=== PATIENT | female | born 1965 | race Caucasian/White ===

== ENCOUNTER 2020-05-10 14:08 | Outpatient (CLI) | payer BC, SELFPAY ==
--- NOTE | 2020-05-10 14:10 | ECG_ITS ---
Measurements Intervals [place] Rate: 93 P: 66 [place]: 134 QRS: 61 QRSD: 81 T: 40 QT: 331 QTc: 414 Interpretive Statements SINUS RHYTHM POSSIBLE LEFT ATRIAL ENLARGEMENT RSR' IN V1 OR V2, CONSIDER RIGHT VENTRICULAR HYPERTROPHY OR RIGHT VCD MINIMAL Q WAVES- INFERIOR LEADS BASELINE ARTIFACT- V4, V6 BORDERLINE ECG Electronically Signed On 05-10-2020 14:27:21 CDT by Zachery Jonhston D.O.
[2020-05-10 14:56] LABS: Alanine Aminotransferase 14 U/L (4-35); Albumin Level 4.1 g/dL (3.5-5.1); Alkaline Phosphatase 71 U/L (38-126); Amylase 126 U/L (30-110); Aspartate Amino Transferase 24 U/L (14-36); Bilirubin,Total 0.2 mg/dL (0.2-1.3); Lipase 160 U/L (23-300)
== END 2020-05-10 14:09 | disposition home or self-care (01) ==
PROVIDERS: PCP Family Medicine; Visit Provider Surgery
DX: K80.10 Calculus of gallbladder with chronic cholecystitis without obstruction (principal); Z01.818 Encounter for other preprocedural examination; R94.31 Abnormal electrocardiogram [ECG] [EKG]
CPT/HCPCS: 36415; 80076; 82150; 83690; 93005

== ENCOUNTER 2020-05-11 01:12 | Outpatient (CLI) | payer BC, SELFPAY ==
[2020-05-11 18:06] LABS: SARS-CoV-2 RNA PCR Negative
== END 2020-05-11 01:13 | disposition home or self-care (01) ==
LOC: ANHCOVIDDT 01:12
PROVIDERS: PCP Family Medicine; Visit Provider Surgery
DX: Z01.812 Encounter for preprocedural laboratory examination (principal); Z11.59 Encounter for screening for other viral diseases
CPT/HCPCS: 87635; C9803; U0003

== ENCOUNTER 2020-05-14 03:51 | Day surgery (SDC) | payer BC, SELFPAY ==
[2020-05-09 10:10] VITALS: BMI 24.2
[2020-05-14] VITALS (9 sets, daily range): BP systolic 112–151; BP diastolic 71–97; PULSE 65–87; RESP 12–16; TEMP 36.3; O2SAT 98–100
[2020-05-14] MEDS: LACTATED RINGERS 1,000 ML 30 ML IV CONT ×2 (12:30→16:16)
[2020-05-14] MEDS: KETOROLAC 15 MG/ML VIAL (*BKC) IV PUSH (12:52)
[2020-05-14] MEDS: ACETAMINOPHEN 500 MG TABLET 1000 MG PO (12:52)
--- NOTE | 2020-05-14 12:58 | P.PNAN_ITS ---
Anes - Initial Pre Proc Eval Procedure: Operation Date: 05/14/20 13:00 Proposed Procedures p Laparoscopic Cholecystectomy, Possible Open, Possible Intraoperative Cholangiogram - Jose Maria Cuevas MD s Umbilical Hernia Repair - Jose Maria Cuevas MD Date/Time: 05/14/20 12:58 Surgeon: Jose Maria Cuevas MD Pre Op Diagnosis: Chronic Cholecystitis With Cholelithiasis,Umbil he Patient Data Age: 54 Gender: F Height: 5 ft 6 in Weight: 68.04 kg Allergies Allergy/AdvReac Type Severity Reaction Status Date / Time latex Allergy Severe unsure if Verified 05/09/20 10:13 true allergy- unknown reaction Penicillins Allergy Mild Rash Verified 05/09/20 10:13 Sulfa (Sulfonamide Allergy Mild Rash Verified 05/09/20 10:13 Antibiotics) quinine AdvReac Mild LEG Verified 05/09/20 10:13 SWELLING TAPE Allergy Severe RASH, Uncoded 05/09/20 10:13 BLISTERS Home Medications Medication Instructions Recorded Confirmed Type bupropion HCl 300 mg 24 hr tablet, 300 mg PO QAM 05/08/20 05/09/20 History extended release celecoxib 200 mg capsule 200 mg PO DAILY 05/08/20 05/09/20 History estradiol 1 mg tablet 1 mg PO DAILY 05/08/20 05/09/20 History ropinirole 1 mg tablet 1 mg PO HS 05/08/20 05/09/20 History multivitamin 1 tablet PO DAILY 05/09/20 05/09/20 History oxybutynin chloride 10 mg PO DAILY 05/09/20 05/09/20 History trazodone 50 mg PO HS 05/09/20 05/09/20 History Patient hx anesthesia problems: none Family hx anesthesia problems: none PMFSH Past Medical History Medical History (Updated 05/14/20 @ 12:58 by Nicolas Franklin MD) Anxiety Depression Restless leg syndrome Surgical History Surgical History (Updated 05/08/20 @ 09:13 by Dianne Forman) History of cataract extraction History of hip replacement History of hysterectomy History of removal of cyst Family History Family History (Updated 05/08/20 @ 09:14 by Dianne Forman) Unknown Heart disease Father COPD (chronic obstructive pulmonary disease) Social History Social History (Updated 05/08/20 @ 08:46 by Dianne Forman) Smoking packs per day: 0.5 Smoking cigarettes per day: 10.0 Years smoked: 30 Smoking pack-years: 15.00 Smoking status: Former smoker Additional smoking assessment comments: QUIT 3 YEARS AGO Alcohol intake: current Drinks per week: 5 Additional occupation/education comments: ASSEMBLY WORKER Spiritual care concerns: No Anes - Eval Final PreProcedure Day of Procedure 05/14/20 12:58 Patient weight: normal Heart: regular rate and rhythm Lungs: clear to auscultation Airway: Mallampati scale class II Neurological: alert and oriented Last oral intake: >/= 8 hours ASA classification: II Emergent: no Anesthetic plan: proceed Anesthesia type and monitoring: general ETT and standard monitoring Informed Consent: The patient's anesthetic plan and its attendant risks and benefits were discussed with the patient/family/POA. Questions were solicited and answers provided to the satisfaction of the patient/family/POA.
--- NOTE | 2020-05-14 13:06 | WPDHPUPDATE1 ---
History and Physical Update Update Date/Time: 05/14/20 13:06 History and Physical has been reviewed, including an updated exam of the patient. There are NO changes in the patient's condition. Risks, benefits, and alternatives of a laparoscopic cholecystectomy, with possible intraoperative cholangiogram, possible open cholecystectomy have been discussed and questions answered. Patient agrees to proceed with procedure.
[2020-05-14] MEDS: CLINDAMYCIN 900 MG/NS 50 ML 900 MG/50 ML PIGGYBACK 50 MG IVPB (13:58)
[2020-05-14] MEDS: BUPIVACAINE/EPINEPHRINE 0.5% 30 ML VIAL INFILTRATE (14:25)
--- NOTE | 2020-05-14 16:16 | P.OP_ITS ---
Procedure Note - Detailed Date of procedure: 05/16/20 Pre-op diagnosis: Chronic Cholecystitis With Cholelithiasis,Umbil he Chronic Cholecystitis with Cholelithiasis Small umbilical hernia Post-op diagnosis: same Procedure performed: Laparoscopic Cholecystectomy Repair of small umbilical hernia Description of procedure: Patient was seen preoperatively in the holding area and risks, benefits and alternatives confirmed. Patient was taken to the operating room and general anesthesia was induced. A time out was then preformed with the surgery team confirming patient and site of surgery. The abdomen was prepped and draped in the usual sterile fashion. Incision was made just below the umbilicus with an 11 blade knife. A small umbilical hernia was dissected out and we simply probe through this and we were within the abdomen. I placed 2 stay sutures of O- Vicryl on either side of the mid-line fascia beneath the umbilicus and was then able to slide in the Hollis cannula through the fascial defect into the per itoneum. First under low flow and then under high flow the abdomen was insufflated with carbon dioxide never exceeding a pressure of 14. Three 5 mm trocars were then introduced under direct vision. The following trocars were introduced under direct vision: a 5 mm in the epigastrium and two 5 mm trocars along the right costal margin laterally in the subcostal area. There were significant o mental adhesions to the underside of the gallbladder. These were taken down with blunt and sharp dissection using some Bovie cautery for hemostasis. We were able to dissect this completely away from the neck of the gallbladder. I then carefully used the L-shaped cautery and the [place] dissector to dissect out the triangle of [place]. I then was able to dissect out both the cystic duct and cystic artery and identify a window of safety. The gall bladder was grasped and the cystic duct and artery were dissected free and clipped with an 5 mm endo-clip federal district law clerk. The cystic duct and artery were clipped with use of 2 clips on the patient's side 1 on the gallbladder side utilizing a 5 mm endoclip- federal district law clerk. The cystic duct was then transected. The cystic artery was also transected at this point. Just behind the anterior branch of the cystic artery there was a posterior branch this was also clipped with 2 clips on the patient's side then cut and it did look like an artery when cut across. The gall bladder was removed using electrocautery and then removed from the abdomen using an endobag. In order to get the large stone out of the abdomen within the gallbladder I did make the fascial defect slightly larger with [place] scissors. The trocars were removed visualizing hemostasis and the remaining gas evacuated. The large trocar site at the umbilicus was closed transversely with use of 3 interrupted simple sutures of # 1. Vicryl and 1 of an 0 Vicryl. The 2 stay sutures of 0 Vicryl mentioned above were removed after using them to elevate the fascia. Further local anesthetic was placed into each incision for postop pain control. The skin incisions were closed with subcuticular suture of 4-0 Monocryl. Surgical glue then was applied to all the incisions. Patient tolerated the procedure well was taken to the recovery room in good condition. Anesthesia: ANNABELLE Surgeon: Jose Maria Cuevas MD Hair Clipper Power: Mary HOLM, OR financial assistance specialist Estimated blood loss (mL): 50 Drains: No Packing: No Pathology: yes (Gallbladder) Complications: No immediate complications Condition: stable Disposition: PACU
[2020-05-14] MEDS: ONDANSETRON INJ 4 MG/2 ML VIAL IV PUSH (17:52)
== END 2020-05-14 18:33 | disposition home or self-care (01) ==
PROVIDERS: PCP Family Medicine; Visit Provider Surgery
PROC: 0FT44ZZ Resection of Gallbladder, Percutaneous Endoscopic Approach (ICD-10-PCS; CPT 47562; principal; 2020-05-14 13:00)
PROC: (CPT 47562; 2020-05-14 13:00)
DX: K80.10 Calculus of gallbladder with chronic cholecystitis without obstruction (principal); K42.9 Umbilical hernia without obstruction or gangrene; F41.8 Other specified anxiety disorders; G25.81 Restless legs syndrome; Z87.891 Personal history of nicotine dependence
CPT/HCPCS: 47562; 87635; 88302; 88304; A9270; C9803; J1100; J1170; J1885; J2250; J2405; J2704; J2710; J3010; J7120; U0003

== ENCOUNTER → 2022-05-06 15:11 | Outpatient (CLI) | payer BC, SELFPAY ==
--- NOTE | ~2022-05-06 | MM_ITS ---
EXAMINATION: MM screening adina BI w wolfgang HISTORY: Screening TECHNIQUE: Craniocaudal and mediolateral oblique 3-D tomosynthesis images were obtained and synthetic 2-D images were generated. CAD analysis was submitted and interpreted. COMPARISON: No prior mammogram is available for comparison at this institution. BREAST PARENCHYMAL COMPOSITION: Breast composed of scattered areas of fibroglandular density FINDINGS: There are bilateral breast asymmetries in the upper outer quadrant of both breasts. There a re no suspicious calcifications or architectural distortion. IMPRESSION: 1. Bilateral breast asymmetries. 2. Additional spot compression and mediolateral views with possible follow-up breast ultrasound recom mended. BI-RADS CATEGORY 0 - INCOMPLETE STUDY, NEED ADDITIONAL IMAGING EVALUATION. Reviewed, dictated and finalized at location A. IMPRESSION: 1. Bilateral breast asymmetries. 2. Additional spot compression and mediolateral views with possible follow-up b reast ultrasound recommended. BI-RADS CATEGORY 0 - INCOMPLETE STUDY, NEED ADDITIONAL IMAGING EVALUATION.
== END ==
PROVIDERS: PCP Physician Assistant; Visit Provider Physician Assistant
DX: Z12.31 Encounter for screening mammogram for malignant neoplasm of breast (principal); R92.8 Other abnormal and inconclusive findings on diagnostic imaging of breast
CPT/HCPCS: 77063; 77067

== ENCOUNTER → 2022-05-27 14:01 | Outpatient (CLI) | payer BC, SELFPAY ==
--- NOTE | ~2022-05-27 | MMUS_ITS ---
EXAMINATION: MM diagnostic adina BI w wolfgang, US breast BI complete HISTORY: Bilateral breast mammographic asymmetry reported on 05/06/2022 screening mammogram examination s TECHNIQUE: Additional 3-D tomosynthesis images of both breasts were performed and synthetic 2-D image s were generated. CAD analysis was submitted and interpreted. High resolution bilateral complete cathryn st ultrasound including all 4 quadrants and subareolar areas of each breast was performed. COMPARISON: 05/06/2022 bilateral screening mammogram FINDINGS: MAMMOGRAPHIC FINDINGS: Bilateral fibroglandular asymmetry is again noted. No prior examinations are available for comparison . Bilateral complete breast ultrasound examination was performed. ULTRASOUND: Right breast: 11:00 4 cm from nipple: 3.5 x 2 x 2.8 mm cyst 1:00 3 cm from nipple: 3.5 x 2.3 x 2.8 mm cyst Left breast: 1:00 3 cm from nipple: 2.8 x 2.9 x 2.1 mm circumscribed hypoechoic lesion without internal vascularit y or posterior shadowing 6:00 1 cm from nipple: Mildly irregular hypoechoic 3.4 x 2.6 x 3.2 mm lesion without internal vascula rity or posterior shadowing IMPRESSION: 1. Probable benign findings 2. Recommend 6 month targeted left breast ultrasound examination at 1:00 3 cm from nipple and 6:00 1 cm from nipple BI-RADS category 3, probably benign findings. Reviewed, dictated and finalized at location A. IMPRESSION: 1. Probable benign findings 2. Recommend 6 month targeted left breast ultrasound examination at 1:00 3 cm f rom nipple and 6:00 1 cm from nipple BI-RADS category 3, probably benign findings.
== END ==
PROVIDERS: PCP Physician Assistant; Visit Provider Obstetrics & Gynecology
DX: R92.8 Other abnormal and inconclusive findings on diagnostic imaging of breast (principal)
CPT/HCPCS: 76641; 77062; 77066; G0279

== ENCOUNTER → 2023-04-22 14:44 | Outpatient (CLI) | payer BC, SELFPAY ==
--- NOTE | ~2023-04-22 | US_ITS ---
US breast LT limited DATE: 04/22/2023 15:07 INDICATION: Short-term follow-up targeted left breast ultrasound examination at 1:00 3 cm from nipple and 6:00 1 cm from nipple, recommend on 05/27/2022 diagnostic mammogram and ultrasound examination TECHNIQUE: Real-time and color flow imaging at left breast 1:00 3 cm from nipple and 6:00 1 cm from n ipple COMPARISON: 05/27/2022 bilateral complete breast ultrasound examination FINDINGS: 1:00 3 cm from nipple: Circumscribed 2.1 x 3.2 x 2.2 mm sonolucency without internal vascularity or p osterior shadowing, likely a small cyst, not significantly changed in size since 05/27/2022 6:00 1 cm from nipple: Parallel circumscribed oval hypoechoic approximately 2 x 2.9 x 3.3 mm, without internal vascularity or posterior shadowing, not significantly changed in size since 05/27/2022. IMPRESSION: BI-RADS Category 2: Benign findings Recommendation: Routine annual mammographic screening in May 2023 Reviewed, dictated and finalized at [facility]. Reviewed, dictated and finalized at location A.
== END ==
PROVIDERS: PCP Obstetrics & Gynecology; Visit Provider Obstetrics & Gynecology
DX: R92.8 Other abnormal and inconclusive findings on diagnostic imaging of breast (principal)
CPT/HCPCS: 76642

== ENCOUNTER 2024-10-14 15:22 | Outpatient (CLI) | payer BC, SELFPAY ==
--- NOTE | ~2024-10-14 | MM_ITS ---
EXAMINATION: MM screening adina BI w wolfgang HISTORY: Screening TECHNIQUE: Craniocaudal and mediolateral oblique 3-D tomosynthesis images were obtained and synthetic 2-D images were generated. CAD analysis was submitted and interpreted. COMPARISON: Comparison to multiple prior studies sequentially, with oldest reviewed study dated 03/2022. BREAST PARENCHYMAL COMPOSITION: Dense: The breasts are heterogeneously dense, which may obscure small masses FINDINGS: Bilateral .breast asymmetries are stable. There is no evidence of suspicious mass, calcific ation, or architectural distortion to suggest malignancy in either breast. There has been no suspicio us interval change. IMPRESSION: 1. No mammographic evidence of malignancy. 2. Recommend routine screening mammography in one year. BI-RADS Category 1: Negative Reviewed, dictated and finalized at location B. SPHERIC SCIENTIST
--- OUTSIDE RECORDS SUMMARY | 2024-10-18 01:31 | XMS_ITS | Encounter Summary ---
Author Organization [facility] Address [facility] [place] [address] [place] [address] Care Team Providers Care Forging Die Sinker Name Role Phone Sabas Kamara MD Primary Care Provider [phone] Yolanda Huston APRN SHELLFISH MANAGER-C Unavailable [phone] Reason for Visit * Reason Onset Date Comments Appointment Request 06/07/2019 Encounter Details Date Type Department Care Team (Late st Contact Info) Description 06/07/2019 Telephone [facility] [address] [place] [address] [place] [address] Haim Pierce CMA Appointment Request Social History Tobacco Use Types Packs/Day Years Used Date Smoking Tobacco: Former Cigarettes Q uit: 2017 Smokeless Tobacco: Never Alcohol Use Standard Drinks/Week Comments Yes 1.7 (1 standard drink = 0.6 oz p ure alcohol) daily Comments No Sex and Gender Information Value Date Recorded Sex Assigned at Female 04/15/2019 8:23 AM CDT Legal Sex Female 7:50 PM CDT Gender Identity Female 04/15/2019 8:23 AM CDT Sexual Orientation Not on file documented as of this encounter Progress Notes * Haim Pierce CMA - 06/07/2019 10:15 AM CDT I called patient to schedule her to see Dr Mandujano regarding Lung Biopsy, she absolutely refused to schedule, risks and benefits discussed she stated she would follow up with PCP. I phoned PCP office Dr Sabas Kamara to make them aware documented in this encounter Plan of Treatment Not on file documented as of this encounter Visit Diagnoses Not on filedocumented in this encounter Care Teams Forging Die Sinker Relationship Specialty Start Date End Date Sabas Kamara MD [address] [place] [phone] PCP - General FAMILY PRACTICE 03/31/19 Yolanda Huston APRN, SHELLFISH MANAGER-C [address] [place] [phone] CARDIOVASCULAR DISEASE 03/31/19 documented as of this encounter
--- OUTSIDE RECORDS SUMMARY | 2024-10-18 01:31 | XMS_ITS | Encounter Summary ---
Author Organization [facility] Address [address] [place] [address]. [place], [place] [id number] [place] [id number] Care Team Providers Care Nail Galvanizer Name Role Phone Sabas Kamara MD Primary Care Provider [phone] Yolanda Huston APRN, LOAN ANALYST-C Unavailable [phone] Encounter Details Date Type Department Care Team (Latest Contact Info) Description 05/02/2020 Travel Social History Tobacco Use Types Packs/Day Years Used Date Smoking Tobacco: Former Cigarettes Q uit: 2017 Smokeless Tobacco: Never Alcohol Use Standard Drinks/Week Comments Yes 1.7 (1 standard drink = 0.6 oz p ure alcohol) daily AUDIT-C Answer Date Recorded Frequency of Alcohol Consumption Monthly or less 05/02/2020 Average Number of Drinks Not on file 020 Frequency of Binge Drinking Not on file 11/2019 Comments No Sex and Gender Information Value Date Recorded Sex Assigned at Female 04/15/2019 8:23 AM CDT Legal Sex Female 7:50 PM CDT Gender Identity Female 04/15/2019 8:23 AM CDT Sexual Orientation Not on file COVID-19 Exposure Response Date Recorded In the last month, have you been in contact with someone who was confirmed or suspected to have Coronavirus / COVID-19? No / Unsure 05/02/2020 3:32 PM CDT documented as of this encounter Plan of Treatment Not on file documented as of this encounter Visit Diagnoses Not on filedocumented in this encounter Care Teams Nail Galvanizer Relationship Specialty Start Date End Date Sabas Kamara MD [address] [place] [phone] PCP - General FAMILY PRACTICE 03/31/19 Yolanda Huston APRN, LOAN ANALYST-C [address] [place] [phone] CARDIOVASCULAR DISEASE 03/31/19 documented as of this encounter
--- OUTSIDE RECORDS SUMMARY | 2024-10-18 01:31 | XMS_ITS | Encounter Summary ---
Author Organization [facility] Address [address] [place] [address]. [place] [address] [place] [address] Care Team Providers Care Cdl Service Technician Name Role Phone Sabas Kamara MD Primary Care Provider [phone] Yolanda Lehman APRN, DETHISTLER OPERATOR-C Unavailable [phone] Encounter Details Date Type Department Care Team (Late st Contact Info) Description 04/01/2019 Orders Only [facility] [address] [place] [address] Yolanda Lehman APRN, DETHISTLER OPERATOR-C [address] [place] [address] Social History Tobacco Use Types Packs/Day Years Used Date Smoking Tobacco: Former Cigarettes Q uit: 2017 Smokeless Tobacco: Never Alcohol Use Standard Drinks/Week Comments Yes 1.7 (1 standard drink = 0.6 oz p ure alcohol) daily Comments Unknown Sex and Gender Information Value Date Recorded Sex Assigned at Female 04/15/2019 8:23 AM CDT Legal Sex Female 7:50 PM CDT Gender Identity Female 04/15/2019 8:23 AM CDT Sexual Orientation Not on file documented as of this encounter Plan of Treatment Not on file documented as of this encounter Procedures Procedure Name Priority Date/Time Associated Diagnosis Comments ELECTROCARDIOGRAM (NON MIDMARK ACQUIRED) Routine 04/01/2019 11:38 AM CDT Other chest pain documented in this encounter Results * ELECTROCARDIOGRAM (04/01/2019 11:38 AM CDT) 04/01/2019 11:3 8 AM CDT Narrative [facility] - 04/05/2019 11:26 AM CDT ?[facility] ? Test Date: ?2019-04-01 Pat Name: ? ASHU AGUSTIN ?Department: ? Room: ? Gender: ? F ?Property Loss Insurance Claim Adjuster: ?? : ?1965 ? Requested By: YOLANDA SIEGRIST Order Number: [id number] ?Reading MD: ?? Cristobal Anand ? Measurements Intervals ?[place] ? Rate: ? 68 ? P: ?68 HI: ? 132 ?QRS: ?63 QRSD: ? 81 ? T: ?45 QT: ? 375 ? QTc: ?399 ? Interpretive Statements SINUS RHYTHM MINIMAL VOLTAGE CRITERIA FOR LVH, CONSIDER NORMAL VARIANT Procedure Note Cristobal Anand MD - 04/05/2019 [facility] Test Date: 2019-04-01 Pat Name: ASHU AGUSTIN Department: Room: Gender: F Property Loss Insurance Claim Adjuster: : 1965 Requested By: YOLANDA LEHMAN Order Number: [id number] Reading MD: Cristobal Anand Measurements Intervals [place] Rate: 68 P: 68 HI: 132 QRS: 63 QRSD: 81 T: 45 QT: 375 QTc: 399 Interpretive Statements SINUS RHYTHM MINIMAL VOLTAGE CRITERIA FOR LVH, CONSIDER NORMAL VARIANT Yolanda Lehman APRN, NP-Bhupendra PROCEDURES-ORDERABLE N O CHARGE Final Result [facility] [address] [place] [address] documented in this encounter Visit Diagnoses Diagnosis Other chest pain- Primary documented in this encounter Care Teams Cdl Service Technician Relationship Specialty Start Date End Date Sabas Kamara MD [address] [place] [phone] PCP - General FAMILY PRACTICE 03/31/19 Yolanda Lehman APRN, SANIYA-C [address] [place] [address] CARDIOVASCULAR DISEASE 03/31/19 documented as of this encounter
--- OUTSIDE RECORDS SUMMARY | 2024-10-18 01:31 | XMS_ITS | Encounter Summary ---
Author Organization [facility] Address [address] [place] [address]. [place] [address] [place] [address] Care Team Providers Care Staff Consultant Name Role Phone Sabas Kamara MD Primary Care Provider [phone] Yolanda Huston APRN DIRECTOR RIVER RESTORATION-C Unavailable [phone] Reason for Visit * Auth/Cert Specialty Diagnoses / Procedures Referred By Contac t Referred To Contact Diagnoses PELVIC MASS Procedures EXC TUMOR PELVIS HIP 5 CM OR GREATER ROBOTIC XI LAPAROSCOPIC ASSISTED EXCISION OF PELVIC MASS, POSSIBLE OMENTECTOMY, POSSIBLE BILATERAL PELVIC AND PARA AORTIC LYMPH NODE DISSECTION, POSSIBLE TUMOR DEBULKING, POSSIBLE STAGING FOR OVARIAN CANCER, POSSIBLE CYSTOSCOPY, POSSIBLE OPEN PROCEDURE Referral ID Status Reason Start Date Expiration Date Visits Re quested Visits Authorized [id number] 1 1 Encounter Details Date Type Department Care Team (Late st Contact Info) Description 05/19/2019 12:51 PM CDT Anesthesia Event [place] [address] [place] [address] Beti Liao MD Barnett, Cheri L, RN Anesthesia Record Procedure Summary Procedure Name Responsible Anesthesiologist Anesthesia Start Time Anesthesia Stop Time ROBOTIC XI LAPAROSCOPIC ASSISTED EXCISION OF left PELVIC MASS, left ureterolysis Beti Liao MD 05/19/19 1251 05/19/19 1542 Events Date Time Event Comment 05/19/2019 1219 1219 AN Anesthesia Prepped 1251 An Start Patient ID and consent checked and patient reassessed. 1251 An Start Data 1255 Preoxygenation 1259 An Induction 1302 An Intubation 1311 Anesthesia Ready 1528 An Extubation 1537 an stop data 1542 Post Anesthetic Care Handoff I completed my handoff to the receiving nurse during which we: 1. Identified the patient 2. Identified the responsible provider 3. Reviewed the pertinent medical history 4. Discussed the surgical course 5. Reviewed intra-op anesthesia management and issues during anesthesia 6. Set expectations for post-procedure period 7. Allowed opportunity for questions and acknowledgement of understanding. 1542 An Stop Meds Name Total midazolam (VERSED) 1 mg/mL injection 2 m g fentaNYL (SUBLIMAZE) 100 mcg/2 mL inject ion 300 mcg lidocaine (PF) (XYLOCAINE) 1% injection 70 mg propofol (DIPRIVAN) 200 mg/20 mL injecti on 150 mg rocuronium (ZEMURON) 50 mg/5 mL injectio n 90 mg phenylephrine (DARYL-SYNEPHRIN E) 10 mg in sodium chloride 0.9 % 250 mL infusion 440 mcg sugammadex (BRIDION) 200 mg/2 mL injecti on 300 mg glycopyrrolate (ROBINUL) injection 0.1 m g dexamethasone (DECADRON) 4 mg/mL injecti on 8 mg ondansetron (ZOFRAN) injection 4 mg clindamycin (CLEOCIN) IVPB 900 mg 900 mg levofloxacin (LEVAQUIN) IVPB 500 mg 500 mg HYDROmorphone (DILAUDID) injection 1 mg/ mL 1 mg ketorolac (TORADOL) 30 mg/mL injection 3 0 mg sodium chloride 0.9% infusion 600 mL lactated ringers infusion 1,000 mL * Agents Name O2 Air Inspired Sevoflurane Sevoflurane Ancillary O2 * Blood No blood administrations on file. Lines, Drains, and Airways Type Details Placement Removal Peripheral IV Placement Date: 05/02 06/20; Placement Time: 1241; Size: 18 G; Orientation: Left; Location: Forearm; Site Prep: Chlorhexidine; Local Anesthetic: None; Inserted By: Sammie Ron RN ; Insertion attempts: 1; Ultrasound-guided Placement?: No; Patient Tolerance: Tolerated well; Removal Date: 05/19/19; Removal Time: 1833; Removal Reason: Patient Discharged 05/19/19 1241 by Carmen Ron RN 05/19/19 1833 by Radha Shafer RN NG/OG Tube Placement Date: 05/02 06/20; Placement Time: 1304; Tube Type: Orogastric; Tube Location: Oral; Removal Date: 05/19/19; Removal Time: 1522; Removal Reason: End of Case 05/19/19 1304 by Karrie Benavidez CRNA 05/19/19 1522 by Sumit Brown CRNA Peripheral IV Placement Date: 05/02 06/20; Placement Time: 1308; Placed Outside of This Facility?: No; Size: 18 G; Orientation: Right; Location: Forearm; Site Prep: Alcohol; Local Anesthetic: None; Inserted By: QIANA Esquivel; Insertion attempts: 2; Ultrasound-guided Placement?: No; Patient Tolerance: Tolerated well; Removal Date: 05/19/19; Removal Time: 183; Removal Reason: Patient Discharged 05/19/19 1308 by Karrie Benavidez CRNA 05/19/19 1833 by Radha Shafer, RN Sampson Catheter 05/19/19; 1344; No; I & O - Strict I&O or Critically ill requiring I&O Q1-2hrs; 1; Hand hygiene performed, Site cleansed with sterile antiseptic, Sterile gloves, drape and lubricant used, Catheter inserted using aseptic technique, Sampson care post catheter insertion, Anchoring device applied, Drainage bag secured below level of bladder, Closed system maintained; 16 Fr. 05/19/19 1344 by Luis Patten RN 05/19/19 1833 by Radha Shafer, clinical reviewer/Incision 05/19/19; 1405; Surg ical Wound; Abdomen; Other (Comment); ADHESIVE DERMABOND (x1); 05/19/19; 204105/19/19 1405 by Luis Patten RN 05/19/192041 by Automatic Discharge Provider ETT Placement Date: 05/02 06/20; Placement Time: 1528; Placed Outside of This Facility?:No; Mask Ventilate: Prior to intubation, Easy; Size (mm) : 7; Endotracheal: Oral, Stylet used; Blade Type: MAC 3; Placement Method: Direct Laryngoscopy (blade type in comment); View Grade: 1; Viewable Anatomy: Epiglottis, Arytenoid, Vocal cords; Insertion Attempts: 1; Placement Verified By: Capnography, Auscultation, Chest Rise; Placed By: Nurse, LEGAL BILLING CLERK (Tobias Sheth, QIANA); Extubation Assessment: Suctioned, Alert, Tolerated well, Aware of surroundings, Patient spontaneously breathing, Able to follow simple commands, Strong hand grasp, Moves all extremities strongly, Lifts et holds head > 5 seconds, Deep breathes w/equal chest movements, Able to swallow, Atraumatic; Removal Date: 05/19/19; Removal Time: 153; Removal Person: LEGAL BILLING CLERK; Removal Reason: End of Case 05/19/19 1528 by Karrie Benavidez CRNA 05/19/19 1531 by Sumit Brown CRNA documented in this encounter Social History Tobacco Use Types Packs/Day Years [...] on file documented as of this encounter OR Notes * Anesthesia Postprocedure Evaluation - Pepe Layton MD - 05/19/2019 3:58 PM CDT Anesthesia Post-op Note Gabi Sheth Procedure(s): ROBOTIC XI LAPAROSCOPIC ASSISTED EXCISION OF left PELVIC MASS, leftureterolysis (N/A ) Anesthesia type: general Vitals: 05/19/19 1557 BP: 120/78 Vitals: 05/19/19 1557 Pulse: 97 Vitals: 05/19/19 1557 Resp: 16 Vitals: 05/19/19 1538 Temp: 36 ??C Vitals: 05/19/19 1557 SpO2: 99% Patient Location: PACU Level of Consciousness: awake, alert and oriented Pain Management: adequate analgesia Airway Patency: patent Respiratory Status: acceptable, room air and spontaneous ventilation Cardiovascular Status: acceptable and hemodynamically stable Post-Op Nausea: none Postoperative Hydration: euvolemic Complications: no anesthesia complication * Anesthesia Preprocedure Evaluation - Beti Liao MD - 05/17/2019 9:59 AM CDT Anesthesia ROS/MED History Reviewed: Patient summary , Anesthesia history , Medications , Labs , Images/Studies , Unchecked boxes are not applicable Pre-Anesthetic State: alert, awake and responds appropriately no history of anesthetic complications Pulmonary (+) smoker (former, quit 2017) ROS comment: Multiple pulmonary nodules Cardiovascular Exercise tolerance:good ROS comment: SINUS RHYTHM MINIMAL VOLTAGE CRITERIA FOR LVH, CONSIDER NORMAL VARIANT Neuro/Psych (+) depression, psychiatric problem, (anxiety) Comments: RLS GI/Hepatic/Renal Comments: Diverticulosis Endo/Other (+) arthritis, (OA) Comments: Complex cystic left pelvic mass S/p hysterectomy GENERAL COMMENTS Pre-op diagnosis: PELVIC MASS Physical Evaluation Airway Mallampati: II TM Distance: >3 FB Neck ROM: normal Dental No notable dental history Pulmonary Pulmonary exam normal Breath sounds clear to auscultation Cardiovascular Rhythm: regular Rate: normal Cardiovascular exam normal Anesthesia Plan ASA 2 Intravenous Induction Anesthesia type: general 2nd IV Informed Consent Anesthetic plan and risks discussed with patient of whom consent was obtained. . documented in this encounter Plan of Treatment Not on file documented as of this encounter Visit Diagnoses Not on filedocumented in this encounter Administered Medications Inactive Administered Medications - up to 3 most recent administrations Medication Order MAR Action Action Date Dose Rate Site clindamycin (CLEOCIN) IVPB 900 mg 900 mg, Intravenous, at 100 mL/hr, geriatric nurse assistant, 1 dose, On Renea 05/19/19 at 1230, Pre-Op Given 05/19/2019 1:10 PM CDT 900 mg dexamethasone (DECADRON) injection Intravenous, PRN, Starting on Renea 05/19/19 at 1326, Until Renea 05/19/19 at 1545, Anesthesia Intra-Op Given 05/19/2019 1:26 PM CDT 8 mg fentaNYL (SUBLIMAZE) injection Intravenous, PRN, Starting on Renea 05/19/19 at 1259, Until Renea 05/19/19 at 1545, Anesthesia Intra-Op Given 05/19/2019 3:43 PM CDT 50 mcg Given 05/19/2019 3:38 PM CDT 25 mcg Given 05/19/2019 3:33 PM CDT 25 mcg glycopyrrolate (ROBINUL) injection Intravenous, PRN, Starting on Renea 05/19/19 at 1323, Until Renea 05/19/19 at 1545, Anesthesia Intra-Op Given 05/19/2019 1:23 PM CDT 0.1 mg HYDROmorphone (DILAUDID) injection PRN, Starting on Renea 05/19/19 at 1408, Until Renea 05/19/19 at 1545, Anesthesia Intra-Op Given 05/19/2019 2:58 PM CDT 0.3 mg Given 05/19/2019 2:46 PM CDT 0.2 mg Given 05/19/2019 2:34 PM CDT 0.3 mg ketorolac (TORADOL) injection PRN, Starting on Renea 05/19/19 at 1507, Until Renea 05/19/19 at 1545, Anesthesia Intra-Op Given 05/19/2019 3:07 PM CDT 30 mg lactated ringers infusion at 10 mL/hr, Intravenous, Continuous, Starting on Renea 05/19/19 at 1230, Until Renea 05/19/19 at 2042, Pre-Op New Bag 05/19/2019 3:10 PM CDT New Bag 05/19/2019 12:42 PM CDT 10 mL/hr levofloxacin (LEVAQUIN) IVPB 500 mg 500 mg, Intravenous, at 100 mL/hr, geriatric nurse assistant, 1 dose, On Renea 05/19/19 at 1230, Pre-Op Given 05/19/2019 1:25 PM CDT 500 mg lidocaine (PF) (XYLOCAINE) 1 % injection Intravenous, PRN, Starting on Renea 05/19/19 at 1259, Until Renea 05/19/19 at 1545, Anesthesia Intra-Op Given 05/19/2019 12:59 PM CDT 70 mg midazolam (VERSED) injection Intravenous, PRN, Starting on Renea 05/19/19 at 1249, Until Renea 05/19/19 at 1545, Anesthesia Intra-Op Given 05/19/2019 12:49 PM CDT 2 mg ondansetron (ZOFRAN) injection Intravenous, PRN, Starting on Renea 05/19/19 at 1507, Until Renea 05/19/19 at 1545, Anesthesia Intra-Op Given 05/19/2019 3:07 PM CDT 4 mg phenylephrine (DARYL-SYNEPHRINE) 10 mg in sodium chloride 0.9 % 250 mL infusion Intravenous, Continuous PRN, Starting on Renea 05/19/19 at 1307, Until Renea 05/19/19 at 1545, Anesthesia Intra-Op New Bag 05/19/2019 1:07 PM CDT 10 mcg/min 15 mL /hr propofol (DIPRIVAN) IV bolus Intravenous, PRN, Starting on Renea 05/19/19 at 1259, Until Renea 05/19/19 at 1545, Anesthesia Intra-Op Given 05/19/2019 12:59 PM CDT 150 mg rocuronium (ZEMURON) injection Intravenous, PRN, Starting on Renea 05/19/19 at 1259, Until Renea 05/19/19 at 1545, Anesthesia Intra-Op Given 05/19/2019 2:34 PM CDT 20 mg Given 05/19/2019 1:42 PM CDT 20 mg Given 05/19/2019 12:59 PM CDT 50 mg sodium chloride 0.9% infusion Intravenous, Continuous PRN, Starting on Renea 05/19/19 at 1309, Until Renea 05/19/19 at 1545, Anesthesia Intra-Op New Bag 05/19/2019 1:09 PM CDT sugammadex (BRIDION) injection Intravenous, PRN, Starting on Renea 05/19/19 at 1528, Until Renea 05/19/19 at 1545, Anesthesia Intra-Op Given 05/19/2019 3:28 PM CDT 300 mg documented in this encounter Care Teams Staff Consultant Relationship Specialty Start Date End Date Sabas Kamara MD [address] [place] [phone] PCP - General FAMILY PRACTICE 03/31/19 Yolanda Huston APRN, DIRECTOR RIVER RESTORATION-C [address] [place] [phone] CARDIOVASCULAR DISEASE 03/31/19 documented as of this encounter
--- OUTSIDE RECORDS SUMMARY | 2024-10-18 01:31 | XMS_ITS | Encounter Summary ---
Author Organization [facility] Address [address] [place] [address]. [place] [address] [place] [address] Care Team Providers Care Solar Sales Ambassador Name Role Phone Sabas Kamara MD Primary Care Provider [phone] Yolanda Huston APRN, NP-C Unavailable [phone] Reason for Visit * Auth/Cert Specialty Diagnoses / Procedures Referred By Contac t Referred To Contact Diagnoses Encounter for screening colonoscopy colon cancer screening, abdominal pain Procedures COLONOSCOPY DIAGNOSTIC WITH/WITHOUT SPECIMEN BRUSH/WASH Referral ID Status Reason Start Date Expiration Date Visits Re quested Visits Authorized [id number] 1 1 Encounter Details Date Type Department Care Team (Late st Contact Info) Description 04/18/2019 9:56 AM CDT Anesthesia Event [address] [place] [address] Carlos Bell MD [address] [place] [address] Salome Chan CRNA [address] [place] [address] Anesthesia Record Procedure Summary Procedure Name Responsible Anesthesiologist Anesthesia Start Time Anesthesia Stop Time COLONOSCOPY with polypectomy Carlos Bell MD 04/18/19 0956 04/18/19 1033 Events Date Time Event Comment 04/18/2019 0950 0950 AN INTEGRATED CIRCUIT DESIGN ENGINEER Prepped 0950 AN Anesthesia Prepped 0956 An Start Patient ID and consent checked and patient reassessed. 0956 An Start Data 0957 Face Mask Applied 0957 Anesthesia Ready 1029 an stop data 1033 Post Anesthetic Care Handoff I completed my handoff to the receiving nurse during which we: 1. Identified the patient 2. Identified the responsible provider 3. Reviewed the pertinent medical history 4. Discussed the surgical course 5. Reviewed intra-op anesthesia management and issues during anesthesia 6. Set expectations for post-procedure period 7. Allowed opportunity for questions and acknowledgement of understanding. 1033 An Stop Meds Name Total propofol (DIPRIVAN) 500 mg/50 mL injecti on 291.89 mg lactated ringers infusion 700 mL * Agents Name O2 N2O * Blood No blood administrations on file. Lines, Drains, and Airways Type Details Placement Removal Peripheral IV Placement Date: 04/02 05/20; Placement Time: 0930; Placed Outside of This Facility?: No; Size: 20 G; Orientation: Right; Location: Hand; Site Prep: Chlorhexidine; Local Anesthetic: None; Inserted By: Ruth Ann Gomez; Insertion attempts: 1; Ultrasound-guided Placement?: No; Patient Tolerance: Tolerated well; Removal Date: 04/18/19; Removal Time: 1100; Removal Reason: D/C'd Prior to This Admission 04/18/19 0930 by Natty Conley RN 04/18/19 1100 by Gaby Kimball RN documented in this encounter Social History Tobacco [...] OR Notes * Anesthesia Postprocedure Evaluation - Carlos Bell MD - 04/18/2019 10:46 AM CDT Anesthesia Post-op Note Gabi Sheth Procedure(s): COLONOSCOPY with polypectomy (N/A ) Anesthesia type: MAC Vitals: 04/18/19923 BP: (!) 134/91 Vitals: 04/18/19923 Pulse: 100 Vitals: 04/18/19923 Resp: 20 Vitals: 04/18/19923 Temp: 36.1 ??C Vitals: 04/18/19 0924 SpO2: 97% Patient Location: Phase II/Outpatient Level of Consciousness: awake, alert and oriented Pain Management: pain being treated or addressed Airway Patency: patent Respiratory Status: spontaneous ventilation and acceptable Cardiovascular Status: acceptable, stable and hemodynamically stable Post-Op Nausea: none Postoperative Hydration: euvolemic Complications: no anesthesia complication * Anesthesia Preprocedure Evaluation - Carlos Bell MD - 04/18/2019 9:35 AM CDT Anesthesia ROS/MED History Reviewed: Patient summary , Anesthesia history , Labs Pre-Anesthetic State: alert, awake and responds appropriately Pulmonary neg pulmonary ROS Cardiovascular neg cardio ROS Exercise tolerance:good Neuro/Psych neg neuro/psych ROS (+) depression GI/Hepatic/Renal neg GI/hepatic/renal ROS Endo/Other neg endo/other ROS Physical Evaluation Airway Mallampati: II TM Distance: >3 FB Neck ROM: normal Dental No notable dental history Pulmonary Breath sounds clear to auscultation Cardiovascular Rhythm: regular Rate: normal Cardiovascular exam normal Anesthesia Plan ASA 2 Intravenous Induction Anesthesia type: MAC Informed Consent Anesthetic plan and risks discussed with patient of whom consent was obtained. . documented in this encounter Plan of Treatment Not on file documented as of this encounter Visit Diagnoses Not on filedocumented in this encounter Administered Medications Inactive Administered Medications - up to 3 most recent administrations Medication Order MAR Action Action Date Dose Rate Site lactated ringers infusion at 10 mL/hr, Intravenous, Continuous, Starting on Thu04/18/19 at 0930, Until Renea 04/21/19 at 1200, Infuse at TKO rate, Pre-Op New Bag 04/18/2019 9:56 AM CDT New Bag 04/18/2019 9:38 AM CDT 10 mL/hr propofol (DIPRIVAN) IV bolus Intravenous, Continuous PRN, Starting on Thu04/18/19 at 0957, Until Thu04/18/19 at 1033, Anesthesia Intra-Op Rate/Dose Change 04/18/2019 10:15 AM CDT 100 mcg/kg/min 40.3 mL/hr Rate/Dose Change 04/18/2019 10:05 AM CDT 150 mcg/kg/min 60 .4 mL/hr Rate/Dose Change 04/18/2019 10:00 AM CDT 150 mcg/kg/min 60 .4 mL/hr documented in this encounter Care Teams Solar Sales Ambassador Relationship Specialty Start Date End Date Sabas Kamara MD [address] [place] [phone] PCP - General FAMILY PRACTICE 03/31/19 Yolanda Huston APRN, SLEEVE SETTER-C [address] [place] [phone] CARDIOVASCULAR DISEASE 03/31/19 documented as of this encounter
--- OUTSIDE RECORDS SUMMARY | 2024-10-18 01:31 | XMS_ITS | Encounter Summary ---
Author Organization [facility] Address [address] [place] [address]. [place] [address] [place] [address] Care Team Providers Care Threat Monitoring Analyst Name Role Phone Unavailable Primary Care Provider Unavailabl e Encounter Details Date Type Department Care Team (Late st Contact Info) Description 09/22/2013 Abstract [facility] [address] [place] [address] Social History Tobacco Use Types Packs/Day Years Used Date Smoking Tobacco: Never Assessed Comments Unknown Sex and Gender Information Value Date Recorded Sex Assigned at Female 04/15/2019 8:23 AM CDT Legal Sex Female 7:50 PM CDT Gender Identity Female 04/15/2019 8:23 AM CDT Sexual Orientation Not on file documented as of this encounter Plan of Treatment Not on file documented as of this encounter Visit Diagnoses Diagnosis Open wound of finger Open wound of finger(s) , without mention of complication documented in this encounter
--- OUTSIDE RECORDS SUMMARY | 2024-10-18 01:31 | XMS_ITS | Encounter Summary ---
Author Organization [facility] Address [address] [place] [address]. [place], [place] [address] [place] [address] Care Team Providers Care Ct Manager Name Role Phone Sabas Kamara MD Primary Care Provider [phone] Yolanda Huston APRN CCNA-C Unavailable [phone] Encounter Details Date Type Department Care Team (Late st Contact Info) Description 04/01/2019 12:15 PM CDT Procedure Only [facility] [address] [phone] Social History Tobacco Use Types Packs/Day Years [...] Procedure Name Priority Date/Time Associated Diagnosis Comments USE ECHOCARDIOGRAM Routine 04/01/2019 Shortness of breath documented in this encounter Results * USE ECHOCARDIOGRAM (04/01/2019) Anatomical Region Laterality Modality Cardiac Echocardiogram Yolanda Huston APRN CCNA-C ECHO Final Result documented in this encounter Visit Diagnoses Diagnosis Shortness of breath documented in this encounter Care Teams Ct Manager Relationship Specialty Start Date End Date Sabas Kamara MD [address] [place] [address] PCP - General FAMILY PRACTICE 03/31/19 Yolanda Huston APRN, CCNA-C [address] [place] [phone] CARDIOVASCULAR DISEASE 03/31/19 documented as of this encounter
--- OUTSIDE RECORDS SUMMARY | 2024-10-18 01:31 | XMS_ITS | Encounter Summary ---
Author Organization [facility] Address [address] [place] [address]. [place] [address] [place] [address] Care Team Providers Care Relay Shop Supervisor Name Role Phone Sabas Kamara MD Primary Care Provider [phone] Yolanda Huston APRN CAMP HOUSEKEEPER-C Unavailable [phone] Encounter Details Date Type Department Care Team (Late st Contact Info) Description 04/14/2019 Orders Only [facility] [address] [place] [address] Jordan Armando MD [address] [facility] [address] [place] [address] Social History Tobacco Use Types Packs/Day Years [...] Procedure Name Priority Date/Time Associated Diagnosis Comments CTA CHEST Routine 04/13/2019 Shortness of breath Elevated d-dimer documented in this encounter Results * CTA CHEST (04/13/2019) Anatomical Region Laterality Modality Chest Computed Tomogra phy us Jordan Armando MD CT Final Re sult documented in this encounter Visit Diagnoses Diagnosis Shortness of breath Elevated d-dimer Abnormal coagulation profile documented in this encounter Care Teams Relay Shop Supervisor Relationship Specialty Start Date End Date Sabas Kamara MD [address] [place] [phone] PCP - General FAMILY PRACTICE 03/31/19 Yolanda Huston APRN, CAMP HOUSEKEEPER-C [address] [place] [phone] CARDIOVASCULAR DISEASE 03/31/19 documented as of this encounter
--- OUTSIDE RECORDS SUMMARY | 2024-10-18 01:31 | XMS_ITS | Encounter Summary ---
Author Organization [facility] Address [address] [place] [address]. [place] [address] [place] [address] Care Team Providers Care Fellmongering Machine Operator Name Role Phone Sabas Kamara MD Primary Care Provider [phone] Yolanda Huston APRN, FURNACE FEEDER-C Unavailable [phone] Encounter Details Date Type Department Care Team (Late st Contact Info) Description 04/06/2019 Orders Only [facility] [address] [place] [address] Yolanda Huston APRN, FURNACE FEEDER-C [address] [place] [address] Social History Tobacco Use Types [...] as of this encounter Visit Diagnoses Diagnosis Shortness of breath- Primary Other chest pain documented in this encounter Care Teams Fellmongering Machine Operator Relationship Specialty Start Date End Date Sabas Kamara MD [address] [place] [address] PCP - General FAMILY PRACTICE 03/31/19 Yolanda Huston APRN, FURNACE FEEDER-C [address] [place] [phone] CARDIOVASCULAR DISEASE 03/31/19 documented as of this encounter
--- OUTSIDE RECORDS SUMMARY | 2024-10-18 01:31 | XMS_ITS | Encounter Summary ---
Author Organization [facility] Address [address] [place] [address]. [place], [place] [address] [place] [address] Care Team Providers Care Tool Machine Set Up Operator Name Role Phone Sabas Kamara MD Primary Care Provider [phone] Yolanda Huston APRN, JUNIOR BUSINESS ANALYST-C Unavailable [phone] Reason for Visit * Reason Onset Date Comments Lab Results 04/12/2019 Encounter Details Date Type Department Care Team ([facility] Contact Info) Description 04/12/2019 Telephone [facility] [address] [place] [address] Yolanda Huston APRN, JUNIOR BUSINESS ANALYST-C [address] [place] [address] Lab Results Social History Tobacco Use Types Packs/Day Years [...] as of this encounter Progress Notes * Gianna Griffin - 04/12/2019 12:59 PM CDT Gabi called for lab results. She can be reached @ [phone]. documented in this encounter Plan of Treatment Not on file documented as of this encounter Visit Diagnoses Not on filedocumented in this encounter Care Teams Tool Machine Set Up Operator Relationship Specialty Start Date End Date Sabas Kamara MD [address] [place] [phone] PCP - General FAMILY PRACTICE 03/31/19 Yolanda Huston APRN, JUNIOR BUSINESS ANALYST-C [address] [place] [phone] CARDIOVASCULAR DISEASE 03/31/19 documented as of this encounter
--- OUTSIDE RECORDS SUMMARY | 2024-10-18 01:31 | XMS_ITS | Encounter Summary ---
Author Organization [facility] Address [address] [place] [address]. [place] [address] [place] [address] Care Team Providers Care Education Officer Name Role Phone Sabas Kamara MD Primary Care Provider [phone] Yolanda Huston APRN, ACID CONCENTRATOR-C Unavailable [phone] Encounter Details Date Type Department Care Team (Late st Contact Info) Description 04/01/2019 Transcribe Orders [facility] Pre Access Team [address] [place], [place] [address] Yolanda Huston APRN, ACID CONCENTRATOR-C [address] [place] [address] Social History Tobacco Use Types Packs/Day Years [...] on filedocumented in this encounter Care Teams Education Officer Relationship Specialty Start Date End Date Sabas Kamara MD [address] [place] [address] PCP - General FAMILY PRACTICE 03/31/19 Yolanda Huston APRN, ACID CONCENTRATOR-C [address] [place] [address] CARDIOVASCULAR DISEASE 03/31/19 documented as of this encounter
--- OUTSIDE RECORDS SUMMARY | 2024-10-18 01:31 | XMS_ITS | Encounter Summary ---
Author Organization [facility] Address [address] [place] [address]. [place] [address] [place] [address] Care Team Providers Care Director Of Music Name Role Phone Sabas Kamara MD Primary Care Provider [phone] Yolanda Huston APRN, REDRAWER-C Unavailable [phone] Reason for Visit * Reason Comments Lab (SCAN) Encounter Details Date Type Department Care Team (Late st Contact Info) Description 05/11/2019 Scan [facility] [address] [place] [address] Scanned, Documents Lab (SCAN) Social History Tobacco Use Types Packs/Day Years [...] Procedure Name Priority Date/Time Associated Diagnosis Comments OUTSIDE LAB (SCAN ORDER) Routine 05/11/2019 documented in this encounter Results * OUTSIDE LAB (05/11/2019) 05/11/2019 us Documents Scanned SCANNING Final Result documented in this encounter Visit Diagnoses Not on filedocumented in this encounter Care Teams Director Of Music Relationship Specialty Start Date End Date Sabas Kamara MD [address] [place] [address] PCP - General FAMILY PRACTICE 03/31/19 Yolanda Huston APRN, REDRAWER-C [address] [place] [phone] CARDIOVASCULAR DISEASE 03/31/19 documented as of this encounter
--- OUTSIDE RECORDS SUMMARY | 2024-10-18 01:31 | XMS_ITS | Encounter Summary ---
Author Organization [facility] Address [address] [place] [address]. [place] [address] [place] [address] Care Team Providers Care Cod Clerk Name Role Phone Sabas Kamara MD Primary Care Provider [phone] Yolanda Lehman APRN, NP-C Unavailable [phone] Reason for Referral * Imaging (Routine) - Closed Specialty Diagnoses / Procedures Referred By Contac t Referred To Contact CARDIOLOGY Diagnoses Shortness of breath Other chest pain Procedures Stress Test only, exercise (SJS only) Yolanda Lehman APRN, ORAL SURGERY PHYSICIAN-C [address] [place] [address] Phone: tel: fax: [facility] [address] [place] [address] Phone: tel: fax: Referral ID Status Reason Start Date Expiration Date Visits Re quested Visits Authorized [id number] Closed 04/01/2019 05/01/2020 1 1 Encounter Details Date Type Department Care Team (Late st Contact Info) Description 04/01/2019 Orders Only [facility] [address] [place] [address] Yolanda Lehman APRN, MIANC [address] [place] [address] Social History Tobacco Use Types [...] on file documented as of this encounter Results * Stress Test only, exercise (SJS only) (04/01/2019 2:16 PM CDT) 04/01/2019 2:16 PM CDT Narrative [facility] - 04/04/2019 7:34 AM CDT ? [facility] ?[address] [place], [place] ??[address] ? Test Date: ?2019-04-01 Pat Name: ? ASHU SHETH ?Department: ? Room: ? Gender: ? Female ? Accounts Receivable Representative: ?? KEVEN/JARVIS BURKS: ?1965 ? Requested By: YOLANDA LEHMAN Order Number: [id number] ? Reading : ?? Henrry Gómez ? Interpretive Statements See Nurse interpretation IMP: 1. Maximal exercise stress test demonstrating good exercise tolerance with a somewhat accelerated heart rate response to exercise. ? 2. Chest pain was present at baseline and worsened somewhat with exercise. ? 3. No electrocardiographic evidence of exercise-induced myocardial ischemia was noted. Procedure Note Henrry Gómez MD - 04/04/2019 [facility] [address] [place] [address] Test Date: 2019-04-01 Pat Name: ASHU SHETH Department: Room: Gender: Female Accounts Receivable Representative: MIKE : 1965 Requested By: YOLANDA LEHMAN Order Number: [id number] Reading MD: Henrry Gómez Interpretive Statements See Nurse interpretation IMP: 1. Maximal exercise stress test demonstrating good exercisetolerance with a somewhat accelerated heart rate response to exercise. 2. Chest pain was present at baseline and worsened somewhat with exercise. 3. No electrocardiographic evidence of exercise-induced myocardial ischemia was noted. YENNIFER Alarcon APRN CV CARDIAC SERVICES OR DERABLES Final Result [facility] documented in this encounter Visit Diagnoses Diagnosis Shortness of breath- Primary Other chest pain Shortness of breath Other chest pain documented in this encounter Care Teams Cod Clerk Relationship Specialty Start Date End Date Sabas Kamara MD [address] [place] [phone] PCP - General FAMILY PRACTICE 03/31/19 Yolanda Lehman APRN, MIANC [address] [place] [phone] CARDIOVASCULAR DISEASE 03/31/19 documented as of this encounter
--- OUTSIDE RECORDS SUMMARY | 2024-10-18 01:31 | XMS_ITS | Encounter Summary ---
Author Organization [facility] Address [facility] [facility] [place] [address] [place] [address] Care Team Providers Care Cyber Forensic Specialist Name Role Phone Sabas Lomeli MD Primary Care Provider [phone] Yolanda Huston APRN, NP-C Unavailable [phone] Reason for Visit * Reason Comments Follow Up patient known to our office from previous colonoscopy. Gallbladder patient had CT in show gallstones - she would like follow up evaluation to address status and requests to postpone until fall if possible to avoid missing time off work. Encounter Details Date Type Department Care Team (Late st Contact Info) Description 05/02/2020 3:40 PM CDT Office Visit [facility] [address] [facility], [address] [place] [address] Hermes Alberto MD Follow Up (patient known to our office from previous colonoscopy.); Gallbladder (patient had CT in 2018 show gallstones - she would like follow up evaluation to address status and requests to postpone until fall if possible to avoid missing time off work.) Social History Tobacco Use Types Packs/Day Years [...] PM CDT documented as of this encounter Last Filed Vital Signs Vital Sign Reading Time Taken Comments Blood Pressure 130/83 05/02/2020 3:49 PM CDT Pulse 81 05/02/2020 3:49 PM CDT Temperature - - Respiratory Rate - - Oxygen Saturation - - Inhaled Oxygen Concentration - - Weight 65.8 kg (145 lb) 05/02/2020 3:49 PM CDT Height 167.6 cm (5' 6 ) 05/02/2020 3:49 PM CDT Body Mass Index 23.4 05/02/2020 3:49 PM CDT documented in this encounter Patient Instructions * Patient Instructions* Barbara Saenz MA - 05/02/2020 3:40 PM CDT Please bring CD of imaging performed at [facility] for review to determine if repeat US is needed. Pre-op labs: CBC and CMP Pre-op testing: CXR and EKG due to history of smoking in last 3 years. COVID-19 nasal swab testing required 72 hours preoperatively with mandatory isolation thereafter until your procedure. Testing can be completed between 6a- 10a every day except and Thursday. You will need to register at Emergency Department entrance and report to lab. Use Hibiclens in place of body wash the night before and morning of the procedure (see prep instructions provided). Nothing to eat or drink after midnight the night before your procedure. Laparoscopic Cholecystectomy is scheduled for TBD awaiting your availability and arrangements with employer. The Surgical Department at [facility] will contact you the day before with time of arrival. Follow up expected one week after your procedure unless otherwise noted. If you have any questions or concerns, contact our office: [facility] [address] [place] [address] documented in this encounter Progress Notes * Hermes Alberto MD - 05/02/2020 3:40 PM CDT .Reason for Visit: Follow Up (patient known to our office from previous colonoscopy.) and Gallbladder (patient had CT in 2019 show gallstones - she would like follow up evaluation to address status and requests to postpone until fall if possible to avoid missing time off work.) History of Present Illness: This is 54 years old female patient who had 1 year ago CAT scan for lung issues and was found to have calcified gallstones and possible gallbladder wall calcification. Patient admits to have right upper quadrant abdominal pain for year. She described pain as moderate, pressure-like, radiating to the back, associated with meals and nausea. Denies other symptoms as bloating, jaundice, diarrhea. No fever or chills. She is here to discuss gallbladder surgery. Patient sinking to proceed with surgeryin the fall. Her CAT scan was reviewed but not images. Images was requested. ROS: Review of Systems All other systems reviewed and are negative. Medications: Current Outpatient Medications: ??? buPROPion XL 150 MG 24 hr tablet, Take 150 mg by mouth 3 (three) times a day. , Disp: , Rfl: ??? calcium citrate-vitamin D 315 MG-250 UNIT 315-250 MG-UNIT Tab tablet, Take 1 tablet by mouth 2 (two) times daily as needed. , Disp: , Rfl: ??? celecoxib 200 MG capsule, Take 1 capsule by mouth daily., Disp: , Rfl: ??? estradiol 1 MG tablet, Take 1 mg by mouth nightly at bedtime. , Disp: , Rfl: ??? Multiple Vitamins-Minerals (MULTIVITAMIN ADULT OR), Take 1 tablet by mouth daily. , Disp: , Rfl: ??? oxybutynin XL 10 MG 24 hr tablet, Take 10 mg by mouth daily. , Disp: , Rfl: ??? ropinirole 1 MG tablet, Take 1 mg by mouth nightly at bedtime. , Disp: , Rfl: ??? traZODone 50 MG tablet, Take 1 tablet by mouth nightly., Disp: , Rfl: Allergies Allergen Reactions ??? Quinine Derivatives Swelling ??? Sulfa Antibiotics Swelling ??? Penicillins Rash Past Medical History: Diagnosis Date ??? Anxiety ??? Depression ??? Encounter for postoperative care 04/29/2019 ??? Encounter for screening colonoscopy 04/15/2019 ??? Generalized osteoarthritis ??? Multiple pulmonary nodules bx 05/17/19 ??? Pelvic mass ??? S/P colonoscopy 04/29/2019 Past Surgical History: Procedure Laterality Date ??? BLADDER SURGERY bladder tie up ? ? COLONOSCOPY & POLYPECTOMY 04/18/2019 Dr. Remy GARLAND, HPx2 ??? EYE SURGERY cataracts ??? HYSTERECTOMY ??? JOINT REPLACEMENT Left hip ??? TOTAL HIP ARTHROPLASTY Left Social History Socioeconomic History ??? Marital status: Spouse name: Not on file ??? Number of children: Not on file ??? Years of education: Not on file ??? Highest education level: Not on file Occupational History ??? Not on file Social Needs ??? Financial resource strain: Not on file ??? Food insecurity: Worry: Not on file Inability: Not on file ??? Transportation needs: Medical: Not on file Non-medical: Not on file Tobacco Use ??? Smoking status: Former Smoker Types: Cigarettes Last attempt to quit: 2017 Years since quittin.4 ??? Smokeless tobacco: Never Used Substance and Sexual Activity ??? Alcohol use: Yes Alcohol/week: 1.7 - 3.3 standard drinks Types: 1 - 2 Glasses of wine per week Frequency: Monthly or less Comment: daily ??? Drug use: No ??? Sexual activity: Not on file Lifestyle ??? Physical activity: Days per week: Not on file Minutes per session: Not on file ??? Stress: Not on file Relationships ??? Social connections: Talks on phone: Not on file Gets together: Not on file Attends mosque service: Not on file Active member of club or organization: Not on file Attends meetings of clubs or organizations: Not on file Relationship status: Not on file ??? Intimate partner violence: Fear of current or ex partner: Not on file Emotionally abused: Not on file Physically abused: Not on file Forced sexual activity: Not on file Other Topics Concern ??? Exercise Yes ??? Special Diet No ??? Caffeine Concern No Social History Narrative ??? Not on file Family History Problem Relation Name Age of Onset ??? Open Heart Father ??? Heart Disease Father ??? Stent Sister Family Status Relation Name Status ??? Father ??? Sister (Not Specified) ??? Mother Alive Physical Exam Constitutional: She is oriented to person, place, and time. She appears well-developed. HENT: Head: Normocephalic. Eyes: Pupils are equal, round, and reactive to light. Neck: Normal range of motion. Cardiovascular: Normal rate, regular rhythm and normal heart sounds. No murmur heard. Pulmonary/Chest: Effort normal and breath sounds normal. She has no wheezes. Abdominal: Soft. Bowel sounds are normal. She exhibits no distension and no mass. There is tenderness (Mild right upper quadrant and left lower quadrant.). There is no rebound and no guarding. No hernia. Old port site incision healed well. Musculoskeletal: Normal range of motion. Lymphadenopathy: She has no cervical adenopathy. Neurological: She is alert and oriented to person, place, and time. Skin: Skin is warm. Psychiatric: She has a normal mood and affect. Her behavior is normal. Judgment and thought contentnormal. Vitals reviewed. Filed Vitals: 05/02/20 1549 BP: 130/83 Pulse: 81 Weight: 65.8 kg (145 lb) Height: 5' 6 (1.676 m) Diagnoses/Impression: 1. Cholelithiasis Gallbladder wall calcification. Recommendations and Plan: Nature of gallstone disease, natural course of gallstone disease, nature of gallbladder wall calcification, nature of laparoscopic cholecystectomy versus open, indication, benefits, alternatives, risks, complications, preop instructions, postoperative course, discussed with patient in details. Patient would be benefited from laparoscopic cholecystectomy, possible open. Appropriate literature provided. Patient verbalized understanding nature of discussion accept the risk factors and would like to proceed with surgery as recommended. Patient will decide about date of surgery. We will do before procedure EKG, chest x-ray, CBC, common metabolic profile. Date of surgery: HERMES ALBERTO Referring Provider: Sabas Lomeli PCP: SABAS LOMELI MD documented in this encounter Plan of Treatment Not on file documented as of this encounter Visit Diagnoses Diagnosis Cholelithiasis- Primary Calculus of gallbladder without mention of cholecystitis or obstruction documented in this encounter Care Teams Cyber Forensic Specialist Relationship Specialty Start Date End Date Sabas Lomeli MD [address] [place] [phone] PCP - General FAMILY PRACTICE 03/31/19 Yolanda Huston APRN, SUPERVISOR ORE DRESSING-C [address] [place] [phone] CARDIOVASCULAR DISEASE 03/31/19 documented as of this encounter
--- OUTSIDE RECORDS SUMMARY | 2024-10-18 01:31 | XMS_ITS | Encounter Summary ---
Author Organization [facility] Address [address] [place] [address]. [place] [address] [place] [address] Care Team Providers Care Icebox Worker Name Role Phone Sabas Kamara MD Primary Care Provider [phone] Yolanda Huston APRN, TEXTILE KNITTER-C Unavailable [phone] Encounter Details Date Type Department Care Team (Late st Contact Info) Description 04/01/2019 1:42 PM CDT - 04/01/2019 1:55 PM CDT Hospital Encounter [facility] [address] [place], [place] [address] Yolanda Huston APRN, TEXTILE KNITTER-C [address] [place], [place] [phone] Discharge Disposition: Home or Self Care (Routine Discharge) Social History Tobacco Use Types Packs/Day Years [...] on file documented as of this encounter Medications at Time of Discharge buPROPion XL 150 MG 24 hr tabletIndications :mood Take 150 mg by mouth 3 (three) times a day. calcium citrate-vitamin D 315 MG-250 UNIT 315-250 MG-UNIT Tab tabletIndications :supplement Take 1 tablet by mouth 2 (two) times daily as needed. estradiol 1 MG tabletIndications :hormone Take 1 mg by mouth nightly at bedtime. Multiple Vitamins-Minerals (MULTIVITAMIN ADULT OR)Indications:steele pplement Take 1 tablet by mouth daily. oxybutynin XL 10 MG 24 hr tabletIndications :bladder Take 10 mg by mouth daily. ropinirole 1 MG tabletIndications :restless legs Take 1 mg by mouth nightly at bedtime. documented as of this encounter Plan of Treatment Not on file documented as of this encounter Procedures Procedure Name Priority Date/Time Associated Diagnosis Comments PRO-BRAIN NATRIURETIC PEPTIDE Routine 04/01/2019 1:52 PM CDT Shortness of breath BASIC METABOLIC PANEL Routine 04/01/2019 1:52 PM CDT Shortness of breath TROPONIN, QUANT Routine 04/01/2019 1:52 PM CDT Shortness of breath Chest pain, unspecified type documented in this encounter Results * PRO-BRAIN NATRIURETIC PEPTIDE (PRO BNP) (04/01/2019 1:52 PM CDT) PRO-B TYPE NATRIURETIC PEPTIDE 53 <125 PG/ML 04/01/2019 2:32 PM CDT [facility] Comment: AGE INDEPENDENT: <300 PG/ML HAS A 99% NEGATIVE PREDICTIVE VALUE FOR EXCLUDING ACUTE CHF <50 YEARS: >450 PG/ML IS CONSISTENT WITH ACUTE CHF 50-75 YEARS: >900 PG/ML IS CONSISTENT WITH ACUTE CHF >75 YEARS: >1800 PG/ML IS CONSISTENT WITH ACUTE CHF IN PATIENTS WITH RENAL INSUFFICIENCY (GFR <60), >1200 PG/ML YIELDS A DIAGNOSTIC SENSITIVITY AND SPECIFICITY OF 89% AND 72% FOR ACUTE CHF. 04/01/2019 1:52 PM CDT Yolanda Huston APRN TEXTILE KNITTERCecyC LABORATORY Final Result [facility] [address] [place] [address], [id number] * TROPONIN, QUANT (04/01/2019 1:52 PM CDT) Pathologist [facility] TROPONIN I <0.015 <0.045 ng/mL. 04/01/2019 2:32 PM CDT [facility] 04/01/2019 1:52 PM CDT Yolanda Huston APRN, TEXTILE KNITTER-C LABORATORY Final Result [facility] [address] [place] [address], [id number] * (ABNORMAL) BASIC METABOLIC PANEL (04/01/2019 1:52 PM CDT) [facility] SODIUM S/P/B 136 136 - 145 MMOL/L 04/01/2019 2:32 PM CDT [facility] POTASSIUM S/P/B 3.8 3.5 - 5.1 MMOL/L 04/01/2019 2:32 PM CDT [facility] CHLORIDE S/P/B 103 98 - 107 MMOL/L 04/01/2019 2:32 PM CDT [facility] CO2 28.6 21.0 - 32.0 MMOL/L 04/01/2019 2:32 PM CDT [facility] GLUCOSE 133(H) 74 - 106 MG/DL 04/01/2019 2:32 PM CDT [facility] BUN 14 7 - 18 MG/DL 04/01/2019 2:32 PM CDT [facility] CREATININE S/P/B 0.85 0.55 - 1.02 MG/DL 04/01/2019 2:32 PM CDT [facility] CALCIUM S/P/B 9.0 8.5 - 10.1 MG/DL 04/01/2019 2:32 PM CDT [facility] ANION GAP 4.4(L) 5.0 - 15.0 MMOL/L 04/01/2019 2:32 PM CDT [facility] Comment:REFERENCE RANGE NOT ESTABLISHED OSMOLALITY (CALC) 284 MOSM/KG 04/01/2019 2:32 PM CDT [facility] Comment:REFERENCE RANGE NOT ESTABLISHED EGFR NON-AFR. AMER. 77(L) >90 ML/MIN/1 .73 M2 04/01/2019 2:32 PM CDT [facility] EGFR AFR. AMER. 89(L) >90 ML/MIN/1 .73 M2 04/01/2019 2:32 PM CDT [facility] GFR NOTES THE ESTIMATED GFR IS CALCULATED USING THE 2009 CKD-EPI EQUATION. THE FOLLOWING CATEGORIES FOR GRADING RENAL FUNCTION ARE RECOMMENDED BY THE INTERNATIONAL SOCIETY OF NEPHROLOGY (KDIGO 2012 CLINICAL PRACTICE GUIDELINE). 04/01/2019 2:32 PM CDT [facility] Comment: G1,NORMAL OR HIGH: >89 ml/min/1.73 m2 G2,MILDLY DECREASED: 60-89 ml/min/1.73 m2 G3A,MILDLY TO MODERATELY DECREASED: 45-59 ml/min/1.73 m2 G3B,MODERATELY TO SEVERELY DECREASED: 30-44 ml/min/1.73 m2 G4,SEVERELY DECREASED: 15-29 ml/min/1.73 m2 G5,KIDNEY FAILURE: <15 ml/min/1.73 m2 04/01/2019 1:52 PM CDT YENNIFER Alarcon APRN LABORATORY Final Result Performing Organization Address City/State/[facility] Co de Phone Number [facility] [address] [place] [address], [id number] documented in this encounter Visit Diagnoses Diagnosis Shortness of breath Chest pain, unspecified type documented in this encounter Care Teams Icebox Worker Relationship Specialty Start Date End Date Sabas Kamara MD [address] [place] [phone] PCP - General FAMILY PRACTICE 03/31/19 Yolanda Huston APRN, TEXTILE KNITTER-C [address] [place], [place] [phone] CARDIOVASCULAR DISEASE 03/31/19 documented as of this encounter
--- OUTSIDE RECORDS SUMMARY | 2024-10-18 01:31 | XMS_ITS | Encounter Summary ---
Author Organization [facility] Address [address] [place] [address]. [place] [address] [place] [address] Care Team Providers Care Coal Washer Name Role Phone Sabas Kamara MD Primary Care Provider [phone] Yolanda Huston APRN ELECTRIC POWER LINE REPAIRER-C Unavailable [phone] Encounter Details Date Type Department Care Team (Late st Contact Info) Description 07/01/2019 Orders Only [facility] [address] [place], [place] [address] Neel Vera MD [address] [place] [address] [address] [address] [place], [place] [address] Social History Tobacco Use Types Packs/Day Years [...] as of this encounter Visit Diagnoses Diagnosis Intra-abdominal and pelvic swelling, mass and lump, unspecified site documented in this encounter Care Teams Coal Washer Relationship Specialty Start Date End Date Sabas Kamara MD [address] [place] [address] PCP - General FAMILY PRACTICE 03/31/19 Yolanda Huston APRN, ELECTRIC POWER LINE REPAIRER-C [address] [place] [phone] CARDIOVASCULAR DISEASE 03/31/19 documented as of this encounter
--- OUTSIDE RECORDS SUMMARY | 2024-10-18 01:31 | XMS_ITS | Encounter Summary ---
Author Organization [facility] Address [address] [place] [address]. [place] [address] [place] [address] Care Team Providers Care Resilient Tile Installer Name Role Phone Sabas Kamara MD Primary Care Provider [phone] Yolanda Huston APRN BOWLING BALL MOLDER-C Unavailable [phone] Reason for Visit * Reason Onset Date Comments Results 04/14/2019 CTA Chest Encounter Details Date Type Department Care Team (Late st Contact Info) Description 04/14/2019 Telephone [facility] [address] [place] [address] Jordan Armando MD [address] [facility] [address] [place] [address] Results (CTA Chest) Social History Tobacco Use Types Packs/Day Years [...] as of this encounter Progress Notes * Stefanie [place], MIHAI - 04/14/2019 11:18 AM CDT Pt notified by Dr Armando of CTA results. I phoned Dr Kamara's office and spoke to nurse Kendall regarding the results - Dr Kamara will see pt in office and then he will refer on to pulmonary. Pt already has appt with him on 04/20 but have pt to call to move up appt. Pt vu and CTA report faxed to PCP. documented in this encounter Plan of Treatment Not on file documented as of this encounter Visit Diagnoses Not on filedocumented in this encounter Care Teams Resilient Tile Installer Relationship Specialty Start Date End Date Sabas Kamara MD [address] [place] [phone] PCP - General FAMILY PRACTICE 03/31/19 Yolanda Huston APRN, BOWLING BALL MOLDER-C [address] [place] [phone] CARDIOVASCULAR DISEASE 03/31/19 documented as of this encounter
--- OUTSIDE RECORDS SUMMARY | 2024-10-18 01:31 | XMS_ITS | Encounter Summary ---
Author Organization [facility] Address [address] [place] [address]. [place], [place] [id number] [place] [id number] Care Team Providers Care Transformation Analyst Name Role Phone Sabas Kamara MD Primary Care Provider [phone] Yolanda Huston APRN, ASSISTED LIVING NURSING DIRECTOR-C Unavailable [phone] Encounter Details Date Type Department Care Team (Latest Contact Info) Description 04/14/2019 Scan HEALTH INFO SRVCS Scanned, Documents Social History Tobacco Use Types Packs/Day Years [...] on filedocumented in this encounter Care Teams Transformation Analyst Relationship Specialty Start Date End Date Sabas Kamara MD [address] [place] [phone] PCP - General FAMILY PRACTICE 03/31/19 Yolanda Huston APRN, ASSISTED LIVING NURSING DIRECTOR-C [address] [place] [phone] CARDIOVASCULAR DISEASE 03/31/19 documented as of this encounter
--- OUTSIDE RECORDS SUMMARY | 2024-10-18 01:31 | XMS_ITS | Encounter Summary ---
Author Organization [facility] Address [facility] [facility] [place], [place] [id number] [place] [address] Care Team Providers Care Supervisory Clerk Name Role Phone Sabas Kamara MD Primary Care Provider [phone] Yolanda Lehman APRN, NP-C Unavailable [phone] Reason for Referral * Imaging (Routine) - Closed Specialty Diagnoses / Procedures Referred By Ayala killian Referred To Contact CARDIOLOGY Diagnoses Shortness of breath Other chest pain Procedures Stress Test only, exercise (SJS only) Yolanda Lehman APRN AGRICULTURAL COMMODITIES INSPECTOR-Bhupendra [address] [place] [phone] Phone: tel: fax: [address] [phone] Phone: tel: fax: Referral ID Status Reason Start Date Expiration Date Visits Re quested Visits Authorized [id number] Closed 04/01/2019 05/01/2020 1 1 Reason for Visit * Imaging (Routine) - Closed Specialty Diagnoses / Procedures Referred By Ayala killian Referred To Contact CARDIOLOGY Diagnoses Shortness of breath Other chest pain Procedures Stress Test only, exercise (SJS only) Yolanda Lehman APRN, NP-C [address] [place] [address] Phone: tel: fax: [address] [place] [address] Phone: tel: fax: Referral ID Status Reason Start Date Expiration Date Visits Re quested Visits Authorized [id number] Closed 04/01/2019 05/01/2020 1 1 Encounter Details Date Type Department Care Team (Late st Contact Info) Description 04/01/2019 1:56 PM CDT - 04/01/2019 11:59 PM CDT Hospital Encounter [facility] [address] [place] [address] Yolanda Lehman APRN, AGRICULTURAL COMMODITIES INSPECTOR-C [address] [place] [address] Discharge Disposition: Home or Self Care (Routine [...] Procedure Name Priority Date/Time Associated Diagnosis Comments CARDIOLOGY STRESS TEST ONLY, EXERCISE Routine 04/01/2019 2:16 PM CDT Shortness of breath Other chest pain documented in this encounter Results * Stress Test only, exercise (SJS only) (04/01/2019 2:16 PM CDT) 04/01/2019 2:16 PM CDT Narrative [facility] - 04/04/2019 7:34 AM CDT ? [facility] ?[address], [place] ??[address] ? Test Date: ?2019-04-01 Pat Name: ? ASHU SHETH ?Department: ? Room: ? Gender: ? Female ? Manager Wound: ?? KEVEN/JARVIS BURKS: ?1965 ? Requested By: YOLANDA LEHMAN Order Number: [id number] ? Reading MD: ?? Henrry Gómez ? Interpretive Statements See Nurse interpretation IMP: 1. Maximal exercise stress test demonstrating good exercise tolerance with a somewhat accelerated heart rate response to exercise. ? 2. Chest pain was present at baseline and worsened somewhat with exercise. ? 3. No electrocardiographic evidence of exercise-induced myocardial ischemia was noted. Procedure Note Henrry Gómez MD - 04/04/2019 [facility] [address] [place] [address] Test Date: 2019-04-01 Pat Name: ASHU SHETH Department: Room: Gender: Female Manager Wound: MIKE : 1965 Requested By: YOLADNA LEHMAN Order Number: [id number] Rehana MD: Henrry Gómez Interpretive Statements See Nurse interpretation IMP: 1. Maximal exercise stress test demonstrating good exercisetolerance with a somewhat accelerated heart rate response to exercise. 2. Chest pain was present at baseline and worsened somewhat with exercise. 3. No electrocardiographic evidence of exercise-induced myocardial ischemia was noted. YENNIFER Alarcon APRN CV CARDIAC SERVICES OR DERABLES Final Result [facility] documented in this encounter Visit Diagnoses Diagnosis Shortness of breath Other chest pain documented in this encounter Care Teams Supervisory Clerk Relationship Specialty Start Date End Date Sabas Kamara MD [address] [place] [phone] PCP - General FAMILY PRACTICE 03/31/19 Yolanda Lehman APRN, NP-C [address] [place] [phone] CARDIOVASCULAR DISEASE 03/31/19 documented as of this encounter
--- OUTSIDE RECORDS SUMMARY | 2024-10-18 01:31 | XMS_ITS | Encounter Summary ---
Author Organization [facility] Address [address] [place] [address]. [place] [address] [place] [address] Care Team Providers Care Parts Casting Machine Operator Name Role Phone Sabas Kamara MD Primary Care Provider [phone] Yolanda Huston APRN THRILL PERFORMER-C Unavailable [phone] Reason for Visit * Auth/Cert Specialty Diagnoses [...] Expiration Date Visits Re quested Visits Authorized [id number] 1 1 Encounter Details Date Type Department Care Team (Latest Contact Info) Description 05/19/2019 11:05 AM CDT - 05/19/2019 6:42 PM CDT Hospital Encounter [facility] [address] [place] [address] Neel Vera MD [address] [place] [address] [place] [address] [phone] Discharge Disposition: Home or Self Care (Routine [...] on file documented as of this encounter Last Filed Vital Signs Vital Sign Reading Time Taken Comments Blood Pressure 134/82 05/19/2019 5:12 PM CDT Pulse 76 05/19/2019 5:12 PM CDT Temperature 36 ??C (96.8 ??F) 05/19/2019 3:38 PM CDT Respiratory Rate 18 05/19/2019 5:12 PM CDT Oxygen Saturation 99% 05/19/2019 5:12 PM CDT Inhaled Oxygen Concentration - - Weight 65.8 kg (145 lb) 05/16/2019 10:59 AM CDT Height 167.6 cm (5' 6 ) 05/16/2019 10:59 AM CDT Body Mass Index 23.4 05/16/2019 10:59 AM CDT documented in this encounter Discharge Instructions * Discharge Instructions* Den Shafer RN - 05/19/2019 5:19 PM CDT Adult Anesthesia Discharge Please note the following to assist in your care following sedation: The effects of medication may last 24 hours. You SHOULD NOT: *drive a vehicle or operate hazardarous machinery *drink any alcoholic beverages *sign any legal documents or make important decisions *take medication that causes drowsiness (sleeping pills or tranquilizers) *Avoid strenuous activity. *Return home accompanied by a responsible person. Someone should stay with you for the remainder ofthe day (6-8 hours) as you may be slightly dizzy or forgetful. *You may experience tenderness and/or redness of the IV site due to medication used in sedation. Ifthis persists more than 24hours, notify your physician. NORCO LAST GIVEN AT 405PM, MAY TAKE AGAIN AT 805PM TORADOL LAST GIVEN AT 305 PM MAY TAKE IBUPROFEN AGAIN AT 905 PM * Attachments The following attachments cannot be sent through Care Everywhere. * Laparoscopy (Vincentian) * Docusate, ADULT (Vincentian) * Hydrocodone and Acetaminophen, ADULT (Vincentian) * Ibuprofen, ADULT (Vincentian) documented in this encounter Medications at Time of Discharge [...] 1 mg by mouth nightly at bedtime. docusate sodium 100 MG capsule Take 1 capsule (100 mg total) by mouth 2 (two) times daily. 30 capsule 05/19/2019 05/02/2020 hydrocodone-aceta minophen (NORCO) 5-325 MG tablet Take 1 tablet by mouth every 6 (six) hours as needed for Pain. 15 tablet 05/19/2019 05/02/2020 ibuprofen 600 MG tablet Take 1 tablet (600 mg total) by mouth every 6 (six) hours as needed for Pain. 30 tablet 05/19/2019 05/29/2019 lorazepam 0.5 MG tabletIndications :Anxiety Take 0.5 mg by mouth 2 (two) times a day. 05/02/2020 documented as of this encounter OR Notes * Brief Op Note - Neel Vera MD - 05/19/2019 3:28 PM CDT LOG CHIPPER OPERATOR Brief Op Note Patient Name: Ashu Sheth Date of : 1965 Admission Date: 05/19/2019 Preop Diagnosis: Complex cystic left pelvic mass, pulmonary nodules Postop Diagnosis: 1. Left hydrosalpinx on frozen pathology 2. 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 Left ureteral fibrosis (from scarring). Complications: None Specimens: Left pelvic mass, right infundibulopelvic ligament remnant DEN LEVY MD 05/19/2019 SCOTTY DATA PROCESSING AUDITOR ONC Attending Attestation SCOTTY LOG CHIPPER OPERATOR resident note reviewed and findings verified. I was present and scrubbed for the entire procedure listed in the resident's note. See dictated operative note. * Op Note - Neel Vera MD - 05/19/2019 12:00 AM CDT SURGEON: Neel Vera MD, Ph.D. FILAMENT TESTER: Den Levy MD (PGY3) PREOPERATIVE DIAGNOSES: 1. Symptomatic left complex pelvic mass. 2. Pulmonary nodules. OPERATION PERFORMED: 1. Robotic assisted laparoscopic excision of pelvic mass/ovarian remnant. 2. Left ureterolysis. POSTOPERATIVE DIAGNOSES: 1. Benign left pelvic mass, likely dilated fallopian tube and ovarian remnant, awaiting final pathology. 2. Left pelvic adhesions. 3. 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 ANESTHESIA: General endotracheal. INTRAVENOUS FLUIDS: 1700 mL of lactated ringer. URINE OUTPUT: 150 mL ESTIMATED BLOOD LOSS: 10 mL SPECIMENS: Left pelvic mass, portion of the right infundibulopelvic ligament remnant. COMPLICATIONS: None. INDICATIONS FOR PROCEDURE: The patient is a 53-year-old 3, para 3 with a recently diagnosedsymptomatic complex left pelvic mass on imaging performed on 04/20/2019, and multiple pulmonary nodules (imaging performed on 04/13/2019). The patient initially presented to her PCP on 03/31/2019 with chest pain/epigastric pain. The patient was treated conservatively with a plan to refer the patient to cardiology. On 04/13/2019, the patient underwent a CT angio of the chest secondary to shortnessof breath with elevated D-dimer. This imaging revealed numerous scattered pulmonary nodules, appearance most consistent with metastatic disease. No pulmonary emboli were noted. The patient was seen in followup by her PCP on 04/14/2019 and given these findings, recommendation was for further imagingin the form of CT scan of the abdomen and pelvis and referral to GI medicine for colonoscopy. On 04/18/2019, the patient underwent a diagnostic colonoscopy. This revealed multiple polyps that were resected. Final pathology revealed a tubular cystadenoma and hyperplastic polyp. On 04/20/2019, the patient underwent a CT scan of the abdomen and pelvis. This revealed a complex septated cystic mass inleft adnexa measuring 7.7 x 3.9 cm and multiple small right lower lobe pulmonary nodules. There wasno mention of lymphadenopathy. The patient's CA-125 was normal. The patient was referred to our office for evaluation and treatment planning of these findings. The patient was seen in our office on 05/11/2019 and at that visit, given all findings, we recommended surgical excision of the patient's pelvic mass. Specifically, we recommended a robotic-assisted laparoscopic excision of this left pelvic mass and possible cystoscopy. If malignancy was discovered, the patient will undergo full staging procedure. We reviewed the risks, benefits, and alternatives and complications of surgery and informed consent was obtained in the office. The patient also agreed to participate in our biomarker study(Biomarkers for Endometrial and Ovarian Cancer, IRB# [id number]) and informed consent was obtained separately for this study. Please refer to office note for further details. On 05/17/2019, the patient underwent an image guided biopsy of lung nodules. Final pathology revealed benign findings. The patient was then seen on the day of surgery in the preoperative area where we performed a history and physical interval update and reviewed our surgical plan with the patient. The patient agreed to proceed.Please refer to hospital notes for further details. FINDINGS: Examination under anesthesia revealed grossly normal-appearing external genitalia. The vagina had an anterior and posterior vaginal wall defects (pelvic organ prolapse). The cervix was surgically absent. There were no vaginal lesions noted. Bimanual examination revealed a palpable mass inthe left adnexa without nodularity. Laparoscopic findings revealed a grossly normal- appearing upperabdomen. Liver and gastric surfaces appeared smooth. The spleen was not visualized. The small intestines appeared grossly normal. There were no visible lesions. The mesentery also appeared normal. The omentum was adhered to the right pelvic sidewall, but appeared grossly normal otherwise. In the pelvis, the right ovary and tube were surgically absent. There was a long residual right infundibulopelvic ligament remnant. On the left, there was an approximately 8 cm mass that was densely adhered tothe vaginal cuff and the left pelvic sidewall. This mass appeared cystic with a minimal complexity and contained clear fluid. There was scarring in the left retroperitoneal spaces, which involved theleft ureter, which itself was densely adhered to the mass and also encased in fibrosis secondary toscarring. A frozen section of the left pelvic mass revealed a dilated fallopian tube. Clinically, we also felt that this represented a left ovarian remnant. Given that there was no evidence of malignancy, staging was not performed. DESCRIPTION OF PROCEDURE: The patient was taken to the operating room where she was given general anesthesia and intubated. The anesthesia team placed an orogastric tube. The patient was placed in dorsal lithotomy position and a surgical timeout was performed, detailing planned procedures. Vaginal and rectal swabs were obtained per research protocol. The patient was prepped and draped in usual sterile fashion. A Sampson catheter was inserted into the bladder cavity without difficulty and urine was collected per research protocol. An examination under anesthesia was performed and the findings are noted above. We turned our attention to the upper abdomen where a 12 mm skin incision was created in left upper quadrant in transverse fashion with electrocautery following infiltration of subcutaneous tissues with 0.25% Marcaine and Epinephrine (5 mL). A Veress needle was introduced into the abdomen under posit kristin pressure of CO2 gas and the abdomen was insufflated to a pressure of 15 mmHg. The Veress needlewas removed. Next, a 12 mm trocar and sleeve were advanced into the abdomen under laparoscopic guidance. The trocar was removed and the AirSeal port was connected to the AirSeal device, allowing continuous flow of CO2 gas into the abdomen to a pressure of 15 mmHg. The patient was placed in steep Trendelenburg position (30 degrees). Next, an 8 mm da Anne Marie port was placed approximately 4 cm above the umbilicus in the midline. This port was placed under laparoscopic guidance after an incision was created at the appropriate site with electrocautery following infiltration of subcutaneous tissues with 0.25% Marcaine and Epinephrine (5 mL). We then placed two right- sided ports. The first was placed approximately 10 cm lateral to the midline port and the second was placed approximately 20 cm lateral and 4 cm inferior to the midline port. Again, these ports were placed under laparoscopic guidance after incisions were created at the appropriate sites with electrocautery following infiltration of subcutaneous tissues with 5 mL of 0.25% Marcaine and Epinephrine at each site. Finally, we placed a left-sided port approximately 15 cm lateral to the midline/camera port after an incision was created at the appropriate site with electrocautery following infiltration of subcutaneous tissues with 0.25% Marcaine and Epinephrine at this site (5 mL). With all ports in place, the robot was docked to these ports with the exception of the AirSeal portfrom the patient's right side. Instruments were placed in the robotic arms. In robotic arm #1 were placed the bipolar forceps. In robotic arm #2 was placed the 8 mm da Anne Marie camera. In robotic arm #3were placed the EndoShears and finally in robotic arm #4 were placed ProGrasp graspers. We then performed a limited enterolysis freeing the omentum from the anterior abdominal wall, allowing better visualization of the pelvis. At this point, pelvic washings were collected per research protocol and the remaining portion held. Ultimately, we discovered a benign mass and the help portionof the pelvic washings were discarded. We then turned our attention to the left pelvis where the remnant of the left round ligament was identified, elevated, and divided sharply with EndoShears, allowing entry into the left pelvic retroperitoneal spaces, which we noted were scarred. Nevertheless, using sharp dissection, we were able to open these spaces. The left ureter was identified as it entered the pelvis at the pelvic brim and a short distance into the pelvis it was found to be encased in fibrosis and densely adhered to the left pelvic mass. We were able to identify the left infundibulopelvic ligament and a window between this ligament and the left ureter was created in a sharp fashionabove the pelvic brim. The left infundibulopelvic ligament was then clamped, cauterized, and divided for excellent hemostasis. We then continued our dissection into the pelvis for a short distance. At this point, in order to free the mass from its attachments, it was necessary to perform a left ureterolysis. The left ureter was freed from its fibrosis and adhesions and to the mass in a sharp fashion with the EndoShears proceeding from the pelvic brim to below the uterine artery remnants. Medially, the mass was densely adhered to the rectosigmoid colon mesentery and epiploica. These adhesions were lysed sharply with the EndoShears. Finally, the remaining adhesions of the mass to the vaginal cuff were lysed with the EndoShears. This afforded the left mass, which was placed in an EndoCatch bag and delivered via the certified physician's assistant port. It was sent to pathology for frozen section and revealed a benign dilated tube. Again, clinically, we felt that this mass also included a portion of theovary (ovarian remnant). We turned our attention to the right pelvis where the right infundibulopelvic ligament remnant was present. We entered the right retroperitoneal spaces sharply with the EndoShears, and we were able to identify the right ureter as it entered the pelvis at the pelvic brim. We then created a window between the right ureter and the right infundibulopelvic ligament remnant. The right infundibulopelvicligament was clamped, cauterized, and divided at the pelvic brim. The remaining attachments of the remnant were divided with the EndoShears. This afforded a portion of the right infundibulopelvic ligament remnant, which was removed from the operative field via the certified physician's assistant port and sent to patholog y for permanent section. Given that we had not found to have malignancy, there was no indication for staging. The abdomen and pelvis were copiously irrigated with warm normal saline and all sites of dissectionwere carefully inspected and found to be hemostatic, including both infundibulopelvic ligament pedicles. The left ureter appeared intact and injury free. It was peristalsing. The right ureter also appeared normal. We then examined the small and large intestines, which appeared injury free. The patient's appendix was visualized and also appeared normal. The patient was returned to dorsal lithotomy position. The AirSeal port was removed and the fascia at this site was repaired with 0-Vicryl in a [id number] fashion endoscopically. Next, all instruments were removed from the abdomen. All remaining ports were removed under laparoscopic guidance and CO2 gas was allowed to escape the abdomen. All remaining skin incisions were closed with 4-0 Monocryl in subcuticular fashion and Dermabond was applied to the skin surface. The patient's Sampson catheter was removed and this concluded the patient's surgery. The patient tolerated the procedure well. Sponge, lap, and instrument counts were correct x2. All sponges were accounted for. The patient was taken to recovery room in good condition. The patient received antibiotics for infection prophylaxis. She was wearing PAS boots for DVT prophylaxis. The resident (Dr. Levy) assisted in this procedure, but I performed all ruff portions and was present during the entire surgery. #[id number] /NTS documented in this encounter Plan of Treatment Not on file documented as of this encounter Procedures Procedure Name Priority Date/Time Associated Diagnosis Comments PATHOLOGY Routine 05/19/2019 2:54 PM CDT ROBOTIC XI HYSTERECTOMY 05/19/2019 12:22 PM CDT PELVIC MASS Case Notes PATIENT IS ENROLLED IN RESEARCH STUDY- ORDERS FOR LABS RECEIVED -A RESEARCH COORDINATOR WILL ESCORT PATIENT TO LAB FOR SPECIMEN COLLECTION TYPE & SCREEN Routine 05/19/2019 12:21 PM CDT documented in this encounter Results * Pathology (05/19/2019 2:54 PM CDT) PATHOLOGY [facility] ? Department of Laboratory Medicine ?[address] ?[place] [address] ? , extension [phone] ? Pathology Report ? Surgical Pathology Report Name: ASHU SHETH ?Specimen #: [id number] Age: 12 1965 (Age: 53) ? Location: [facility] Sex: F ?Procedure Date: 05/19/2019 Hospital #: [id number] ?Date Received: 05/19/2019 Date Reported: 05/23/2019 Provider: NEEL VERA ?DEN LEVY Source: A: Left pelvic mass B: Right infundibulopelvic remnant Clinical History: Patient has a history of bilateral salpingo-oophorectomy in 2008 with a diagnosis of mucinous cystadenoma. Gross Description: A) Received fresh, labeled with a patient label and as pelvic mass is a dilated tubular structure, 8 cm in length and ranging up to 3.5 cm in diameter. There is a small amount of soft yellow tissue attached to the surface of this structure. ??Sections reveal that this structure is cystically dilated. ??The hernandez are thin and delicate with an average thickness of 0.1 cm. ??No excrescences or solid areas are identified. ??Costumed Character tissue is submitted for frozen section analysis and subsequent permanent sections as 1. ??Additional client services representative tissue is submitted in cassette A2. B) Received in formalin, labeled with a patient label and as right infundibulopelvic remnant is a 2.1 x 1.4 x 1.0 cm piece of soft tissue with an erythematous surface. ??Sections reveal multiple vessels. ??No mass lesions are identified. ??Costumed Character tissue is submitted in cassette B1. Intraoperative Diagnosis: FROZEN SECTION DIAGNOSIS FSA1) LEFT PELVIC MASS, EXCISION: ? - DILATED FALLOPIAN TUBE REMNANT/HYDROSALPINX (John Piedra M.D.). FINAL DIAGNOSIS: A) LEFT PELVIC MASS, EXCISION: ? - DILATED FALLOPIAN TUBE REMNANT (HYDROSALPINX). B) RIGHT INFUNDIBULOPELVIC REMNANT, EXCISION: ? - UNREMARKABLE VASCULAR TISSUE. Electronically Signed Out ? John Piedra M.D. [facility] Tissue specimen (specimen) (OTHER (type in comments)) 05/19/2019 2:48 PM CDT us Neel Vera MD PATHOLOGY/CYTOLOGY ORDERABLES F inal Result Performing Organization Address [facility] de Phone Number [facility] [address] [place] [address], [phone] * TYPE & SCREEN (05/19/2019 12:21 PM CDT) ABO/RH A POSITIVE 05/19/2019 1:45 PM CDT [facility] ANTIBODY SCREEN NEGATIVE 9 1:45 PM CDT [facility] SAMPLE EXPIRATION 05/22/2019 05/19/2019 12:56 PM CDT [facility] 05/19/2019 12:2 1 PM CDT us Neel Vera MD BLOOD BANK TEST ORDERABLES Cherelle l Result Performing Organization Address [facility] de Phone Number [facility] [address] [place] [address], [phone] documented in this encounter Visit Diagnoses Not on filedocumented in this encounter Administered Medications Inactive Administered Medications - up to 3 most recent administrations Medication Order MAR Action Action Date Dose Rate Site chlorhexidine (PERIDEX) 0.12 % solution 15 mL 15 mL, Mouth/Throat, Once, 1 dose, On Renea 05/19/19 at 1230, Patient to perform oral care first. Swish/gargle in mouth for 30 seconds, and then discard prior to going to surgery. If ventilated use saturated swab to clean oral cavity., Pre-Op Given 05/19/2019 12:42 PM CDT 15 mLs hydrocodone-acetaminophen (NORCO) 5-325 MG tablet 1 tablet 1 tablet, Oral, Once, 1 dose, On Renea 05/19/19 at 1630, Maximum dose of acetaminophen is 4000 mg from all sources in 24 hours., PACU Given 05/19/2019 4:05 PM CDT 1 tablet lactated ringers infusion at 10 mL/hr, Intravenous, Continuous, Starting on Renea 05/19/19 at 1230, Until Renea 05/19/19 at 2042, Pre-Op New Bag 05/19/2019 3:10 PM CDT New Bag 05/19/2019 12:42 PM CDT 10 mL/hr documented in this encounter Active and Recently Administered Medications Times are shown in CDT. Scheduled Medication Order 05/17/2019 05/18/2019 05/19/2019 chlorhexidine (PERIDEX) 0.12 % solution 15 mL (COMPLETED) 15 mL, Mouth/Throat, Once, 1 dose, On Renea 05/19/19 at 1230, Patient to perform oral care first. Swish/gargle in mouth for 30 seconds, and then discard prior to going to surgery. If ventilated use saturated swab to clean oral cavity., Pre-Op 1242 (Given - Provid er: Carmen Ron RN) clindamycin (CLEOCIN) IVPB 900 mg (COMPLETED) 900 mg, Intravenous, at 100 mL/hr, call center operations manager, 1 dose, On Renea 05/19/19 at 1230, Pre-Op 1310 (Given - Provid er: Sumit Brown CRNA) hydrocodone-acetaminophen (NORCO) 5-325 MG tablet 1 tablet (COMPLETED) 1 tablet, Oral, Once, 1 dose, On Renea 19 at 1630, Maximum dose of acetaminophen is 4000 mg from all sources in 24 hours., PACU 1605 (Given - Provid er: Fadia Belle RN) levofloxacin (LEVAQUIN) IVPB 500 mg (COMPLETED) 500 mg, Intravenous, at 100 mL/hr, call center operations manager, 1 dose, On Renea 05/19/19 at 1230, Pre-Op 1325 (Given - Provid er: Sumit Brown CRNA)1425 (Infusion Stop Time - Provider: Karrie Benavidez CRNA) Continuous Medication Order 05/17/2019 05/18/2019 05/19/2019 lactated ringers infusion at 10 mL/hr, Intravenous, Continuous, Starting on Renea 05/19/19 at 1230, Until Renea 05/19/19 at 2042, Pre-Op 1242 (New Bag - Prov ider: Carmen Ron, MIHAI)1510 (New Bag - Provider: Sumit Brown CRNA)1537 (Infusion Stop Time - Provider: Sumit Brown CRNA)1832 (Infusion Stop Time - Provider: Den Shafer, MIHAI) PRN Medication Order 05/17/2019 05/18/2019 05/19/2019 BUpivacaine-EPINEPHrine 0.25% -[id number] injection (CANCELED) As needed, Starting on Renea 05/19/19 at 1345, Until Renea 05/19/19 at 1548, Intra-Op 1345 (Given - Provid er: Neel Vera MD) documented in this encounter Care Teams Parts Casting Machine Operator Relationship Specialty Start Date End Date Sabas Kamara MD [address] [place] [phone] PCP - General FAMILY PRACTICE 03/31/19 Yolanda Huston APRN, THRILL PERFORMER-C [address] [place] [phone] CARDIOVASCULAR DISEASE 03/31/19 documented as of this encounter
--- OUTSIDE RECORDS SUMMARY | 2024-10-18 01:31 | XMS_ITS | Encounter Summary ---
Author Organization [facility] Address [address] [place] [address]. [place] [address] [place] [address] Care Team Providers Care Ceramic Products Sales Engineer Name Role Phone Sabas Lomeli MD Primary Care Provider [phone] Yolanda Huston APRN [facility] MAGISTRATE-C Unavailable [phone] Reason for Visit * Reason Comments Consult * Consultation/Treatment (Routine) - Closed Specialty Diagnoses / Procedures Referred By Contac t Referred To Contact INTERNAL MEDICINE HEMATOLOGY & ONCOLOGY / [facility] Medical Oncology Diagnoses new patient lung nodules Procedures [place] PATIENT CONSULT Sabas Lomeli MD [address] [place] [phone] Phone: tel: fax: Justine Mandujano MD [address] [place] [address] Phone: tel: fax: Referral ID Status Reason Start Date Expiration Date Visits Re quested Visits Authorized [id number] Closed 05/04/2019 05/04/2020 1 1 Encounter Details Date Type Department Care Team (Late st Contact Info) Description 05/11/2019 3:00 PM CDT Initial Consult [address] [place] [address] Justine Mandujano MD [address] [place] [address] Consult Social History Tobacco Use Types Packs/Day Years [...] Sign Reading Time Taken Comments Blood Pressure 130/85 05/11/2019 3:36 PM CDT Pulse 94 05/11/2019 3:36 PM CDT Temperature 36.7 ??C (98.1 ??F) 05/11/2019 3:36 PM CD T Respiratory Rate 18 05/11/2019 3:36 PM CDT Oxygen Saturation - - Inhaled Oxygen Concentration - - Weight 65.8 kg (145 lb 1 oz) 05/11/2019 3:36 PM CDT Height 167.6 cm (5' 6 ) 05/11/2019 3:36 PM CDT Body Mass Index 23.41 05/11/2019 3:36 PM CDT documented in this encounter Progress Notes * Justine Mandujano MD - 05/11/2019 3:00 PM CDT Identifying Data Subjective Gabi Sheth is a 53-year-old female who is kindly referred by Dr.Bruce Lomeli to [facility] hem/Onc service for lung nodules. Reason for consultation : Consult Referral physician: PCP: SABAS LOMELI MD MD ATT: Justine Mandujano MD History of Present Illness: Patient is a 53 year old female with a past medical history of viral warts, depression, spondylolysis, ovarian cyst and dysmenorrhea. S/P right salpingo- oophorectomy in ( path: benign serous cystadenoma of ovary) and left salpingo-oophorectomy in 06/2009. 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 She quit smoking 2 years ago and does not drink alcohol. She presented to her primary physician Dr. Lomeli's office on January 2019 with complaints of chest pain and tightness, the pain is radiated to the back. She also complains of abdominal pain in the right lower quadrant for 2 to 3 weeks. She was referred to test lead application testing . Her cardiac enzymes EKG. 2D ECHO and treadmill stress tests were negative. CTA of chest done on April 14, 2019 and reported negative for PE but multiple lung nodules suspicious metastatic malignancy. She underwent colonoscopy by Dr. Alberto on April 18, 2019, no malignant lesion or active bleeding revealed. Two polyps removed from rectal region. The pathology reported tubular adenoma or hyperplastic polyp. Patient is referred to hematology oncology service for further work-up of lung nodules. Her chest pain is resolved, but she still has pain in the RLQ and right back, sharp and intermittently, 7 out of 10. She has mild cough and SOB on exertion. She denies fever, chills, headache, hemoptysis, vomiting, hematemesis, black stool, bloody stool or urine. She lost 10 pounds in 4 months. Others, please see the review of systems. Oncology History: Cancer Staging No matching staging information was found for the patient. No history exists. Review of Systems: Review of Systems Constitutional: Positive for malaise/fatigue and weight loss. Negative for chills, diaphoresis and fever. HENT: Negative for ear discharge, ear pain, hearing loss, nosebleeds, sinus pain and tinnitus. Eyes: Negative for blurred vision, double vision, photophobia, pain, discharge and redness. Respiratory: Positive for cough, sputum production and shortness of breath. Negative for hemoptysis, wheezing and stridor. Cardiovascular: Negative for chest pain, palpitations, orthopnea, claudication and leg swelling. Gastrointestinal: Positive for abdominal pain. Negative for blood in stool, constipation, diarrhea,heartburn, nausea and vomiting. Genitourinary: Negative for dysuria, flank pain, frequency, hematuria and urgency. Musculoskeletal: Positive for back pain. Negative for falls, joint pain, myalgias and neck pain. Skin: Negative for itching and rash. Neurological: Negative for dizziness, tingling, tremors, sensory change, speech change, focal weakness, seizures and headaches. Endo/Heme/Allergies: Negative for environmental allergies. Does not bruise/bleed easily. Psychiatric/Behavioral: Positive for depression. Negative for hallucinations, memory loss, substance abuse and suicidal ideas. The patient is nervous/anxious and has insomnia. Pertinent History: Past Medical History: Diagnosis Date ??? Chest pain ??? Depression ??? Encounter for screening colonoscopy 04/15/2019 ??? Generalized osteoarthritis Pertinent family history is not on file. Social History Socioeconomic History ??? Marital status: [...] Last attempt to quit: 2017 Years since quittin.5 ??? Smokeless tobacco: Never Used Substance and Sexual Activity ??? Alcohol use: Yes Alcohol/week: 1.0 - 2.0 oz Types: 1 - 2 Glasses of wine per week Comment: daily ??? Drug use: No ??? Sexual activity: Not on file Lifestyle ??? Physical activity: Days per week: Not on file Minutes per session: Not on file ??? Stress: Not on file Relationships ??? Social connections: Talks on phone: Not on file Gets together: Not on file Attends sabianism service: Not on file Active member of [...] Social History Narrative ??? Not on file Past Surgical History: Procedure Laterality Date ??? BLADDER SURGERY bladder tie up ? ? COLONOSCOPY & POLYPECTOMY 04/18/2019 Dr. Alberto - GILL, HPx2 ??? HYSTERECTOMY ??? JOINT REPLACEMENT Left hip ??? TOTAL HIP ARTHROPLASTY Left Current Outpatient Medications Medication Sig Dispense Refill ??? buPROPion XL 150 MG 24 hr tablet Take 450 mg by mouth daily. ??? calcium citrate-vitamin D 315 MG-250 UNIT 315-250 MG-UNIT Tab tablet Take 1 tablet by mouth 2 (two) times daily as needed. ??? estradiol 1 MG tablet Take 1 mg by mouth daily. ??? lorazepam 0.5 MG tablet Take 0.5 mg by mouth 2 (two) times a day. ??? Multiple Vitamins-Minerals (MULTIVITAMIN ADULT OR) Take 1 tablet by mouth daily. ??? oxybutynin XL 10 MG 24 hr tablet Take 10 mg by mouth daily. ??? ropinirole 1 MG tablet Take 1 mg by mouth nightly at bedtime. No current facility-administered medications for this visit. Allergies Allergen Reactions ??? Penicillins Unknown ??? Quinine Derivatives Unknown ??? Sulfa Antibiotics Unknown Vitals and ECOG Performance Status Height: 5' 6 (1.676 m) , Weight: 65.8 kg (145 lb 1 oz) , BSA (Calculated - sq m): 1.75 sq meters , BP: 130/85 , Temp: 98.1 ??F (36.7 ??C) , Pulse: 94 , Resp: 18 ECO - Symptomatic, but completely ambulatory - Restricted in physically strenuous activity but ambulatory and able to carry out work of a light or sedentary nature (e.g., light household work, office work) Physical Exam Physical Exam Laboratory CBC: ABS. NEUTROPHILS Date Value Ref Range Status 05/11/2019 5.27 1.60 - 8.30 x10'3/uL Final WBC Date Value Ref Range Status 05/11/2019 8.7 4.5 - 10.8 x10'3/uL Final HGB Date Value Ref Range Status 05/11/2019 13.5 12.0 - 16.0 G/DL Final MCV Date Value Ref Range Status 05/11/2019 91.2 78.0 - 100.0 FL Final HCT Date Value Ref Range Status 05/11/2019 40.2 36.0 - 47.0 % Final PLT Date Value Ref Range Status 05/11/2019 304 150 - 350 x10'3/uL Final CMP Lab Results Component Value Date/Time NA 139 05/11/2019 03:28 PM NA 136 04/01/2019 01:52 PM Lab Results Component Value Date/Time K 4.0 05/11/2019 03:28 PM K 3.8 04/01/2019 01:52 PM Lab Results Component Value Date/Time CL 102 05/11/2019 03:28 PM CL 103 04/01/2019 01:52 PM Lab Results Component Value Date/Time CO2 28.6 05/11/2019 03:28 PM CO2 28.6 04/01/2019 01:52 PM Lab Results Component Value Date/Time BUN 15 05/11/2019 03:28 PM BUN 14 04/01/2019 01:52 PM Lab Results Component Value Date/Time CR 1.06 (H) 05/11/2019 03:28 PM CR 0.85 04/01/2019 01:52 PM Lab Results Component Value Date/Time GLU 90 05/11/2019 03:28 PM GLU 133 (H) 04/01/2019 01:52 PM Lab Results Component Value Date/Time TP 7.6 05/11/2019 03:28 PM Lab Results Component Value Date/Time ALB 3.7 05/11/2019 03:28 PM Lab Results Component Value Date/Time ALKP 91 05/11/2019 03:28 PM Lab Results Component Value Date/Time AST 16 05/11/2019 03:28 PM Lab Results Component Value Date/Time ALT 20 05/11/2019 03:28 PM Lab Results Component Value Date/Time TBIL 0.3 05/11/2019 03:28 PM Lab Results Component Value Date/Time CA 8.7 05/11/2019 03:28 PM CA 9.0 04/01/2019 01:52 PM Lab Results Component Value Date/Time AGAP 8.4 05/11/2019 03:28 PM AGAP 4.4 (L) 04/01/2019 01:52 PM Lab Results Component Value Date/Time GFRNON 59 (L) 05/11/2019 03:28 PM GFRNON 77 (L) 04/01/2019 01:52 PM No results found for: CA125, CEA, AFPS, CA199, PSA, LDH, FIBRINOGEN Imaging No results found. Assessment and Plan Encounter Diagnose(s) ICD-10-CM ICD-9-CM 1. Multiple lung nodules on CT R91.8 793.19 CBC W/DIFF AUTOMATED COMPREHENSIVE METABOLIC PANEL CARCINOEMBRYONIC ANTIGEN IMMUNOASSAY, TUMOR ANTIGEN, CA 125 CT CHEST+ABD+PEL W CON CT GD BX LUNG LT CANCELED: CT ABD+PEL W CON 2. Lower abdominal pain R10.30 789.09 CARCINOEMBRYONIC ANTIGEN IMMUNOASSAY, TUMOR ANTIGEN, CA 125 CT CHEST+ABD+PEL W CON CT GD BX LUNG LT CANCELED: CT ABD+PEL W CON 53 year old female with a past medical history of viral warts, depression, spondylolysis, ovarian cyst and dysmenorrhea. She is kindly referred by Dr. Lomeli to my office for abnormal CT finding. 1. Numerous scattered pulmonary nodules in bilateral lungs shown by CT scan at [place], [place] on 04/01/19--is it metastatic malignancy or other? - CT scan of [facility] reported a large complex septated cystic mass in left adnexal mass on 04/20/19. - S/P right salpingo-oophorectomy in ( path: benign serous cystadenoma of ovary) and left salpingo-oophorectomy by Dr. Dallin Chang in 06/2009. 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 - S/P colonoscopy on April 17, 2019: negative for malignancy. - She saw [facility] GRADER/Onc Dr. Vera who is going to do debulking surgery on . - Will refer to IR physician for CT-guided lung biopsy NENO. - CA125 and CEA ordered. - Will give a further recommendation after lung biopsy report and debulking surgery. - RTC on 06/01/19. 2. Chest pain and abdominal pain: Her chest pain is resolved. - S/P Cardiac workup. - Symptomatic management with tylenol and Stevenson if needed. 3. Tobacco abuse: she quit it 2 years ago. 4. ECOG PS 1 to 2. I would like to thank Dr. Lomeli for asking me to participate in this patient's care. Time Spent: I explained about clinical findings and management plans to patient and answered all ofquestions to patient. I discussed this case with Dr. Vera. Approximately 60 minutes was spent in direct patient consultation and the majority of that time (>50%) was spent on counseling and coordination of care. Providers PRIMARY MEDICAL ONCOLOGIST: JUSTINE MANDUJANO MD PRIMARY CARE PROVIDER: SABAS LOMELI MD CONSULT SERVICES: Hematology Oncology CC: SABAS LOMELI MD CC; Dr. Neel Vera, [facility] R[facility] RIB GRADER/ONC. documented in this encounter Plan of Treatment Not on file documented as of this encounter Results * IMMUNOASSAY, TUMOR ANTIGEN, CA 125 (05/11/2019 3:28 PM CDT) CA 125 5.5 0.0 - 35.0 U/mL 05/12/2019 2:[address] [facility] 05/11/2019 3:28 PM CDT us Justine Mandujano MD LABORATORY Final Result Performing Organization Address [facility]/ZIP Co de Phone Number [facility] [address] [place] [address], [place] [phone] * CARCINOEMBRYONIC ANTIGEN (05/11/2019 3:28 PM CDT) Pathologist [facility] CEA 1.6 0.0 - 5.0 NG/ML 05/12/2019 2:[address] [facility] 05/11/2019 3:28 PM CDT us Justine Mandujano MD LABORATORY Final Result Performing Organization Address [facility] de Phone Number [facility] [address] [place] [address], [place] [phone] * (ABNORMAL) COMPREHENSIVE METABOLIC PANEL (05/11/2019 3:28 PM CDT) Pathologist [facility] SODIUM S/P/B 139 136 - 145 MMOL/L 05/11/2019 3:53 PM CDT [facility] POTASSIUM S/P/B 4.0 3.5 - 5.1 MMOL/L 05/11/2019 3:53 PM CDT [facility] CHLORIDE S/P/B 102 98 - 107 MMOL/L 05/11/2019 3:53 PM CDT [facility] CO2 28.6 21.0 - 32.0 MMOL/L 05/11/2019 3:53 PM CDT [facility] GLUCOSE 90 70 - 140 MG/DL 05/11/2019 3:53 PM CDT [facility] BUN 15 6 - 24 MG/DL 05/11/2019 3:53 PM T [facility] CREATININE S/P/B 1.06(H) 0.55 - 1.02 MG/DL 05/11/2019 3:53 PM [facility] CALCIUM S/P/B 8.7 8.4 - 10.5 MG/DL 05/11/2019 3:53 PM T [facility] BILIRUBIN TOTAL S/P/B 0.3 0.2 - 1.0 MG/DL 05/11/2019 3:53 PM T [facility] ALKALINE PHOSPHATASE S/P/B 91 41 - 108 U/L 05/11/2019 3:53 PM T [facility] AST 16 15 - 37 U/L 05/11/2019 3:53 PM [facility] ALT 20 14 - 59 U/L 05/11/2019 3:53 PM [facility] TOTAL PROTEIN S/P/B 7.6 6.4 - 8.2 G/DL 05/11/2019 3:53 PM T [facility] ALBUMIN S/P/B 3.7 3.4 - 5.0 G/DL 05/11/2019 3:53 PM [facility] ANION GAP 8.4 5.0 - 15.0 MMOL/L 05/11/2019 3:53 PM [facility] OSMOLALITY (CALC) 288 MOSM/KG 05/11/2019 3:53 PM T [facility] Comment:REFERENCE RANGE NOT ESTABLISHED EGFR NON-AFR. AMER. 59(L) >89 ML/MIN/1 .73 M2 05/11/2019 3:53 PM T [facility] EGFR AFR. AMER. 68(L) >89 ML/MIN/1 .73 M2 05/11/2019 3:53 PM [facility] GFR NOTES THE ESTIMATED GFR IS CALCULATED USING THE 2009 CKD-EPI EQUATION. THE FOLLOWING CATEGORIES FOR GRADING RENAL FUNCTION ARE RECOMMENDED BY THE INTERNATIONAL SOCIETY OF NEPHROLOGY (KDIGO 2012 CLINICAL PRACTICE GUIDELINE). 05/11/2019 3:53 PM T [facility] Comment: G1,NORMAL OR HIGH: >89 ml/min/1.73 m2 G2,MILDLY DECREASED: 60-89 ml/min/1.73 m2 G3A,MILDLY TO MODERATELY DECREASED: 45-59 ml/min/1.73 m2 G3B,MODERATELY TO SEVERELY DECREASED: 30-44 ml/min/1.73 m2 G4,SEVERELY DECREASED: 15-29 ml/min/1.73 m2 G5,KIDNEY FAILURE: <15 ml/min/1.73 m2 05/11/2019 3:28 PM CDT us Justine Mandujano MD LABORATORY Final Result [facility] [address] [place] [address], * (ABNORMAL) CBC W/DIFF AUTOMATED (05/11/2019 3:28 PM CDT) WBC 8.7 4.5 - 10.8 x10'3/uL 05/11/2019 3:34 PM CDT [facility] RBC 4.41 4.10 - 5.40 x10'6/uL 05/11/2019 3:34 PM CDT [facility] HGB 13.5 12.0 - 16.0 G/DL 05/11/2019 3:34 PM CDT [facility] HCT 40.2 36.0 - 47.0 % 05/11/2019 3:34 PM CDT [facility] MCV 91.2 78.0 - 100.0 FL 05/11/2019 3:34 PM CDT [facility] MCH 30.6 27.0 - 31.0 PG 05/11/2019 3:34 PM CDT [facility] MCHC 33.6 33.0 - 36.0 G/DL 05/11/2019 3:34 PM CDT [facility] RDW 12.7 11.5 - 14.5 % 05/11/2019 3:34 PM CDT [facility] PLT 304 150 - 350 x10'3/uL 05/11/2019 3:34 PM CDT [facility] MPV 11.3(H) 7.4 - 10.4 FL 05/11/2019 3:34 PM CDT [facility] DIFFERENTIAL COMMENT NORMAL REFERENCE RANGE NOT ESTABLISHED FOR THE PROPORTIONAL LEUKOCYTE DIFFERENTIAL. 05/11/2019 3:34 PM CDT [facility] SEG NEUTROPHILS 60.6 % 9 3:34 PM CDT [facility] LYMPHOCYTES 30.7 % 05/11/2019 3:34 PM CDT [facility] MONOCYTES 7.8 % 05/11/2019 3:34 PM CDT [facility] EOSINOPHILS 0.0 % 05/11/2019 3:34 PM CDT [facility] BASOPHILS 0.7 % 05/11/2019 3:34 PM CDT [facility] IMMATURE GRANS % 0.2 % 05/11/20 19 3:34 PM CDT [facility] NRBC 0.0 % 05/11/2019 3:34 PM CDT [facility] ABS. NEUTROPHILS 5.27 1.60 - 8.30 x10'3/uL 05/11/2019 3:34 PM CDT [facility] ABS. LYMPHOCYTES 2.67 0.80 - 4.70 x10'3/uL 05/11/2019 3:34 PM CDT [facility] ABS. MONOCYTES 0.68 0.00 - 1.50 x10'3/uL 05/11/2019 3:34 PM CDT [facility] ABS. EOSINOPHILS 0.00 0.00 - 0.40 x10'3/uL 05/11/2019 3:34 PM CDT [facility] ABS. BASOPHILS 0.06 0.00 - 0.20 x10'3/uL 05/11/2019 3:34 PM CDT [facility] ABS. IMMATURE GRANULOCYTES 0.02 0.00 - 0.03 x10'3/uL 05/11/2019 3:34 PM CDT [facility] ABS. NUCLEATED RBC'S 0.00 0.00 x10'3/uL 05/11/2019 3:34 PM T [facility] 05/11/2019 3:28 PM CDT us Justine Mandujano MD LABORATORY Final Result [facility] [address] [place] [address], documented in this encounter Visit Diagnoses Diagnosis Multiple lung nodules on CT- Primary Soft tissue lesion of pelvic region Lower abdominal pain Abdominal pain, other specified site Abnormal weight loss Loss of weight documented in this encounter Care Teams Ceramic Products Sales Engineer Relationship Specialty Start Date End Date Sabas Lomeli MD [address] [place] [phone] PCP - General FAMILY PRACTICE 03/31/19 Yolanda Huston APRN, [facility] MAGISTRATE-C [address] [place] [phone] CARDIOVASCULAR DISEASE 03/31/19 documented as of this encounter
--- OUTSIDE RECORDS SUMMARY | 2024-10-18 01:31 | XMS_ITS | Encounter Summary ---
Author Organization [facility] Address [address] [place] [address]. [place], [place] [address] [place] [address] Care Team Providers Care Broadcaster Name Role Phone Sabas Kamara MD Primary Care Provider [phone] Yolanda Huston APRN, HIMS MANAGER-C Unavailable [phone] Reason for Visit * Reason Onset Date Comments Information 05/23/2019 Encounter Details Date Type Department Care Team (Late st Contact Info) Description 05/23/2019 Telephone [facility] Oncology [address] [phone] Iram Smiley, RN Information Social History Tobacco Use Types Packs/Day Years [...] on filedocumented in this encounter Care Teams Broadcaster Relationship Specialty Start Date End Date Sabas Kamara MD [address] [place] [phone] PCP - General FAMILY PRACTICE 03/31/19 Yolanda Huston APRN, HIMS MANAGER-C [address] [place] [phone] CARDIOVASCULAR DISEASE 03/31/19 documented as of this encounter
--- OUTSIDE RECORDS SUMMARY | 2024-10-18 01:31 | XMS_ITS | Encounter Summary ---
Author Organization [facility] Address [address] [place] [address]. [place], [place] [address] [place] [address] Care Team Providers Care Marine Engineering Consultant Name Role Phone Sabas Kamara MD Primary Care Provider [phone] Yolanda Huston APRN, KITCHEN HELP HANDYMAN-C Unavailable [phone] Encounter Details Date Type Department Care Team (Late st Contact Info) Description 04/01/2019 Abstract [facility] [address] [place] [id number] Abstract, Doc [facility] Social History Tobacco Use Types Packs/Day Years [...] on filedocumented in this encounter Care Teams Marine Engineering Consultant Relationship Specialty Start Date End Date Sabas Kamara MD [address] [place] [phone] PCP - General FAMILY PRACTICE 03/31/19 Yolanda Huston APRN, KITCHEN HELP HANDYMAN-C [address] [place] [phone] CARDIOVASCULAR DISEASE 03/31/19 documented as of this encounter
--- OUTSIDE RECORDS SUMMARY | 2024-10-18 01:31 | XMS_ITS | Encounter Summary ---
Author Organization [facility] Address [address] [place] [address]. [place] [address] [place] [address] Care Team Providers Care Business Strategist Name Role Phone Sabas Kamara MD Primary Care Provider [phone] Yolanda Huston APRN, TANK PROCESSOR-C Unavailable [phone] Reason for Visit * Reason Onset Date Comments Schedule Test 04/13/2019 Encounter Details Date Type Department Care Team ([facility] st Contact Info) Description 04/13/2019 Telephone [facility] [address] [place] [address] Yolanda Huston APRN, TANK PROCESSOR-C [address] [place] [address] Schedule Test Social History Tobacco Use Types Packs/Day Years [...] as of this encounter Progress Notes * Raphael Marques LPN - 04/13/2019 10:28 AM CDT Spoke to Gabi, let her know her D-dimer is elevated, spoke to Dr. Armando, he recommended at CT chest w/pe protocol. Gabi will go to [facility] to have test done as it is close to her work. Faxed order, pt will call to schedule this as she does not have insurance info at this time, soslauren will be a self pay. No further questions at this time. documented in this encounter Plan of Treatment Not on file documented as of this encounter Visit Diagnoses Not on filedocumented in this encounter Care Teams Business Strategist Relationship Specialty Start Date End Date Sabas Kamara MD [address] [place] [phone] PCP - General FAMILY PRACTICE 03/31/19 Yolanda Huston APRN, TANK PROCESSOR-C [address] [place] [phone] CARDIOVASCULAR DISEASE 03/31/19 documented as of this encounter
--- OUTSIDE RECORDS SUMMARY | 2024-10-18 01:31 | XMS_ITS | Encounter Summary ---
Author Organization [facility] Address [address] [place] [address]. [place], [place] [id number] [place] [address] Care Team Providers Care Information Assoc Name Role Phone Unavailable Primary Care Provider Unavailabl e Encounter Details Date Type Department Care Team (Late st Contact Info) Description 10/31/[address] [facility] CONVERSION [address] [place] [address] , Generic Conversion, Social History Tobacco Use Types Packs/Day Years [...]
--- OUTSIDE RECORDS SUMMARY | 2024-10-18 01:31 | XMS_ITS | Encounter Summary ---
Author Organization [facility] Address [address] [place] [address]. [place] [address] [place] [address] Care Team Providers Care Chief Counsel Name Role Phone Sabas Lomeli MD Primary Care Provider [phone] Yolanda Huston APRN EAP SPECIALIST-C Unavailable [phone] Reason for Visit * Auth/Cert Specialty Diagnoses / Procedures Referred By Contac t Referred To Contact Diagnoses Encounter for screening colonoscopy colon cancer screening, abdominal pain Procedures COLONOSCOPY DIAGNOSTIC WITH/WITHOUT SPECIMEN BRUSH/WASH Referral ID Status Reason Start Date Expiration Date Visits Re quested Visits Authorized [id number] 1 1 Encounter Details Date Type Department Care Team (Late st Contact Info) Description 04/18/2019 10:05 AM CDT - 04/18/2019 11:20 AM CDT Surgery [facility] [address] [place] [address] [place] [address] Hermes Alberto MD COLONOSCOPY with polypectomy Surgery Details Date/Time Status Location OR Service Patient Class Case Class Case Type Trauma Case? 04/18/2019 10:05 AM Posted [facility] Endo General Short Stay/Outpati ent Surgery No Panel 1 Procedure [facility] Anes Op Region Wound Class Comments COLONOSCOPY with polypectomy N/A Monitor Anesthesia Care Clean Contaminated Surgeon Surgeon Role Service Panel Hermes Alberto MD Primary General 1 documented in this encounter Social History Tobacco [...] Sign Reading Time Taken Comments Blood Pressure 115/80 04/18/2019 11:05 AM CDT Pulse 86 04/18/2019 11:05 AM CDT Temperature 36.4 ??C (97.6 ??F) 04/18/2019 11:05 AM C DT Respiratory Rate 18 04/18/2019 11:05 AM CDT Oxygen Saturation 99% 04/18/2019 11:05 AM CDT Inhaled Oxygen Concentration - - Weight 67.1 kg (148 lb) 04/15/2019 2:20 PM CDT Height 167.6 cm (5' 6 ) 04/15/2019 2:20 PM CDT Body Mass Index 23.89 04/15/2019 2:20 PM CDT documented in this encounter Discharge Instructions * Discharge Instructions* Gaby Kimball RN - 04/18/2019 10:50 AM CDT Images from the original note were not included. Patient Education Cancer Screening The Basics Written by the doctors and editors at [facility] What is cancer screening???--??Cancer screening is a way in which doctors check for some forms of cancer in the body when you don't have any symptoms. The goal of cancer screening is to find those cancers that can be found as early as possible, before a person has any symptoms. Different tests can be used to screen for different types of cancers. The age at which screening starts varies depending on the type of cancer being screened for. That's because different cancers tend to strike at different times in a person's life. Why should I have cancer screening???--??Cancer that is found early often is small and can sometimes be cured or treated easily. Treating certain cancers early can help people live longer. Sometimes,screening finds cells that do not yet show cancer, but that might turn into cancer cells. Doctors often treat this pre-cancer before it has a chance to become cancer. Does everyone have the same cancer screening???--??No. Not everyone is screened for the same types of cancer. And not everyone begins cancer screening at the same age. For example, people with a family history of certain cancers might begin screening at a younger age than people without a family history. People might have repeat screening tests at different times, too. Ask your doctor or nurse: ?? Which cancers should I be screened for? ?? Are there choices to make about which screening tests to have? ?? At what age should I begin cancer screening? ?? How often should I be screened? Does an abnormal screening test result mean that I have cancer???--??Not always. An abnormal screening test result means that you might have cancer. It does not mean that you definitely have cancer. If you have an abnormal result, your doctor or nurse will probably need to do other tests to find out for sure if anything is wrong. Try not to worry about having cancer until you follow up with your doctor or nurse. Which cancers can people be screened for???--??Some of the types of cancer for which screening tests are available are: ?? Breast cancer - The main test used to screen for breast cancer is called a mammogram. Doctors do not always agree about when women should start having mammograms. But most women start around age40 or 50. Women who have a strong family history of breast cancer might begin screening earlier. Work with your doctor or nurse to decide when to start breast cancer screening and at what age you might stop screening. ?? Colon cancer - There are multiple screening tests for colon cancer. The choice of which test to have is up to you and your doctor. Doctors recommend that most people begin having colon cancer screening at age 50. Some people have an increased chance of getting colon cancer, because of a strong family history or certain medical conditions. These people might begin screening at a younger age. ?? Cervical cancer - The main test used to screen for cervical cancer is called a Pap smear. Cervical cancer screening often begins when a woman turns 21. Doctors might add on another screening test after a woman turns 30. Women who are older than 65 might or might not need to continue cervical cancer screening. If you are older than 65, talk with your doctor about whether or not you should keep getting screened. ?? Prostate cancer - The main test used to screen for prostate cancer is called a PSA test. It isunclear whether getting screened for prostate cancer can extend a man's life or help him feel better. For this reason, most experts do not recommend routine prostate cancer screening. Instead, experts recommend that each man work with his doctor to decide whether screening is right for him. In mostcases, men should start discussing prostate cancer screening around the age of 50. Most doctors do not recommend screening for men age 70 or older or for men with serious health problems. ?? Lung cancer - The main test used to screen for lung cancer is an imaging test called a low doseCT scan. If you are at high risk of lung cancer, for example, because you smoke, ask your doctor about the risks and benefits of screening. If you really want to reduce your chances of getting or dying from lung cancer, the best thing you can do is to stop smoking. ?? Ovarian cancer - To screen for ovarian cancer, doctors can do a blood test, an imaging test called an ultrasound, or both. But these tests do not always find early ovarian cancer. Still, the testsare sometimes used in women with a family history of ovarian or breast cancer. For them, screening might begin at age 30 to 35. Screening is not recommended for women who do not have a family historyof ovarian or breast cancer. All topics are updated as new evidence becomes available and our peer review process is complete. This topic retrieved from [employer] on: Nov 09, 2018. Topic 46865 Version 10.0 Release: 26.5.5 - C27.6 ?2019??[employer] and/or its affiliates.??All rights reserved. Consumer Information Use and Disclaimer This information is not specific medical advice and does not replace information you receive from your health care provider. This is only a brief summary of general information. It does NOT include all information about conditions, illnesses, injuries, tests, procedures, treatments, therapies, discharge instructions or life-style choices that may apply to you. You must talk with your health care provider for complete information about your health and treatment options. This information should not be used to decide whether or not to accept your health care provider's advice, instructions or recommendations. Only your health care provider has the knowledge and training to provide advice that is right for you.The use of [employer] content is governed by the [employer] Terms of Use. ??2019 [employer]. All rights reserved. Copyright ?2019??[employer] and/or its affiliates.??All rights reserved. Patient Education Colon and Rectal Cancer Screening The Basics Written by the doctors and editors at [employer] What is colon and rectal cancer screening???--??Colon and rectal cancer screening is a way in whichdoctors check the colon and rectum for signs of cancer or growths (called polyps) that might becomecancer. It is done in people who have no symptoms and no reason to think they have cancer. The goalis to find and remove polyps before they become cancer, or to find cancer early, before it grows, spreads, or causes problems. The colon and rectum are the last part of the digestive tract (figure 1). When doctors talk about colon and rectal cancer screening, they use the term colorectal. That is just a shorter way of saying colon and rectal. It's also possible to say just colon cancer screening. Studies show that having colon cancer screening lowers the chance of dying from colon cancer. Thereare several different types of screening test that can do this. What are the different screening tests for colon cancer???--??They include: ?? Colonoscopy - Colonoscopy allows the doctor to see directly inside the entire colon. Before you can have a colonoscopy, you must clean out your colon. You do this at home by drinking a special liquid that causes watery diarrhea for several hours. On the day of the test, you get medicine to help you relax. Then a doctor puts a thin tube into your anus and advances it into your colon (figure 2).The tube has a tiny camera attached to it, so the doctor can see inside your colon. The tube also has tiny tools on the end, so the doctor can remove pieces of tissue or polyps if they are there. After polyps or pieces of tissue are removed, they are sent to a lab to be checked for cancer. ? Advantages of this test - Colonoscopy finds most small polyps and almost all large polyps and cancers. If found, polyps can be removed right away. This test gives the most accurate results. If any other screening tests are done first and come back positive, a colonoscopy will need to be done for follow-up. If you have a colonoscopy as your first test, you will probably not need a second follow-up test soon after. ? Drawbacks to this test - Colonoscopy has some small risks. It can cause bleeding or tear the inside of the colon, but this only happens in 1 out of 1,000 people. Also, cleaning out the bowel beforehand can be unpleasant. Plus, people usually cannot work or drive for the rest of the day after the test, because of the relaxation medicine they must take during the test. ?? Sigmoidoscopy - A sigmoidoscopy is similar to a colonoscopy. The difference is that this test looks only at the last part of the colon, and a colonoscopy looks at the whole colon. Before you have a sigmoidoscopy, you must clean out the lower part of your colon using an enema. This bowel cleaningis not as thorough or unpleasant as the one for colonoscopy. For this test, you do not need to takemedicines to help you relax, so you can drive and work afterward if you want. ? Advantages of this test - Sigmoidoscopy can find polyps and cancers in the rectum and the last part of the colon. If polyps are found, they can be removed right away. ? Drawbacks to this test - In about 2 out of 10,000 people, sigmoidoscopy tears the inside of the colon. The test also can't find polyps or cancers that are in the part of the colon the test does notview (figure 3). If doctors find polyps or cancer during a sigmoidoscopy, they usually follow up with a colonoscopy. ?? CT colonography (also known as virtual colonoscopy or CTC) - CTC looks for cancer and polyps using a special X-ray called a CT scan. For most CTC tests, the preparation is the same as it is for colonoscopy. ? Advantages of this test - CTC can find polyps and cancers in the whole colon without the need formedicines to relax. ? Drawbacks to this test - If doctors find polyps or cancer with CTC, they usually follow up with acolonoscopy. CTC sometimes finds areas that look abnormal but that turner off to be healthy. This means that CTC can lead to tests and procedures you did not need. Plus, CTC exposes you to radiation. In most cases, the preparation needed to clean the bowel is the same as the one needed for a colonoscopy. The test is expensive, and some insurance companies might not cover this test for screening. ?? Stool test for blood - Stool is another word for bowel movements. Stool tests most commonly check for blood in samples of stool. Cancers and polyps can bleed, and if they bleed around the time you do the stool test, then blood will show up on the test. The test can find even small amounts of blood that you can't see in your stool. Other less serious conditions can also cause small amounts ofblood in the stool, and that will show up in this test. You will have to collect small samples fromyour bowel movements, which you will put in a special container you get from your doctor or nurse. Then you follow the instructions to mail the container out for the testing. ? Advantages of this test - This test does not involve cleaning out the colon or having any procedures. ? Drawbacks to this test - Stool tests are less likely to find polyps than other screening tests. These tests also often come up abnormal even in people who do not have cancer. If a stool test shows something abnormal, doctors usually follow up with a colonoscopy. ?? Stool DNA test - The stool DNA test checks for genetic markers of cancer, as well as for signs of blood. For this test, you get a special kit in order to collect a whole bowel movement. Then you follow the instructions about how and where to ship it. ? Advantages of this test - This test does not involve cleaning out the colon or having any procedures. When cancer is not present, it is less likely to be falsely abnormal than a stool test for blood. That means it leads to fewer unnecessary colonoscopies. ? Drawbacks to this test - It might be unpleasant to collect and ship a whole bowel movement. If a DNA test shows something abnormal, doctors usually follow up with a colonoscopy. There is no blood test that most experts think is accurate enough to use for screening. How do I choose which test to have???--??Work with your doctor or nurse to decide which test is best for you. Some doctors might choose to combine screening tests, for example, sigmoidoscopy plus stool testing for blood. Being screened-no matter how-is more important than which test you choose. Who should be screened for colon cancer???--??Doctors recommend that most people begin having coloncancer screening at age 50. People who have an increased risk of getting colon cancer sometimes begin screening at a younger age. That might include people with a strong family history of colon cancer, and people with diseases of the colon called Crohn's disease and ulcerative colitis. Most people can stop being screened around the age of 75, or at the latest 85. How often should I be screened???--??That depends on your risk of colon cancer and which test you have. People who have a high risk of colon cancer often need to be tested more often and should have a colonoscopy. Most people are not at high risk, so they can choose one of these schedules: ?? Colonoscopy every [address] colonography (CTC) every 5 years ?? Sigmoidoscopy every 5 to 10 years ?? Stool testing for blood once a year ?? Stool DNA testing every 3 years (but doctors are not yet sure of the best time frame) All topics are updated as new evidence becomes available and our peer review process is complete. This topic retrieved from [employer] on: Nov 09, 2018. Topic 92392 Version 12.0 Release: 26.5.5 - C27.6 ?2019??[employer] and/or its affiliates.??All rights reserved. figure 1: Digestive system This drawing shows the organs in the body that process food. Together these organs are called the digestive system, or digestive tract. As food travels through this system, the body absorbs nutrients and water. Graphic 41257 Version 4.0 figure 2: Colonoscopy During a colonoscopy, you lie on your side and the doctor or nurse puts a thin tube with a camera into your anus (from behind). Then the doctor or nurse advances the tube into the rectum and colon. The camera sends pictures from inside your colon to a television screen. Graphic 34843 Version 5.0 figure 3: Colonoscopy versus sigmoidoscopy During a colonoscopy or a sigmoidoscopy, you lie on your side, and the doctor or nurse puts a thin tube with a camera into your anus (from behind). Then the doctor or nurse advances the tube into therectum and colon. The camera sends pictures from inside your colon to a television screen. A colonoscopy allows the doctor to see the whole colon (shown in pink and green). A sigmoidoscopy allows the doctor to see only the last part of the colon (shown in green). Graphic 82365 Version 5.0 Consumer Information Use and Disclaimer This information is not specific medical advice and does not replace information you receive from your health care provider. This is only a brief summary of general information. It does NOT include all information about conditions, illnesses, injuries, tests, procedures, treatments, therapies, discharge instructions or life-style choices that may apply to you. You must talk with your health care provider for complete information about your health and treatment options. This information should not be used to decide whether or not to accept your health care provider's advice, instructions or recommendations. Only your health care provider has the knowledge and training to provide advice that is right for you.The use of [employer] content is governed by the [employer] Terms of Use. ??2019 [employer]. All rights reserved. Copyright ?2019??[employer]. and/or its affiliates.??All rights reserved. documented in this encounter Medications at Time [...] 1 mg by mouth nightly at bedtime. lorazepam 0.5 MG tabletIndications :Anxiety Take 0.5 mg by mouth 2 (two) times a day. 05/02/2020 documented as of this encounter H&P Notes * Hermes Alberto MD - 04/18/2019 9:47 AM CDT HISTORY AND PHYSICAL INTERVAL NOTE: I have reviewed Ashu Sheth History & Physical which was performed within the past 30 days. After examining Ashu Sheth, no change has occurred in the patient's condition since the H&P was completed. Informed Consent Discussion: Risks, benefits, alternatives as well as the consequences of not performing the surgery/procedure were discussed with the patient and/or family/personal malt liquors sales representative. Questions were answered and the patient/family/personal malt liquors sales representative verbalized understanding and desires to proceed. Source Note - Hermes Alberto MD - 04/15/2019 1:40 PM CDT .Reason for Visit: New Patient and Consult For Colonoscopy (patient presents to clinic as a referral from her PCP for colon cancer screening. patient recently diagnosed with nodule of thyroid and multiple pulmonary nodules and PCP is concerned about colon cancer. Patient states she fluctuates between diarrhea and constipation but denies family history of colon cancer. She has sharp RLQ abdominal pain that comes andgoes.) History of Present Illness: This is 53 years old female patient with a history of right lower quadrant abdominal pain. Patient denies any bowel habit change. No any history of rectal bleeding. No back pain. Negative family history of colon cancer. Denies abdominal bloating. No prior colonoscopies. Patient was found to have small nodules in thyroid and lung. No biopsy pending for now because lesions small. She is referred tome for colonoscopy. CAT scan pending. ROS: Review of Systems All other systems reviewed and are negative. Medications: Current Outpatient Medications: ??? buPROPion XL 150 MG 24 hr tablet, Take 450 mg by mouth daily., Disp: , Rfl: ??? calcium citrate-vitamin D 315 MG-250 UNIT 315-250 MG-UNIT Tab tablet, Take 1 tablet by mouth 2 (two) times daily as needed., Disp: , Rfl: ??? estradiol 1 MG tablet, Take 1 mg by mouth daily., Disp: , Rfl: ??? lorazepam 0.5 MG tablet, Take 0.5 mg by mouth 2 (two) times a day., Disp: , Rfl: ??? Multiple Vitamins-Minerals (MULTIVITAMIN ADULT OR), Take 1 tablet by mouth daily., Disp: , Rfl: ??? oxybutynin XL 10 MG 24 hr tablet, Take 10 mg by mouth daily., Disp: , Rfl: ??? ropinirole 1 MG tablet, Take 1 mg by mouth nightly at bedtime., Disp: , Rfl: Allergies Allergen Reactions ??? Penicillins Unknown ??? Quinine Derivatives Unknown ??? Sulfa Antibiotics Unknown Past Medical History: Diagnosis Date ??? Chest pain ??? Depression ??? Generalized osteoarthritis Past Surgical History: Procedure Laterality Date ??? BLADDER SURGERY bladder tie up ??? HYSTERECTOMY ??? TOTAL HIP ARTHROPLASTY Left Social History [...] file Gets together: Not on file Attends moravian service: Not on file Active member of [...] of Onset ??? Open [employer] Father ??? Stent Sister Family Status Relation Name Status ??? Father (Not Specified) ??? Sister (Not Specified) Physical Exam Constitutional: She is oriented to person, place, and time. She appears well-developed. HENT: Head: Normocephalic. Eyes: No scleral icterus. Neck: Normal range of motion. No JVD present. Cardiovascular: Normal rate, regular rhythm and normal heart sounds. No murmur heard. Pulmonary/Chest: Effort normal and breath sounds normal. She has no wheezes. Abdominal: Soft. Bowel sounds are normal. She exhibits no distension and no mass. There is tenderness (Mild right lower quadrant). There is no rebound and no guarding. No hernia. Musculoskeletal: Normal range of motion. Lymphadenopathy: She has no cervical adenopathy. Neurological: She is alert and oriented to person, place, and time. Skin: Skin is warm. Psychiatric: She has a normal mood and affect. Her behavior is normal. Judgment and thought contentnormal. Filed Vitals: 04/15/19 1358 BP: 156/90 Pulse: 75 Temp: 96.8 ??F (36 ??C) TempSrc: Tympanic Weight: 67.3 kg (148 lb 5.9 oz) Height: 5' 6 (1.676 m) Diagnoses/Impression: 1. Encounter for screening colonoscopy Case request operating room: COLONOSCOPY DIAGNOSTIC WITH/WITHOUT SPECIMEN BRUSH/WASH Vital Signs - Per Unit Routine If patient is on a beta kevin, it must be given pre-op Outpatient (includes extended recovery) Diet NPO time specified Follow anesthesia pre-op orders Recommendations and Plan: Nature of colonoscopy, bowel prep instructions, discussed with patient in details. Patient would bebenefited from screening colonoscopy. Nature of disease, natural course of disease, nature of procedures, indication, benefits, alternatives, risks, complications, preop instructions, postoperative course, discussed with patient in details. Appropriate literature provided. Patient verbalized understanding nature of discussion accept the risk factors and would like to proceed with surgery as recommended. Date of surgery: 04/18/2019 HERMES ALBERTO Referring Provider: Sabas Lomeli PCP: SABAS LOMELI MD documented in this encounter Plan of Treatment Not on file documented as of this encounter Procedures Procedure Name Priority Date/Time Associated Diagnosis Comments PATHOLOGY Routine 04/18/2019 12:46 PM CDT COLONOSCOPY 04/18/2019 10:28 AM CDT COLONOSCOPY DIAGNOSTIC WITH/WITHOUT SPECIMEN BRUSH/WASH 04/18/2019 9:41 AM CDT Encounter for screening colonoscopy documented in this encounter Results * Pathology (04/18/2019 12:46 PM CDT) PATHOLOGY [facility] ? Department of Laboratory Medicine ?[address] ?[place] [address] ? , extension [phone] ? Pathology Report ? Surgical Pathology Report Name: ASHU SHETH YOAV ?Specimen #: [id number] Age: 12 1965 (Age: 53) ? Location: [facility] Sex: F ?Procedure Date: 04/18/2019 Hospital #: [id number] ?Date Received: 04/19/2019 Date Reported: 04/20/2019 Provider: HERMES ALBERTO Source: A: Rectum, polyps x 2 B: Rectum, polyp Preoperative Diagnosis: Colon cancer screening, abdominal pain. Gross Description: Received in two parts: A) Received in formalin, labeled with a patient label and as rectal polyps are two pieces of garcia tissue which are 0.4 and 0.5 cm. ??The larger tissue is bisected and the specimen is entirely submitted in cassette A1. B) Received in formalin, labeled with a patient label and as rectal polyp is a single piece of garcia tissue that is 0.4 cm. ??The specimen is entirely submitted in cassette B1. 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 ? - HYPERPLASTIC POLYP. B) LARGE INTESTINE, RECTAL POLYP, BIOPSY: ? - HYPERPLASTIC POLYP. Electronically Signed Out ? Beny Alexandre M.D. [facility] Tissue specimen (specimen) COLON STRUCTURE / Unknown 04/18/2019 10:21 AM CDT Comment:Removed with snare Hermes Alberto MD PATHOLOGY/CYTOLOGY ORDERABLES Final Result [facility] [address] [place] [address], [id number] * COLONOSCOPY (04/18/2019 10:28 AM CDT) Hermes Alberto MD GI PROCEDURE ORDERA BLES Final Result documented in this encounter Visit Diagnoses Diagnosis Encounter for screening colonoscopy- Primary Special screening for malignant neoplasms, colon Encounter for screening colonoscopy Special screening for malignant neoplasms, colon Encounter for screening colonoscopy Special screening for malignant neoplasms, colon documented in this encounter Admitting Diagnoses Diagnosis Encounter for screening colonoscopy Special screening for malignant neoplasms, colon documented in this encounter Administered Medications Inactive Administered Medications - up to 3 most recent administrations Medication Order MAR Action Action Date Dose Rate Site lactated ringers infusion at 10 mL/hr, Intravenous, Continuous, Starting on Thu04/18/19 at 0930, Until Renea 04/21/19 at 1200, Infuse at TKO rate, Pre-Op New Bag 04/18/2019 9:56 AM CDT New Bag 04/18/2019 9:38 AM CDT 10 mL/hr metoclopramide (REGLAN) injection 10 mg 10 mg, Intravenous, Once as needed, Nausea, Vomiting, 1 dose, Starting on Thu04/18/19 at 1401, Until Renea 04/21/19 at 1200, Administer slowly over 3-4 minutes. Do not administer to bowel surgery patients. If more than one antiemetic is ordered, use in this order: ondansetron, diphenhydramine, metoclopramide, haloperidol, promethazine. If nausea / vomiting still not controlled, move to next ordered medication., PACU ondansetron (ZOFRAN) injection 4 mg 4 mg, Intravenous, Once as needed, Nausea, Vomiting, 1 dose, Starting on 04/18/19 at 1401, Until Renea 04/21/19 at 1200, Administer slowly over 3-4 minutes. If more than one antiemetic is ordered, use in this order: ondansetron, diphenhydramine, metoclopramide, haloperidol, promethazine. If nausea / vomiting still not controlled, move to next ordered medication., PACU documented in this encounter Active and Recently Administered Medications Times are shown in CDT. Continuous Medication Order 04/16/2019 04/17/2019 04/18/2019 lactated ringers infusion at 10 mL/hr, Intravenous, Continuous, Starting on Thu04/18/19 at 0930, Until Renea 04/21/19 at 1200, Infuse at TKO rate, Pre-Op 0938 (New Bag - Prov ider: Natty Agee RN)0956 (New Bag - Provider: Salome Chan CRNA)1015 (Anesthesia Volume Adjustment - Provider: Salome Chan CRNA)1025 (Anesthesia Volume Adjustment - Provider: Salome Chan CRNA)1100 (Infusion Stop Time - Provider: Gaby Kimball RN) PRN Medication Order 04/16/2019 04/17/2019 04/18/2019 metoclopramide (REGLAN) injection 10 mg 10 mg, Intravenous, Once as needed, Nausea, Vomiting, 1 dose, Starting on Thu04/18/19 at 1401, Until Renea 04/21/19 at 1200, Administer slowly over 3-4 minutes. Do not administer to bowel surgery patients. If more than one antiemetic is ordered, use in this order: ondansetron, diphenhydramine, metoclopramide, haloperidol, promethazine. If nausea / vomiting still not controlled, move to next ordered medication., PACU ondansetron (ZOFRAN) injection 4 mg 4 mg, Intravenous, Once as needed, Nausea, Vomiting, 1 dose, Starting on 04/18/19 at 1401, Until Renea 04/21/19 at 1200, Administer slowly over 3-4 minutes. If more than one antiemetic is ordered, use in this order: ondansetron, diphenhydramine, metoclopramide, haloperidol, promethazine. If nausea / vomiting still not controlled, move to next ordered medication., PACU documented in this encounter Care Teams Chief Counsel Relationship Specialty Start Date End Date Sabas Lomeli MD [address] [place] [phone] PCP - General FAMILY PRACTICE 03/31/19 Yolanda Huston APRN, EAP SPECIALIST-C [address] [place] [phone] CARDIOVASCULAR DISEASE 03/31/19 documented as of this encounter
--- OUTSIDE RECORDS SUMMARY | 2024-10-18 01:31 | XMS_ITS | Encounter Summary ---
Author Organization [facility] Address [address] [place] [address]. [place] [address] [place] [address] Care Team Providers Care Credit Card Analyst Name Role Phone Sabas Kamara MD Primary Care Provider [phone] Yolanda Huston APRN SECTION BEAMER-C Unavailable [phone] Reason for Visit * Auth/Cert Specialty Diagnoses [...] Expiration Date Visits Re quested Visits Authorized [id number] 1 1 Encounter Details Date Type Department Care Team (Late st Contact Info) Description 05/19/2019 1:30 PM CDT - 05/19/2019 6:15 PM CDT Surgery [address] [address] Neel Vera MD [address] [place] [address] [place] [id number] ROBOTIC XI LAPAROSCOPIC ASSISTED EXCISION OF left PELVIC MASS, left ureterolysis Surgery Details Date/Time Status Location OR Service Patient Class Case Class Case Type Trauma Case? 05/19/2019 1:30 PM Posted [facility] OR MS 04 Robotic Short Stay/Outpat ient Surgery E - Elective No Panel 1 Procedure LRB Anes Op Region Wound Class Comments ROBOTIC XI LAPAROSCOPIC ASSI STED EXCISION OF left PELVIC MASS, left ureterolysis N/A General Cl feroz Surgeon Surgeon Role Service Panel Neel Vera MD Primary Robotic 1 Den Levy MD Resident - Assisting Gynecology 1 Case Notes PATIENT IS ENROLLED IN RESEARCH STUDY- ORDERS FOR LABS RECEIVED -A RESEARCH COORDINATOR WILL ESCORT PATIENT TO LAB FOR SPECIMEN COLLECTION documented in this encounter Social History Tobacco [...] be sent through Care Everywhere. * Laparoscopy (Kazakh) * Docusate, ADULT (Kazakh) * Hydrocodone and Acetaminophen, ADULT (Kazakh) * Ibuprofen, ADULT (Kazakh) documented in this encounter Medications at Time [...] Vera MD - 05/19/2019 3:28 PM CDT INSPECTOR OF WEIGHTS AND MEASURES Brief Op Note Patient Name: Ashu Sheth [...] ligament remnant DEN LEVY MD 05/19/2019 SCOTTY LAWN SERVICE MANAGER ONC Attending Attestation SCOTTY INSPECTOR OF WEIGHTS AND MEASURES resident note reviewed and findings verified. I was present and scrubbed for the entire procedure listed in the resident's note. See dictated operative note. * Op Note - Neel Vera MD - 05/19/2019 12:00 AM CDT SURGEON: Neel Vera MD, Ph.D. MANAGER MECHANICAL: Den Levy MD (PGY3) PREOPERATIVE DIAGNOSES: 1. [...] an EndoCatch bag and delivered via the assistant technician port. It was sent to pathology for [...] removed from the operative field via the assistant technician port and sent to patholog y for [...] site was repaired with 0-Vicryl in a bthtum-[id number] fashion endoscopically. Next, all instruments were removed [...] and was present during the entire surgery. #[id number] /NTS documented in this encounter Plan of [...] * Pathology (05/19/2019 2:54 PM CDT) PATHOLOGY [facility] ? Department of Laboratory Medicine ?[address] ?[place] [address] ? , extension [phone] ? Pathology Report ? Surgical Pathology Report Name: ASHU SHETH YOAV ?Specimen #: [id number] Age: 12 1965 (Age: 53) ? Location: [facility] Sex: F ?Procedure Date: 05/19/2019 Hospital #: [id number] ?Date Received: 05/19/2019 Date Reported: 05/23/2019 Provider: [...] ??No excrescences or solid areas are identified. ??Metal Sprayer tissue is submitted for frozen section analysis and subsequent permanent sections as 1. ??Additional counter sales representative tissue is submitted in cassette A2. B) Received in formalin, labeled with a patient label and as right infundibulopelvic remnant is a 2.1 x 1.4 x 1.0 cm piece of soft tissue with an erythematous surface. ??Sections reveal multiple vessels. ??No mass lesions are identified. ??Metal Sprayer tissue is submitted in cassette B1. Intraoperative Diagnosis: FROZEN SECTION DIAGNOSIS FSA1) LEFT PELVIC MASS, EXCISION: ? - DILATED FALLOPIAN TUBE REMNANT/HYDROSALPINX (John Piedra M.D.). FINAL DIAGNOSIS: A) LEFT PELVIC MASS, EXCISION: ? - DILATED FALLOPIAN TUBE REMNANT (HYDROSALPINX). B) RIGHT INFUNDIBULOPELVIC REMNANT, EXCISION: ? - UNREMARKABLE VASCULAR TISSUE. Electronically Signed Out ? John Piedra M.D. [facility] Tissue specimen (specimen) (OTHER (type in comments)) 05/19/2019 2:48 PM CDT Neel Vera MD PATHOLOGY/CYTOLOGY ORDERABLES F inal Result [facility] [address] [place] [address], [id number] * TYPE & SCREEN (05/19/2019 12:21 PM CDT) ABO/RH A POSITIVE 05/19/2019 1:45 PM CDT [facility] ANTIBODY SCREEN NEGATIVE 9 1:45 PM CDT [facility] SAMPLE EXPIRATION 05/22/2019 05/19/2019 12:56 PM CDT [facility] 05/19/2019 12:2 1 PM CDT us Neel Vera MD BLOOD BANK TEST ORDERABLES Cherelle rascon Result [facility] [address] [place] [address], [place] [phone] [id number] documented in this encounter Visit Diagnoses Not on filedocumented in this encounter Administered Medications Inactive Administered Medications - up to 3 most recent administrations Medication Order MAR Action Action Date Dose Rate Site BUpivacaine-EPINEPHrine 0.25% -1:[id number] injection As needed, Starting on Renea 05/19/19 at 1345, Until Renea 05/19/19 at 1548, Intra-Op Given 05/19/2019 1:45 PM CDT 25 mLs Operative Site chlorhexidine (PERIDEX) 0.12 % solution 15 [...] mL, Mouth/Throat, Once, 1 dose, On Renea 7/18/19 at 1230, Patient to perform oral care first. Swish/gargle in mouth for 30 seconds, and then discard prior to going to surgery. If ventilated use saturated swab to clean oral cavity., Pre-Op 1242 (Given - Provid er: Carmen Ron, MIHAI) clindamycin (CLEOCIN) IVPB 900 mg (COMPLETED) 900 mg, Intravenous, at 100 mL/hr, call center analyst, 1 dose, On Renea 05/19/19 at 1230, [...] mg, Intravenous, at 100 mL/hr, call center analyst, 1 dose, On Renea 19 at 1230, Pre-Op 1325 (Given - Provid er: Sumit Brown CRNA)1425 (Infusion Stop Time - Provider: Karrie Benavidez CRNA) Continuous Medication Order 05/17/2019 05/18/2019 05/19/2019 lactated ringers infusion at 10 mL/hr, Intravenous, Continuous, Starting on Renea 19 at 1230, Until Renea 719 at 2042, Pre-Op 1242 (New Bag - Prov ider: Carmen Ron RN)1510 (New Bag - Provider: Sumit Brown CRNA)1537 (Infusion Stop Time - Provider: Sumit Brown CRNA)1832 (Infusion Stop Time - Provider: Den Shafer, MIHAI) PRN Medication Order 05/17/2019 05/18/2019 05/19/2019 BUpivacaine-EPINEPHrine 0.25% -1:[id number] injection (CANCELED) As needed, Starting on Renea 19 at 1345, Until Renea 719 at 1548, Intra-Op 1345 (Given - Provid er: Neel Vera MD) documented in this encounter Care Teams Credit Card Analyst Relationship Specialty Start Date End Date Sabas Kamara MD [address] [place] [phone] PCP - General FAMILY PRACTICE 03/31/19 oYlanda Huston APRN, SECTION BEAMER-C [address] [place] [phone] CARDIOVASCULAR DISEASE 03/31/19 documented as of this encounter
--- OUTSIDE RECORDS SUMMARY | 2024-10-18 01:31 | XMS_ITS | Encounter Summary ---
Author Organization [facility] Address [address] [place] [address]. [place] [address] [place] [address] Care Team Providers Care Insole And Outsole Preparer Name Role Phone Sabas Kamara MD Primary Care Provider [phone] Yolanda Huston APRN MEDICAL TECH-C Unavailable [phone] Encounter Details Date Type Department Care Team (Late st Contact Info) Description 04/14/[address] [facility] [address] [place] [address] Jordan Armando MD [address] [facility] [address] [place] [address] Social History Tobacco Use Types [...] as of this encounter Progress Notes * Jordan Armando MD - 04/14/2019 9:07 AM CDT Contacted patient about the findings of lung nodules and need for further investigations. Will contact Dr. Franklin office to see wether they would like to refer her to pulmonology, otherwise I would make an appointment for her to see Dr. Rosangela. She will need lung biopsy, and I suspect endoscopy procedures. documented in this encounter Plan of Treatment Not on file documented as of this encounter Visit Diagnoses Not on filedocumented in this encounter Care Teams Insole And Outsole Preparer Relationship Specialty Start Date End Date Sabas Kamara MD [address] [place] [phone] PCP - General FAMILY PRACTICE 03/31/19 Yolanda Huston APRN, MEDICAL TECH-C [address] [place] [phone] CARDIOVASCULAR DISEASE 03/31/19 documented as of this encounter
--- OUTSIDE RECORDS SUMMARY | 2024-10-18 01:31 | XMS_ITS | Encounter Summary ---
Author Organization [facility] Address [address] [place] [address]. [place] [address] [place] [address] Care Team Providers Care Prescription Benefit Specialist Name Role Phone Sabas Kamara MD Primary Care Provider [phone] Yolanda Huston APRN, PEST CONTROL OPERATOR-C Unavailable [phone] Reason for Visit * Reason Onset Date Comments Appointment Request 03/31/2019 Encounter Details Date Type Department Care Team (Late st Contact Info) Description 03/31/2019 Telephone [employer] [facility] [facility]ASC[facility] [address] [place] [address] Yolanda Hsuton APRN, PEST CONTROL OPERATOR-C [address] [place] [address] Appointment Request Social History Tobacco Use Types Packs/Day Years Used Date Smoking Tobacco: Never Assessed Comments Unknown Sex and Gender Information Value Date Recorded Sex Assigned at Female 04/15/2019 8:23 AM CDT Legal Sex Female 7:50 PM CDT Gender Identity Female 04/15/2019 8:23 AM CDT Sexual Orientation Not on file documented as of this encounter Progress Notes * Makayla Inman RN - 03/31/2019 3:[address] Sabas Kamara requesting consult for CP/Healthlink/Records requested/reminder letter and worksheet not mailed due to time of apt. Office requesting an apt for tomorrow. Apt made 04/01/19 at 11:30. documented in this encounter Plan of Treatment Not on file documented as of this encounter Visit Diagnoses Not on filedocumented in this encounter Care Teams Prescription Benefit Specialist Relationship Specialty Start Date End Date Sabas Kamara MD [address] [place] [phone] PCP - General FAMILY PRACTICE 03/31/19 Yolanda Huston APRN, PEST CONTROL OPERATOR-C [address] [place] [phone] CARDIOVASCULAR DISEASE 03/31/19 documented as of this encounter
--- OUTSIDE RECORDS SUMMARY | 2024-10-18 01:31 | XMS_ITS | Encounter Summary ---
Author Organization [facility] Address [address] [place] [address]. [place] [address] [place] [address] Care Team Providers Care Meat Curer Name Role Phone Sabas Lomeli MD Primary Care Provider [phone] Yolanda Huston APRN, NP-C Unavailable [phone] Reason for Visit * Auth/Cert Specialty Diagnoses / Procedures Referred By Contac t Referred To Contact Diagnoses Encounter for screening colonoscopy colon cancer screening, abdominal pain Procedures COLONOSCOPY DIAGNOSTIC WITH/WITHOUT SPECIMEN BRUSH/WASH Referral ID Status Reason Start Date Expiration Date Visits Re quested Visits Authorized [id number] 1 1 Encounter Details Date Type Department Care Team (Latest Contact Info) Description 04/18/2019 8:54 AM CDT - 04/18/2019 11:23 AM CDT Hospital En[facility] [place] [address] Hermes Alberto MD Discharge Disposition: Home or Self Care (Routine [...] Written by the doctors and editors at [facility] What is cancer screening???--??Cancer screening is a [...] process is complete. This topic retrieved from [employer] on: Nov 09, 2018. Topic 34605 Version 10.0 Release: 26.5.5 - C27.6 ?2019??[employer] and/or its affiliates.??All rights reserved. Consumer Information [...] that is right for you.The use of [employer] content is governed by the [employer] Terms of Use. ??2019 [employer]. All rights reserved. Copyright ?2019??[employer] and/or its affiliates.??All rights reserved. Patient Education Colon and Rectal Cancer Screening The Basics Written by the doctors and editors at [employer] What is colon and rectal cancer screening???--??Colon [...] finds areas that look abnormal but that stock turner to be healthy. This means that CTC [...] process is complete. This topic retrieved from [employer] on: Nov 09, 2018. Topic 09766 Version 12.0 Release: 26.5.5 - C27.6 ?2019??[employer] and/or its affiliates.??All rights reserved. figure 1: Digestive system This drawing shows the organs in the body that process food. Together these organs are called the digestive system, or digestive tract. As food travels through this system, the body absorbs nutrients and water. Graphic 60857 Version 4.0 figure 2: Colonoscopy During a colonoscopy, you lie on your side and the doctor or nurse puts a thin tube with a camera into your anus (from behind). Then the doctor or nurse advances the tube into the rectum and colon. The camera sends pictures from inside your colon to a television screen. Graphic 21892 Version 5.0 figure 3: Colonoscopy versus sigmoidoscopy [...] of the colon (shown in green). Graphic 87991 Version 5.0 Consumer Information Use and Disclaimer [...] that is right for you.The use of [employer] content is governed by the [employer] Terms of Use. ??2019 [employer]. All rights reserved. Copyright ?2019??[employer] and/or its affiliates.??All rights reserved. documented in [...] the past 30 days. After examining Ashu Che Domenic, no change has occurred in the patient's condition since the H&P was completed. Informed Consent Discussion: Risks, benefits, alternatives as well as the consequences of not performing the surgery/procedure were discussed with the patient and/or family/personal videotape sales representative. Questions were answered and the patient/family/personal videotape sales representative verbalized understanding and desires to [...] file Gets together: Not on file Attends confucianism service: Not on file Active member of [...] * Pathology (04/18/2019 12:46 PM CDT) PATHOLOGY [facility] ? Department of Laboratory Medicine ?[address] [facility] ?[place] [address] ? , extension [phone] ? Pathology Report ? Surgical Pathology Report Name: ASHU SHETH ?Specimen #: [id number] Age: 12 1965 (Age: 53) ? Location: [facility] Sex: F ?Procedure Date: 04/18/2019 Hospital #: [id number] ?Date Received: 04/19/2019 Date Reported: 04/20/2019 Provider: [...] Electronically Signed Out ? Beny Alexandre M.D. [facility] Tissue specimen (specimen) COLON STRUCTURE / Unknown 04/18/2019 10:21 AM CDT Comment:Removed with snare Hermes Alberto MD PATHOLOGY/CYTOLOGY ORDERABLES Final Result [facility] [address] [place] [address], [place] [phone] [id number] * COLONOSCOPY (04/18/2019 10:28 AM CDT) Hermes [...] at 10 mL/hr, Intravenous, Continuous, Starting on 04/18/19 at 0930, Until Renea 04/21/19 at 1200, [...] PACU documented in this encounter Care Teams Meat Curer Relationship Specialty Start Date End Date Sabas Lomeli MD [address] [place] [phone] PCP - General FAMILY PRACTICE 03/31/19 Yolanda Huston APRN, MALT SPECIFICATIONS CONTROL ASSISTANT-C [address] [place] [phone] CARDIOVASCULAR DISEASE 03/31/19 documented as of this encounter
--- OUTSIDE RECORDS SUMMARY | 2024-10-18 01:31 | XMS_ITS | Encounter Summary ---
Author Organization [facility] Address [address] [place] [address]. [place], [place] [address] [place] [address] Care Team Providers Care Supervisor Cd Area Name Role Phone Sabas Kamara MD Primary Care Provider [phone] Yolanda Huston APRN, ANGLESMITH HELPER-C Unavailable [phone] Reason for Visit * Reason Onset Date Comments Results 04/06/2019 Encounter Details Date Type Department Care Team (Late st Contact Info) Description 04/06/2019 Telephone [employer] CARDIOVASCULAR [facility] [address] [place] [address] Yolanda Huston APRN, ANGLESMITH HELPER-C [address] [place] [address] Results Social History Tobacco Use Types Packs/Day [...] Progress Notes * Raphael Marques LPN - 04/06/2019 12:54 PM CDT Spoke to Gabi again, let her know she could get another lab (d dimer) at Dr. Franklin office when she comes back on Thursday. I also let her know that with the monitor that she is wearing, we get a daily reports, so if something was going on, someone in our office would be notified, so it is reassuring that we have not been. I let her know that some of this could be realated to anxiety and/or GI issues. She stated that her son was killed by a drunk party bus driver 6 years ago now, so she could be having some anxiety from that. I told her she should try to relax and enjoy her trip and call with any issues or further questions. Tamara v/u, nothing further at this time. Notes recorded by Raphael Marques LPN on 04/06/2019 at 10:09 AM CDT Spoke to Ms. Sheth, she is very anxious, she is still having the cp, back pain, pain in her jaw, tingling in her arm and feels like it is hard to breath. ??She has been checking her b/p and hr for the last few days : ??April 03, evening 133/91, 93 - April 04, morning 124/77, 78 evening 122/78, 102 - April 05 morning 129/80, 74. ??I asked pt what she was doing when her hr was at 102, stated she wasn't doing anything, she had not just exerted herself or anything like that. ??She got upset and stated this cp is waking her up at night and her back is hurting. ??She wanted to know if she could take anything for the pain, stated that she had naproxen with her. ??I let her know that would be ok to take. ??Let her know I would speak to you about this and we would look over results again and get back to her with any further recommendations. ??V/u, no further questions at this time. ------ Notes recorded by Yolanda Huston APRN, ANGLESMITH HELPER-C on 04/06/2019 at 9:12 AM CDT I reviewed Ms. Sheth's recent echocardiogram which demonstrated a preserved left ventricular systolic function with an LVEF of 62%, left ventricular diastolic function was mildly abnormal with grade1 impaired relaxation, right ventricular size and systolic function was normal, there was a trace amount of mitral regurgitation and tricuspid regurgitation, no aortic stenosis, mitral valve appearedstructurally normal, and tricuspid valve appeared structurally normal. Her mild left ventricular diastolic dysfunction could simply be caused from aging or having elevated blood pressures. I am recommending that she monitor her blood pressure twice daily. We would ideally like her blood pressure to be consistently below 140/80 mmHg. Overall, her echocardiogram resultsare reassuring. Please inform patient of results. We will await the results of her body guardian. documented in this encounter Plan of Treatment Not on file documented as of this encounter Visit Diagnoses Not on filedocumented in this encounter Care Teams Supervisor Cd Area Relationship Specialty Start Date End Date Sabas Kamara MD [address] [place] [phone] PCP - General FAMILY PRACTICE 03/31/19 Yolanda Huston APRN, ANGLESMITH HELPER-C [address] [place] [phone] CARDIOVASCULAR DISEASE 03/31/19 documented as of this encounter
--- OUTSIDE RECORDS SUMMARY | 2024-10-18 01:31 | XMS_ITS | Encounter Summary ---
Author Organization [facility] Address [address] [place] [address]. [place] [address] [place] [address] Care Team Providers Care Ruffling Machine Operator Name Role Phone Sabas Kamara MD Primary Care Provider [phone] Yolanda Huston APRN, YARN WEIGHER-C Unavailable [phone] Encounter Details Date Type Department Care Team (Late st Contact Info) Description 02/06/2020 Orders Only [facility] Inpatient Medical Oncology [address] [place], [place] [address] Neel Vear MD [address] [address] [place], [place] [address] Social History Tobacco Use Types Packs/Day Years [...] site documented in this encounter Care Teams Ruffling Machine Operator Relationship Specialty Start Date End Date Sabas Kamara MD [address] [place] [address] PCP - General FAMILY PRACTICE 03/31/19 Yolanda Huston APRN, YARN WEIGHER-C [address] [place] [phone] CARDIOVASCULAR DISEASE 03/31/19 documented as of this encounter
--- OUTSIDE RECORDS SUMMARY | 2024-10-18 01:31 | XMS_ITS | Clinical Summary ---
Author Organization [facility] Address [address] [place] [address]. [place] [address] [place] [address] Care Team Providers Care Utilities Service Investigator Name Role Phone Sabas Kamara MD Primary Care Provider Yolanda Huston APRN MANAGER [place]-C Unavailable [phone] Allergies Active Allergy Reactions Criticality Noted Date Comments Penicillins Rash Low 04/01/2019 Quinine Derivatives Swelling 04/01/2019 Sulfa Antibiotics Swelling 04/01/2019 Medications buPROPion XL 150 MG 24 hr tabletIndicatio ns:mood Take 150 mg by mouth 3 (three) times a day. Active oxybutynin XL 10 MG 24 hr tabletIndicatio ns:bladder Take 10 mg by mouth daily. Active estradiol 1 MG tabletIndicatio ns:hormone Take 1 mg by mouth nightly at bedtime. Active calcium citrate-vitamin D 315 MG-250 UNIT 315-250 MG-UNIT Tab tabletIndicatio ns:supplement Take 1 tablet by mouth 2 (two) times daily as needed. Active Multiple Vitamins-Minera ls (MULTIVITAMIN ADULT OR)Indications: supplement Take 1 tablet by mouth daily. Active ropinirole 1 MG tabletIndicatio ns:restless legs Take 1 mg by mouth nightly at bedtime. Active celecoxib 200 MG capsule Take 1 capsule by mouth daily. 04/06/2020 Active traZODone 50 MG tablet Take 1 tablet by mouth nightly. 02/04/2020 Active Active Problems Problem Noted Date Diagnosed Date Hyperlipidemia 05/02/2020 Impaired fasting glucose 05/02/2020 Tubular adenoma of rectum 04/29/2019 Hyperplastic rectal polyp 04/29/2019 Multiple pulmonary nodules d etermined by computed tomography of lung 04/15/2019 Generalized osteoarthritis of multiple sites Urinary frequency 04/15/2019 Spondylosis 04/15/2019 Depression 04/15/2019 Dysmenorrhea 04/15/2019 Thyroid nodule 04/15/2019 Overview (04/15/2019): Per patient Chest pain of uncertain etiology 04/04/2019 Palpitations 04/04/2019 Resolved Problems Problem Noted Date Diagnosed Date Resolved Date S/P colonoscopy 04/29/2019 05/02/2020 Encounter for postoperative care 04/29/2019 05/02/2020 Encounter for screening colonoscopy 04/15/2019 04/29/2019 Family History Medical History Relation Comments Heart Disease Father Open Heart Father Stent Cardiac Sister Relation Status Comments Father Mother Alive Sister Social History Tobacco Use Types Packs/Day Years [...] AM CDT Sexual Orientation Not on file Last Filed Vital Signs Vital Sign Reading Time Taken Comments Blood Pressure 130/83 05/02/2020 3:49 PM CDT Pulse 81 05/02/2020 3:49 PM CDT Temperature 36 ??C (96.8 ??F) 05/19/2019 3:38 PM CDT Respiratory Rate 18 05/19/2019 5:12 PM CDT Oxygen Saturation 99% 05/19/2019 5:12 PM CDT Inhaled Oxygen Concentration - - Weight 65.8 kg (145 lb) 05/02/2020 3:49 PM CDT Height 167.6 cm (5' 6 ) 05/02/2020 3:49 PM CDT Body Mass Index 23.4 05/02/2020 3:49 PM CDT Plan of Treatment Health Maintenance Due Date Last Done Comments Annual Physical 1966 Hepatitis C 1981 DTaP, Tdap and Td Vaccines ( 1 - Tdap) 1982 Mammogram Screening 2003 Zoster Vaccines (1 of 2) 2013 RSV Immunization or 60+ Years (1 - 1-dose 60+ series) 2023 COVID-19 Vaccine ( - 2023-2 5 season) 2024 Influenza Adult (#1) 2024 Colorectal Cancer Screening Colonoscopy (10 Years) 04/18/2029 04/18/2019 Meningococcal Vaccine Aged Out No poonam zachary eligible based on patient's age to complete this topic Pneumococcal Vaccine: Pediat rics (0 to 5 Years) and At-Risk Patients (6 to 64 Years) Aged Out No longer eligi ble based on patient's age to complete this topic RSV Immunizations Under 20 Months Aged Out No longer eligible based on patient's age to complete this topic Procedures Procedure Name Priority Date/Time Associated Diagnosis Comments COLONOSCOPY 04/18/2019 10:28 AM CDT from Last 3 Months or Most Recently Relevant to Health Maintenance Results * COLONOSCOPY (04/18/2019 10:28 AM CDT) Henrry Alberto MD GI PROCEDURE ORDERA BLES Final Result from Last 3 Months or Most Recently Relevant to Health Maintenance Insurance Care Teams Utilities Service Investigator Relationship Specialty Start Date End Date Sabas Kamara MD [address] [place] [phone] PCP - General FAMILY PRACTICE 03/31/19 Yolanda Huston APRN, MANAGER [place]-C [address] [place] [phone] CARDIOVASCULAR DISEASE 03/31/19
--- OUTSIDE RECORDS SUMMARY | 2024-10-18 01:31 | XMS_ITS | Encounter Summary ---
Author Organization [facility] Address [address] [place] [address]. [place] [address] [place] [address] Care Team Providers Care Horse Stud Manager Name Role Phone Sabas Kamara MD Primary Care Provider [phone] Yolanda Huston APRN, MANAGER COMMERCIAL REAL ESTATE-C Unavailable [phone] Reason for Visit * Reason Onset Date Comments Lab Results 04/12/2019 Encounter Details Date Type Department Care Team ([facility] st Contact Info) Description 04/12/2019 Telephone [employer] [facility] [place] [facility] [employer] AT [facility] [address] [place] [address] Yolanda Huston APRN, MANAGER COMMERCIAL REAL ESTATE-C [address] [place] [address] Lab Results Social History Tobacco [...] Progress Notes * Raphael Marques LPN - 04/12/2019 10:[address] [place] office called, they faxed the d-dimer lab and wanted to make sure that is all that was needed at this time. Yolanda, let me know if you do not get this result. Thanks. documented in this encounter Plan of Treatment Not on file documented as of this encounter Visit Diagnoses Not on filedocumented in this encounter Care Teams Horse Stud Manager Relationship Specialty Start Date End Date Sabas Kamara MD [address] [place] [phone] PCP - General FAMILY PRACTICE 03/31/19 Yolanda Huston APRN, MANAGER COMMERCIAL REAL ESTATE-C [address] [place] [phone] CARDIOVASCULAR DISEASE 03/31/19 documented as of this encounter
--- OUTSIDE RECORDS SUMMARY | 2024-10-18 01:31 | XMS_ITS | Encounter Summary ---
Author Organization [facility] Address [address] [place] [address]. [place] [address] [place] [address] Care Team Providers Care Dealer Relationship Manager Name Role Phone Sabas Kamara MD Primary Care Provider [phone] Yolanda Huston APRN, NP-C Unavailable [phone] Encounter Details Date Type Department Care Team (Late st Contact Info) Description 05/09/2019 Orders Only [facility] AT [facility] [address] [place] [address] Yolanda Huston APRN, OPHTHALMIC TECHNICIAN-C [address] [place] [address] Social History Tobacco Use Types [...] Procedure Name Priority Date/Time Associated Diagnosis Comments MOBILE CONTINUOUS TELEMETRY Routine 04/01/2019 Syncope, unspecified syncope type documented in this encounter Results * MOBILE CONTINUOUS TELEMETRY (04/01/2019) Yolanda Huston APRN, YENNIFER CV VASCULAR ORDERABLES Final Result documented in this encounter Visit Diagnoses Diagnosis Syncope, unspecified syncope type documented in this encounter Care Teams Dealer Relationship Manager Relationship Specialty Start Date End Date Sabas Kamara MD [address] [place] [phone] PCP - General FAMILY PRACTICE 03/31/19 Yolanda Huston APRN, OPHTHALMIC TECHNICIAN-C [address] [place] [phone] CARDIOVASCULAR DISEASE 03/31/19 documented as of this encounter
--- OUTSIDE RECORDS SUMMARY | 2024-10-18 01:31 | XMS_ITS | Encounter Summary ---
Author Organization [facility] Address [address] [place] [address]. [place], [place] [address] [place] [address] Care Team Providers Care Shearing Supervisor Name Role Phone Sabas Kamara MD Primary Care Provider [phone] Yolanda Huston APRN, MANUFACTURING OPERATOR-C Unavailable [phone] Reason for Visit * Reason Onset Date Comments Results 05/09/2019 Encounter Details Date Type Department Care Team (Late st Contact Info) Description 05/09/2019 Telephone [facility] 1ST FLOOR [address] [place] [address] Yolanda Huston APRN, MANUFACTURING OPERATOR-C [address] [place] [address] Results Social History Tobacco Use [...] Progress Notes * Raphael Marques LPN - 05/09/2019 9:40 AM CDT Spoke to Tamara, she is aware that her BG did not show any arrhythmias - some PVC's and tachycardia, but nothing to do at this time. Tamara v/u, no further questions. * Yolanda Huston APRN, NP-C - 05/09/2019 8:32 AM CDT Ms. Sheth's body guardian revealed that her symptoms correlated with normal sinus rhythm and sinustachycardia. No sustained atrial or ventricular arrhythmia is present during symptom. There were rare occurrences of PVC's and PAC's. No further recommendations at this time. Please inform patient ofresults. Thank you. documented in this encounter Plan of Treatment Not on file documented as of this encounter Visit Diagnoses Not on filedocumented in this encounter Care Teams Shearing Supervisor Relationship Specialty Start Date End Date Sabas Kamara MD [address] [place] [phone] PCP - General FAMILY PRACTICE 03/31/19 Yolanda Huston APRN, NP-C [address] [place] [phone] CARDIOVASCULAR DISEASE 03/31/19 documented as of this encounter
--- OUTSIDE RECORDS SUMMARY | 2024-10-18 01:31 | XMS_ITS | Encounter Summary ---
Author Organization [facility] Address [address] [place] [address]. [place] [address] [place] [address] Care Team Providers Care Casino Shift Manager Name Role Phone Unavailable Primary Care Provider Unavailabl e Encounter Details Date Type Department Care Team (Late st Contact Info) Description 09/10/[address] [facility] [address] [facility] [place] [address] Sabas Kamara MD [address] [place] [phone] Social History Tobacco Use Types Packs/Day Years [...]
--- OUTSIDE RECORDS SUMMARY | 2024-10-18 01:31 | XMS_ITS | Encounter Summary ---
Author Organization [facility] Address [address] [place] [address]. [place] [address] [place] [address] Care Team Providers Care Rough Rounder Name Role Phone Sabas Kamara MD Primary Care Provider [phone] Yolanda Huston APRN, NP-C Unavailable [phone] Reason for Referral * Imaging (Routine) - Closed Specialty Diagnoses / Procedures Referred By Contac t Referred To Contact RADIOLOGY Diagnoses Shortness of breath Elevated d-dimer Procedures CTA CHEST Jordan Armando MD [address] [place] [address] Phone: tel: fax: Referral ID Status Reason Start Date Expiration Date Visits Re quested Visits Authorized [id number] Closed 04/13/2019 05/13/2020 1 1 Encounter Details Date Type Department Care Team (Late st Contact Info) Description 04/13/2019 Orders Only [facility] [address] [place] [address] Jordan Armando MD [address] [place] [address] Social History Tobacco Use Types [...] documented as of this encounter Results * CTA CHEST (04/13/2019) Anatomical Region Laterality Modality Chest Computed Tomogra phy Jordan Armando MD CT Final Re sult documented in this encounter Visit Diagnoses Diagnosis Shortness of breath- Primary Elevated d-dimer Abnormal coagulation profile documented in this encounter Care Teams Rough Rounder Relationship Specialty Start Date End Date Sabas Kamara MD [address] [place] [phone] PCP - General FAMILY PRACTICE 03/31/19 Yolanda Huston APRN, APPARATUS OPERATOR-C [address] [place] [phone] CARDIOVASCULAR DISEASE 03/31/19 documented as of this encounter
--- OUTSIDE RECORDS SUMMARY | 2024-10-18 01:31 | XMS_ITS | Encounter Summary ---
Author Organization [facility] Address [address] [place] [address]. [place] [address] [place] [address] Care Team Providers Care Financial Sales Manager Name Role Phone Unavailable Primary Care Provider Unavailabl e Encounter Details Date Type Department Care Team (Late st Contact Info) Description 07/28/1996 Abstract [facility] [address] [place] [address] , Generic Conversion, Social History Tobacco Use [...]
--- OUTSIDE RECORDS SUMMARY | 2024-10-18 01:31 | XMS_ITS | Encounter Summary ---
Author Organization [facility] Address [address] [place] [address]. [place] [address] [place] [address] Care Team Providers Care Trapeze Performer Name Role Phone Sabas Kamara MD Primary Care Provider [phone] Yolanda Huston APRN, NP-C Unavailable [phone] Encounter Details Date Type Department Care Team (Latest Contact Info) Description 05/11/2019 2:50 PM CDT - 05/11/2019 11:59 PM CDT Hospital Encounter [facility] [address] [facility] [place] [address] Mirian Mandujano MD [address] [place] [address] Discharge Disposition: Home or Self Care (Routine [...] day. 05/02/2020 documented as of this encounter Plan of Treatment Not on file documented as of this encounter Procedures Procedure Name Priority Date/Time Associated Diagnosis Comments COMPREHENSIVE METABOLIC PANEL Routine 05/11/2019 3:28 PM CDT Multiple lung nodules on CT IMMUNOASSAY, TUMOR ANTIGEN, CA 125 Routine 05/11/2019 3:28 PM CDT Multiple lung nodules on CT Lower abdominal pain CARCINOEMBRYONIC ANTIGEN Routine 019 3:28 PM CDT Multiple lung nodules on CT Lower abdominal pain CBC W/DIFF AUTOMATED Routine 05/11/2019 3:28 PM CDT Multiple lung nodules on CT documented in this encounter Results * IMMUNOASSAY, TUMOR ANTIGEN, CA 125 (05/11/2019 3:28 PM CDT) CA 125 5.5 0.0 - 35.0 U/mL 05/12/2019 2:20 PM CDT [facility] 05/11/2019 3:28 PM CDT us Mirian Mandujano MD LABORATORY Final Result Performing Organization Address [facility]/ZIP Co de Phone Number [facility] [address] [place] [address], [place] [phone] * CARCINOEMBRYONIC ANTIGEN (05/11/2019 3:28 PM CDT) CEA 1.6 0.0 - 5.0 NG/ML 05/12/2019 2:07 PM CDT [facility] 05/11/2019 3:28 PM CDT us Mirian Mandujano MD LABORATORY Final Result Performing Organization Address [facility] de Phone Number [facility] [address] [place] [address], [place] [phone] * (ABNORMAL) COMPREHENSIVE METABOLIC PANEL (05/11/2019 3:28 PM CDT) SODIUM S/P/B 139 136 - 145 MMOL/L 05/11/2019 3:53 PM CDT [facility] POTASSIUM S/P/B 4.0 3.5 - 5.1 MMOL/L 05/11/2019 3:53 PM CDT [facility] CHLORIDE S/P/B 102 98 - 107 MMOL/L 05/11/2019 3:53 PM CDT [facility] CO2 28.6 21.0 - 32.0 MMOL/L 05/11/2019 3:53 PM CDT [facility] GLUCOSE 90 70 - 140 MG/DL 05/11/2019 3:53 PM CDT [facility] BUN 15 6 - 24 MG/DL 05/11/2019 3:53 PM CDT [facility] CREATININE S/P/B 1.06(H) 0.55 - 1.02 MG/DL 05/11/2019 3:53 PM CDT [facility] CALCIUM S/P/B 8.7 8.4 - 10.5 MG/DL 05/11/2019 3:53 PM CDT [facility] BILIRUBIN TOTAL S/P/B 0.3 0.2 - 1.0 MG/DL 05/11/2019 3:53 PM T [facility] ALKALINE PHOSPHATASE S/P/B 91 41 - 108 U/L 05/11/2019 3:53 PM [facility] AST 16 15 - 37 U/L 05/11/2019 3:53 PM T [facility] ALT 20 14 - 59 U/L 05/11/2019 3:53 PM [facility] TOTAL PROTEIN S/P/B 7.6 6.4 - 8.2 G/DL 05/11/2019 3:53 PM T [facility] ALBUMIN S/P/B 3.7 3.4 - 5.0 G/DL 05/11/2019 3:53 PM [facility] ANION GAP 8.4 5.0 - 15.0 MMOL/L 05/11/2019 3:53 PM [facility] OSMOLALITY (CALC) 288 MOSM/KG 05/11/2019 3:53 PM [facility] Comment:REFERENCE RANGE NOT ESTABLISHED EGFR NON-AFR. AMER. 59(L) >89 ML/MIN/1 .73 M2 05/11/2019 3:53 PM [facility] EGFR AFR. AMER. 68(L) >89 ML/MIN/1 .73 M2 05/11/2019 3:53 PM [facility] GFR NOTES THE ESTIMATED GFR IS CALCULATED USING THE 2009 CKD-EPI EQUATION. THE FOLLOWING CATEGORIES FOR GRADING RENAL FUNCTION ARE RECOMMENDED BY THE INTERNATIONAL SOCIETY OF NEPHROLOGY (KDIGO 2012 CLINICAL PRACTICE GUIDELINE). 05/11/2019 3:53 PM [facility] Comment: G1,NORMAL OR HIGH: >89 ml/min/1.73 m2 G2,MILDLY DECREASED: 60-89 ml/min/1.73 m2 G3A,MILDLY TO MODERATELY DECREASED: 45-59 ml/min/1.73 m2 G3B,MODERATELY TO SEVERELY DECREASED: 30-44 ml/min/1.73 m2 G4,SEVERELY DECREASED: 15-29 ml/min/1.73 m2 G5,KIDNEY FAILURE: <15 ml/min/1.73 m2 05/11/2019 3:28 PM CDT Mirian Mandujano MD LABORATORY Final Result [facility] [address] [employer] [place] [address], * (ABNORMAL) CBC W/DIFF AUTOMATED (05/11/2019 3:28 PM CDT) WBC 8.7 4.5 - 10.8 x10'3/uL 05/11/2019 3:34 PM CDT [facility] RBC 4.41 4.10 - 5.40 x10'6/uL 05/11/2019 3:34 PM CDT [facility] HGB 13.5 12.0 - 16.0 G/DL 05/11/2019 3:34 PM CDT [facility] HCT 40.2 36.0 - 47.0 % 05/11/2019 3:34 PM CDT [facility] MCV 91.2 78.0 - 100.0 FL 05/11/2019 3:34 PM CDT [facility] MCH 30.6 27.0 - 31.0 PG 05/11/2019 3:34 PM CDT [facility] MCHC 33.6 33.0 - 36.0 G/DL 05/11/2019 3:34 PM CDT [facility] RDW 12.7 11.5 - 14.5 % 05/11/2019 3:34 PM CDT [facility] PLT 304 150 - 350 x10'3/uL 05/11/2019 3:34 PM CDT [facility] MPV 11.3(H) 7.4 - 10.4 FL 05/11/2019 3:34 PM CDT [facility] DIFFERENTIAL COMMENT NORMAL REFERENCE RANGE NOT ESTABLISHED FOR THE PROPORTIONAL LEUKOCYTE DIFFERENTIAL. 05/11/2019 3:34 PM CDT [facility] SEG NEUTROPHILS 60.6 % 9 3:34 PM CDT [facility] LYMPHOCYTES 30.7 % 05/11/2019 3:34 PM CDT [facility] MONOCYTES 7.8 % 05/11/2019 3:34 PM CDT [facility] EOSINOPHILS 0.0 % 05/11/2019 3:34 PM CDT [facility] BASOPHILS 0.7 % 05/11/2019 3:34 PM CDT [facility] IMMATURE GRANS % 0.2 % 05/11/20 19 3:34 PM CDT [facility] NRBC 0.0 % 05/11/2019 3:34 PM CDT [facility] ABS. NEUTROPHILS 5.27 1.60 - 8.30 x10'3/uL 05/11/2019 3:34 PM CDT [facility] ABS. LYMPHOCYTES 2.67 0.80 - 4.70 x10'3/uL 05/11/2019 3:34 PM CDT [facility] ABS. MONOCYTES 0.68 0.00 - 1.50 x10'3/uL 05/11/2019 3:34 PM CDT [facility] ABS. EOSINOPHILS 0.00 0.00 - 0.40 x10'3/uL 05/11/2019 3:34 PM CDT [facility] ABS. BASOPHILS 0.06 0.00 - 0.20 x10'3/uL 05/11/2019 3:34 PM CDT [facility] ABS. IMMATURE GRANULOCYTES 0.02 0.00 - 0.03 x10'3/uL 05/11/2019 3:34 PM CDT [facility] ABS. NUCLEATED RBC'S 0.00 0.00 x10'3/uL 05/11/2019 3:34 PM CDT [facility] 05/11/2019 3:28 PM CDT us Mirian Mandujano MD LABORATORY Final Result [facility] [address] [place] [address], documented in this encounter Visit Diagnoses Diagnosis Multiple lung nodules on CT Lower abdominal pain Abdominal pain, other specified site documented in this encounter Care Teams Trapeze Performer Relationship Specialty Start Date End Date Sabas Kamara MD [address] [place] [phone] PCP - General FAMILY PRACTICE 03/31/19 Yolanda Huston APRN, TRAVEL GUIDE-C [address] [place] [phone] CARDIOVASCULAR DISEASE 03/31/19 documented as of this encounter
--- OUTSIDE RECORDS SUMMARY | 2024-10-18 01:31 | XMS_ITS | Encounter Summary ---
Author Organization [facility] Address [address] [place] [address]. [place], [place] [address] [place] [address] Care Team Providers Care Slot Floorperson Name Role Phone Sabas Kamara MD Primary Care Provider [phone] Yolanda Huston APRN, SENIOR BEHAVIORAL SCIENTIST-C Unavailable [phone] Encounter Details Date Type Department Care Team (Late st Contact Info) Description 04/01/2019 Orders Only [facility] [address] [place] [address] Yolanda Huston APRN, SENIOR BEHAVIORAL SCIENTIST-C [address] [place] [address] Social History Tobacco Use Types [...] as of this encounter Visit Diagnoses Diagnosis Chest pain, unspecified type- Primary Shortness of breath documented in this encounter Care Teams Slot Floorperson Relationship Specialty Start Date End Date Sabas Kamara MD [address] [place] [address] PCP - General FAMILY PRACTICE 03/31/19 Yolanda Huston APRN, SENIOR BEHAVIORAL SCIENTIST-C [address] [place] [phone] CARDIOVASCULAR DISEASE 03/31/19 documented as of this encounter
--- OUTSIDE RECORDS SUMMARY | 2024-10-18 01:31 | XMS_ITS | Encounter Summary ---
Author Organization [facility] Address Formerly [facility] [place] [address] [place] [address] Care Team Providers Care Independent Freight Agent Name Role Phone Sabas Lomeli MD Primary Care Provider [phone] Yolanda Huston APRN PUBLIC BATH ATTENDANT-C Unavailable [phone] Reason for Referral * Surgical (Routine) - Closed Specialty Diagnoses / Procedures Referred By Ayala killian Referred To Contact Diagnoses Encounter for screening colonoscopy Procedures Case request operating room: COLONOSCOPY DIAGNOSTIC WITH/WITHOUT SPECIMEN BRUSH/WASH Hermes Alberto MD [facility] OR [address] [place] [address] Phone: tel: Referral ID Status Reason Start Date Expiration Date Visits Re quested Visits Authorized [id number] Closed 04/15/2019 05/15/2020 1 1 Reason for Visit * Reason Comments New Patient Consult For Colonoscopy patient presents to clinic as a referral from her PCP for colon cancer screening. patient recently diagnosed with nodule of thyroid and multiple pulmonary nodules and PCP is concerned about colon cancer. Patient states she fluctuates between diarrhea and constipation but denies family history of colon cancer. She has sharp RLQ abdominal pain that comes and goes. * Consultation (Routine) - Closed Specialty Diagnoses / Procedures Referred By Ayala killian Referred To Contact SURGERY Diagnoses screening colonoscopy Procedures NEW PATIENT Sabas Lomeli MD [address] [place] [phone] Phone: tel: fax: Hermes Alberto MD Referral ID Status Reason Start Date Expiration Date V isits Requested Visits Authorized [id number] Closed Consultation 04/15/2019 04/15/2020 100 100 Encounter Details Date Type Department Care Team (Late st Contact Info) Description 04/15/2019 1:40 PM CDT Office Visit [facility] [address] [place] [address], [address] [place] [phone] Hermes Alberto MD New Patient; Consult For Colonoscopy (patient presents to clinic as a referral from her PCP for colon cancer screening. patient recently diagnosed with nodule of thyroid and multiple pulmonary nodules and PCP is concerned about colon cancer. Patient states she fluctuates between diarrhea and constipation but denies family history of colon cancer. She has sharp RLQ abdominal pain that comes and goes.) Social History Tobacco Use Types Packs/Day Years [...] Sign Reading Time Taken Comments Blood Pressure 156/90 04/15/2019 1:58 PM CDT Pulse 75 04/15/2019 1:58 PM CDT Temperature 36 ??C (96.8 ??F) 04/15/2019 1:58 PM CDT Respiratory Rate - - Oxygen Saturation - - Inhaled Oxygen Concentration - - Weight 67.3 kg (148 lb 5.9 oz) 04/15/2019 1:58 P M CDT Height 167.6 cm (5' 6 ) 04/15/2019 1:58 PM CDT Body Mass Index 23.95 04/15/2019 1:58 PM CDT documented in this encounter Progress Notes * Hermes Alberto MD - 04/15/2019 1:40 PM [...] file Gets together: Not on file Attends oriental orthodox service: Not on file Active member of [...] documented in this encounter Plan of Treatment Scheduled Orders Name Type Priority Associated Diagnoses Orde r Schedule Case request operating room: COLONOSCOPY DIAGNOSTIC WITH/WITHOUT SPECIMEN BRUSH/WASH Case Request Routine Encounter for screening colonoscopy Once for 1 Occurrences starting 04/15/2019 until 04/15/2019 documented as of this encounter Visit Diagnoses Diagnosis Encounter for screening colonoscopy- Primary Special screening for malignant neoplasms, colon documented in this encounter Care Teams Independent Freight Agent Relationship Specialty Start Date End Date Sabas Lomeli MD [address] [place] [phone] PCP - General FAMILY PRACTICE 03/31/19 Yolanda Huston APRN, PUBLIC BATH ATTENDANT-C [address] [place] [phone] CARDIOVASCULAR DISEASE 03/31/19 documented as of this encounter
--- OUTSIDE RECORDS SUMMARY | 2024-10-18 01:31 | XMS_ITS | Encounter Summary ---
Author Organization [facility] Address [address] [place] [address]. [place] [address] [place] [address] Care Team Providers Care Driver Wheelchair Name Role Phone Sabas Kamara MD Primary Care Provider [phone] Yolanda Huston APRN, CARBONATION EQUIPMENT OPERATOR-C Unavailable [phone] Reason for Visit * Reason Onset Date Comments Results 04/04/2019 Encounter Details Date Type Department Care Team ([facility] st Contact Info) Description 04/04/2019 Telephone [email or web address] CARDIOVASCULAR [facility] [address] [place] [address] Yolanda Huston APRN, CARBONATION EQUIPMENT OPERATOR-C [address] [place] [address] Results Social History Tobacco Use [...] Progress Notes * Raphael Marques LPN - 04/04/2019 12:00 PM CDT Spoke to Gabi, let her know her labs and stress test were both ok - will await echo results and call her back with those. She is still wearing the monitor. V/u, no further questions. documented in this encounter Plan of Treatment Not on file documented as of this encounter Visit Diagnoses Not on filedocumented in this encounter Care Teams Driver Wheelchair Relationship Specialty Start Date End Date Sabas Kamara MD [address] [place] [phone] PCP - General FAMILY PRACTICE 03/31/19 Yolanda Huston APRN, CARBONATION EQUIPMENT OPERATOR-C [address] [place] [phone] CARDIOVASCULAR DISEASE 03/31/19 documented as of this encounter
--- OUTSIDE RECORDS SUMMARY | 2024-10-18 01:31 | XMS_ITS | Encounter Summary ---
Author Organization [facility] Address [facility] [facility] [place] [address] [place] [address] Care Team Providers Care Cash Register Repairer Name Role Phone Sabas Lomeli MD Primary Care Provider [phone] Yolanda Huston APRN, NP-C Unavailable [phone] Reason for Referral * Imaging (Routine) - Closed Specialty Diagnoses / Procedures Referred By Contac t Referred To Contact RADIOLOGY Diagnoses Shortness of breath Procedures USE ECHOCARDIOGRAM Yolanda Huston APRN, NP-C [address] [place] [address] Phone: tel: fax: [facility] [address] [place] [address] Phone: tel: fax: Referral ID Status Reason Start Date Expiration Date Visits Re quested Visits Authorized [id number] Closed 04/01/2019 05/01/2020 1 1 Reason for Visit * Reason Comments Chest Pain Encounter Details Date Type Department Care Team (Late st Contact Info) Description 04/01/2019 11:30 AM CDT Office Visit [facility] [address] [place] [phone] Yolanda Huston APRN, NP-C [address] [place], [place] [phone] Chest Pain Social History Tobacco Use Types Packs/Day Years [...] Sign Reading Time Taken Comments Blood Pressure 170/88 04/01/2019 11:34 AM CDT Pulse 68 04/01/2019 11:34 AM CDT Temperature - - Respiratory Rate 16 04/01/2019 11:34 AM CDT Oxygen Saturation - - Inhaled Oxygen Concentration - - Weight 67.3 kg (148 lb 6.4 oz) 04/01/2019 11:34 AM CDT Height 167.6 cm (5' 6 ) 04/01/2019 11:34 AM CDT Body Mass Index 23.95 04/01/2019 11:34 AM CDT documented in this encounter Patient Instructions * Patient Instructions* Raphael Marques LPN - 04/01/2019 11:30 AM CDT This is a reminder that you have a CT coronary angiogram with FFR test on 04/04/19at 12:30p at [facility], [address] [facility], [facility]. Instructions: 1. Drink plenty of fluids the day before your test. 2. Have nothing to eat or drink for 2 hours before your test 3. Drink 2 full glasses of water 2 hour prior to your test. 4. You will be provided a prescription for 3 pills, Metoprolol Tartrate 50mg. A. Take 2 of these tabs 2 hours prior to the scheduled time of your test with the glasses of water mentioned above. B. Bring the 3rd tab to your test. You may or may not have to take the third one. 5. On the day of your test take all of your medications except for lasix (hydrochlorthiazide or anyother diuretic), Viagra, Cialis, Levitra, Metformin, or any other diabetic medication that containsmetformin) 6. If you use inhalers, bring them with you. Do not use inhalers for 4 hours prior to your test. 7. No over the counter decongestants 24 hours prior to test. 8. If you are Diabetic or 65 years or older, you will need to have a current Basic Metabolic Panel blood test (within 30 days of your test). 9. Women age 55 and younger will need a urine test the day of the procedure at [facility]. 10. An IV will be inserted in your arm and EKG patches will be put on your chest. documented in this encounter Progress Notes * Yolanda Huston APRN, MINING MANAGER-C - 04/01/2019 11:30 AM CDT From the office of Dr. Armani Sheth MD Dear Dr. SABAS LOMELI MD: Your patient, Gabi Sheth was seen on 04/01/2019 at the [facility]. Reason for Visit: Chest Pain History of Present Illness: I saw Ms. Sheth in consultation today for chest pain and palpitations. Ms. Sheth is a pleasant 53-year-old year old woman with no significant past medical history. She is being seen today at [facility] at the request of Dr. Lomeli for further evaluation of chest pain and palpitations. In November of this year, she began noticing occasional palpitations or what felt like her heart wasracing. Over the past month, she noticed that these palpitations have gotten progressively worse. In addition, she is experiencing some chest discomfort that started a few days ago. She describes it as a tightness that is constant and varies in intensity. There are no aggravating or alleviating factors and she does get slightly nauseated with it. She has been feeling slightly short of breath and easily fatigued lately with her activities and when she exercises, which is unusual for her. When she is sleeping at night, she will experience some paroxsymal nocturnal dyspnea multiple times throughout the night. She believes that she might have had a presyncopal or syncopal episode 2 weeks ago and felt very dizzy prior to it happening. She does not recall losing consciousness or sustaining any injuries. She reportedly had a TSH and Thyroid US recently which were reportedly unremarkable. She lost her son 6 years ago in a motor vehicle accident and has been struggling with depression since that time. However, she does not believe that this is contributing to her symptoms. Component 04/01/2019 SODIUM 136 POTASSIUM 3.8 CHLORIDE 103 CO2 28.6 GLUCOSE 133 (H) BUN 14 CREATININE 0.85 CALCIUM 9.0 ANION GAP 4.4 (L) OSMOLALITY (CALC) 284 eGFR Non-Afr. Amer. 77 (L) eGFR Afr. Amer. 89 (L) GFR NOTES THE ESTIMATED GFR IS CALCULATED USING THE 2009 CKD-EPI . . . TROPONIN I <0.015 Pro-B TYPE NATRIURETIC PEPTIDE 53 Recommendations and Plan: 1. Chest pain. EKG is unremarkable. I sent her for a treadmill stress test after clinic, which was subsequently negative for ischemia. A troponin was also negative, which is reassuring that this is not myocardial ischemia. I have recommended a 14-day body guardian to further investigate her complaints of palpitations. In addition, I am recommending that she monitor her blood pressure at home as it is markedly elevated in clinic which could be causing some chest discomfort. She was sent for an echocardiogram as well. 2. Shortness of breath and fatigue. I sent her for an echocardiogram after clinic today to further evaluate her complaints of shortness of breath and fatigue. BMP revealed stable renal function and electrolytes. BNP was normal. We are awaiting those results. 3. Palpitations and near syncope. I have recommended placing a 14-day body guardian to further evaluate her complaints of palpitations and near syncope to rule out any significant arrhythmias. EKG reveals sinus rhythm without any ectopy. Ms. Sheth's follow-up will be determined pending the results of her echocardiogram and body guardian. She was encouraged to contact our office in the meantime should he have any questions or concerns. Thank you for allowing us the privilege of participating in her care. Medications: Current Outpatient Medications: ??? buPROPion XL 150 MG 24 hr tablet, Take 450 mg by mouth daily., Disp: , Rfl: ??? calcium citrate-vitamin D 315 MG-250 UNIT 315-250 MG-UNIT Tab tablet, Take 1 tablet by mouth 2 (two) times daily as needed., Disp: , Rfl: ??? estradiol 1 MG tablet, Take 1 mg by mouth daily., Disp: , Rfl: ??? Multiple Vitamins-Minerals (MULTIVITAMIN [...] file Gets together: Not on file Attends caodaism service: Not on file Active member of [...] Father (Not Specified) ??? Sister (Not Specified) Review of Systems Constitutional: Positive for fatigue. Negative for recent unintentional weight gain, recent unintentional weight loss and weakness. HENT: Negative for new or significant hearing loss. Eyes: Negative for blurred vision and double vision. Respiratory: Positive for shortness of breath. Negative for cough, wheezing and snoring. Cardiovascular: See HPI Positive for palpitations and PND. Gastrointestinal: Negative for blood in stool and melena. Genitourinary: Negative for dysuria. Musculoskeletal: Negative for myalgias and new or worsening joint stiffness/pain. Skin: Negative for rash. Neurological: Positive for dizziness. Negative for tingling/numbness and focal weakness. Endo/Heme/Allergies: Negative for new or significant bruising/bleeding and polydipsia. Psychiatric/Behavioral: Positive for depression. Negative for new or significant memory loss. Filed Vitals: 04/01/19 1134 BP: 170/88 Pulse: 68 Resp: 16 Weight: 67.3 kg (148 lb 6.4 oz) Height: 5' 6 (1.676 m) Physical Exam Rate/Rhythm: regular rhythm and normal rate . Heart Sounds: normal heart sounds, normal S1 and normal S2 no gallop, no S3 sound, no S4 sound and no murmur. . PMI: PMI not displaced. Pulses: normal pulses Right Carotid pulses 2+, Left Carotid pulses 2+, Right Radial pulses 2+, LeftRadial pulses 2+, Right DP pulses 2+, Left DP pulses 2+, negative for edema Constitutional: healthy appearance not distressed. . Neck: normal range of motion and neck supple no JVD. . Pulmonary/Chest Wall: effort normal and breath sounds normal no rales and no wheezes . . HEENT: teeth/gums normal. . Abdomen: abdomen soft no distension and no hepatomegaly. . Eyes: conjunctivae normal. Neurological: alert, oriented x 3 and appropriate for situation, Neuro exam grossly normal . Skin: dry and warm Without evidence of xanthoma no cyanosis and no clubbing. Musculoskeletal: no kyphosis normal ROM Cardiovascular Comments: Diagnoses/Impression: 1. Chest pain, unspecified type TROPONIN, QUANT CTA CORONARY W SCORING 2. Shortness of breath BNP BASIC METABOLIC PANEL TROPONIN, QUANT CTA CORONARY W SCORING USE ECHOCARDIOGRAM 3. Syncope, unspecified syncope type MOBILE CONTINUOUS TELEMETRY 4. Palpitations Referring Provider: Sabas Lomeli PCP: SABAS LOMELI MD documented in this encounter Plan of Treatment Not on file documented as of this encounter Results * TROPONIN, QUANT (04/01/2019 1:52 PM CDT) TROPONIN I <0.015 <0.045 ng/mL. 04/01/2019 2:[address] [facility] 04/01/2019 1:52 PM CDT YENNIFER Alarcon APRN LABORATORY Final Result Performing Organization Address City/State/[facility] Co de Phone Number [facility] [address] [place] [phone], [id number] * (ABNORMAL) BASIC METABOLIC PANEL (04/01/2019 1:52 PM CDT) Pathologist [facility] SODIUM S/P/B 136 136 - 145 MMOL/L 04/01/2019 2:[address] [facility] POTASSIUM S/P/B 3.8 3.5 - 5.1 MMOL/L 04/01/2019 2:[address] [facility] CHLORIDE S/P/B 103 98 - 107 MMOL/L 04/01/2019 2:[address] [facility] CO2 28.6 21.0 - 32.0 MMOL/L 04/01/2019 2:[address] [facility] GLUCOSE 133(H) 74 - 106 MG/DL 04/01/2019 2:[address] [facility] BUN 14 7 - 18 MG/DL 04/01/2019 2:[address] [facility] CREATININE S/P/B 0.85 0.55 - 1.02 MG/DL 04/01/2019 2:[address] [facility] CALCIUM S/P/B 9.0 8.5 - 10.1 MG/DL 04/01/2019 2:[address] [facility] ANION GAP 4.4(L) 5.0 - 15.0 MMOL/L 04/01/2019 2:[address] [facility] Comment:REFERENCE RANGE NOT ESTABLISHED OSMOLALITY (CALC) 284 MOSM/KG 04/01/2019 2:[address] [facility] Comment:REFERENCE RANGE NOT ESTABLISHED EGFR NON-AFR. AMER. 77(L) >90 ML/MIN/1 .73 M2 04/01/2019 2:[address] [facility] EGFR AFR. AMER. 89(L) >90 ML/MIN/1 .73 M2 04/01/2019 2:[address] [facility] GFR NOTES THE ESTIMATED GFR IS CALCULATED USING THE 2009 CKD-EPI EQUATION. THE FOLLOWING CATEGORIES FOR GRADING RENAL FUNCTION ARE RECOMMENDED BY THE INTERNATIONAL SOCIETY OF NEPHROLOGY (KDIGO 2012 CLINICAL PRACTICE GUIDELINE). 04/01/2019 2:[address] [facility] Comment: G1,NORMAL OR HIGH: >89 ml/min/1.73 m2 G2,MILDLY DECREASED: 60-89 ml/min/1.73 m2 G3A,MILDLY TO MODERATELY DECREASED: 45-59 ml/min/1.73 m2 G3B,MODERATELY TO SEVERELY DECREASED: 30-44 ml/min/1.73 m2 G4,SEVERELY DECREASED: 15-29 ml/min/1.73 m2 G5,KIDNEY FAILURE: <15 ml/min/1.73 m2 04/01/2019 1:52 PM CDT Yolanda Huston APRN, MINING MANAGER-C LABORATORY Final Result [facility] [address] [place] [address], [id number] * USE ECHOCARDIOGRAM (04/01/2019) Anatomical Region Laterality Modality Cardiac Echocardiogram YENNIFER Alarcon APRN ECHO Final Result * MOBILE CONTINUOUS TELEMETRY (04/01/2019) YENNIFER Alarcon APRN CV VASCULAR ORDERABLES Final Result documented in this encounter Visit Diagnoses Diagnosis Chest pain, unspecified type- Primary Shortness of breath Syncope, unspecified syncope type Palpitations documented in this encounter Care Teams Cash Register Repairer Relationship Specialty Start Date End Date Sabas Lomeli MD [address] [place] [phone] PCP - General FAMILY PRACTICE 03/31/19 Yolanda Huston APRN, SANIYA-C [address] [place] [phone] CARDIOVASCULAR DISEASE 03/31/19 documented as of this encounter
--- OUTSIDE RECORDS SUMMARY | 2024-10-18 01:31 | XMS_ITS | Encounter Summary ---
Author Organization [facility] Address [address] [place] [address]. [place] [address] [place] [address] Care Team Providers Care Diet Clerk Name Role Phone Sabas Lomeli MD Primary Care Provider [phone] Yolanda Huston APRN, NP-C Unavailable [phone] Reason for Visit * Imaging (Routine) - Closed Specialty Diagnoses / Procedures Referred By Contac t Referred To Contact RADIOLOGY / [facility] CT Diagnoses Multiple lung nodules on CT Lower abdominal pain Procedures CT GD BX LUNG RT CT GD BX LUNG LT Mirian Mandujano MD Phone: tel: fax: [facility] [address] [place] [address] Phone: tel: Referral ID Status Reason Start Date Expiration Date Visits Re quested Visits Authorized [id number] Closed 05/11/2019 06/11/2020 1 1 Encounter Details Date Type Department Care Team (Latest Contact Info) Description 05/17/2019 8:43 AM CDT - 05/17/2019 11:59 PM CDT Hospital Encounter [facility] [address] [place] [address] Mirian Mandujano MD [address] [place], [place] [id number] Discharge Disposition: Home or Self Care (Routine [...] Sign Reading Time Taken Comments Blood Pressure 119/84 05/17/2019 11:50 AM CDT Pulse 69 05/17/2019 11:50 AM CDT Temperature - - Respiratory Rate 15 05/17/2019 11:50 AM CDT Oxygen Saturation 98% 05/17/2019 11:50 AM CDT Inhaled Oxygen Concentration - - Weight 65.8 kg (145 lb) 05/17/2019 9:02 AM CDT Height 167.6 cm (5' 6 ) 05/17/2019 9:02 AM CDT Body Mass Index 23.4 05/17/2019 9:02 AM CDT documented in this encounter Discharge Instructions * Discharge Instructions* Jada Gipson RN - 05/17/2019 9:22 AM CDT Post lung biopsy discharge instructions reviewed and copy given to patient. EC RN documented in this encounter Medications at Time [...] as of this encounter H&P Notes * Carlin Jo MD - 05/17/2019 10:29 AM CDT HISTORY AND PHYSICAL INTERVAL NOTE: I have reviewed Ashu Sheth History & Physical which was performed within the past 30 days. After examining Ashu Sheth, no change has occurred in the patient's condition since the H&P was completed. Informed Consent Discussion: Risks, benefits, alternatives as well as the consequences of not performing the surgery/procedure were discussed with the patient and/or family/personal personal financial representative. Questions were answered and the patient/family/personal personal financial representative verbalized understanding and desires to proceed. Source Note - Mirian Mandujano MD - 05/11/2019 3:00 PM CDT Identifying Data Subjective Ashu Sheth is a 53-year-old female who is kindly referred by Dr.Bruce Lomeli to [facility] hem/Onc service for lung nodules. Reason for consultation : Consult Referral physician: PCP: SABAS LOMELI MD MD ATT: Mirian Mandujano MD History of Present Illness: Patient [...] to 3 weeks. She was referred to food court team member . Her cardiac enzymes EKG. 2D ECHO [...] file Gets together: Not on file Attends jainism service: Not on file Active member of [...] bilateral lungs shown by CT scan at [place], [place] on 04/01/19--is it metastatic malignancy or [...] 2019: negative for malignancy. - She saw [facility]OR/Onc Dr. Vera who is going to do [...] workup. - Symptomatic management with tylenol and Carriere if needed. 3. Tobacco abuse: she quit [...] coordination of care. Providers PRIMARY MEDICAL ONCOLOGIST: MIRIAN MANDUJANO MD PRIMARY CARE PROVIDER: SABAS LOMELI MD CONSULT SERVICES: Hematology Oncology CC: SABAS LOMELI MD CC; Dr. Neel Vera, [facility] [employer]/ONC. documented in this encounter OR Notes * Pre-Sedation Assessment - Carlin Jo MD - 05/17/2019 10:29 AM CDT Sedation Pre-Evaluation Reviewed the following in the patient's chart: Patient summary Medications Labs Images/Studies Patient has no history sedation complication Past sedation history was obtained from patient. Written consent was given by the patient for today's procedure. Reviewed the following alternative(s) to sedation: analgesia without sedation. Pre-Sedation Assessment Patient has an ASA score of: 2. The plan is to use moderate (conscious sedation) sedation for today's procedure. Physical Exam: Airway Status: Mallampati: II Cardiovascular: normal Pulmonary: normal documented in this encounter Plan of Treatment Not on file documented as of this encounter Procedures Procedure Name Priority Date/Time Associated Diagnosis Comments XR CHEST PA OR AP 1V Today 05/17/2019 12:25 PM CDT Multiple pulmonary nodules determined by computed tomography of lung PATHOLOGY Routine 05/17/2019 11:[address] GD BX LUNG RT Routine 05/17/2019 10:1 8 AM CDT Multiple lung nodules on CT Lower abdominal pain PROTHROMBIN TIME, VENOUS Routine 05/17/2019 8:54 AM CDT Multiple lung nodules on CT Lower abdominal pain documented in this encounter Results * XR CHEST PA OR AP 1V (05/17/2019 12:25 PM CDT) Anatomical Region Laterality Modality Chest Radiographic Gloria ging 05/17/2019 1:12 PM CDT Impressions 05/17/2019 3:04 PM CDT IMPRESSION: No acute cardiopulmonary findings. No pneumothorax. The attending radiologist has reviewed the image(s) and agrees with the content of this report. Interpreted By: Jose Maria Knutson, 05/17/2019 1:12 PM Narrative 05/17/2019 3:04 PM CDT Examination: XR CHEST PA OR AP 1V Exam time: 05/17/2019 12:26 PM Clinical history: Right lower lobe pulmonary nodule status post right lung biopsy. Comparison: CTA chest from 04/13/2019. Technique: PA view of the chest. Findings: The cardiac mediastinal silhouette is within normal limits. No pulmonary vascular congestion. Lungs demonstrate no focal consolidation. No pleural effusion. No pneumothorax. The known right lower lobe lung mass is not well visualized on this plain film exam. No acute osseous abnormalities identified. Thoracic spondylosis. Procedure Note Seth Miranda MD - 05/17/2019 Examination: XR CHEST PA OR AP 1V Exam time: 05/17/2019 12:26 PM Clinical history: Right lower lobe pulmonary nodule status post rightlung biopsy. Comparison: CTA chest from 04/13/2019. Technique: PA view of the chest. Findings: The cardiac mediastinal silhouette is within normal limits. No pulmonary vascular congestion. Lungs demonstrate no focal consolidation. No pleural effusion. No pneumothorax. The known right lower lobe lung mass is not wellvisualized on this plain film exam. No acute osseous abnormalities identified. Thoracic spondylosis. IMPRESSION: No acute cardiopulmonary findings. No pneumothorax. The attending radiologist has reviewed the image(s) and agrees with the content of this report. Interpreted By: Jose Maria Knutson, 05/17/2019 1:12 PM Mirian Mandujano MD GENERAL IMAGING Final Result * Pathology (05/17/2019 11:56 AM CDT) PATHOLOGY [facility] ? Department of Laboratory Medicine ?[address] ?[place] [address] ? , extension [phone] ? Pathology Report ? Surgical Pathology Report Name: ASHU SHETH ?Specimen #: [id number] Age: 12 1965 (Age: 53) ? Location: [facility] Sex: F ?Procedure Date: 05/17/2019 Hospital #: [id number] ?Date Received: 05/17/2019 Date Reported: 05/18/2019 Provider: MIRIAN MANDUJANO ?CARLIN JO Source: Lung, right, nodule, biopsy Clinical History: Multiple lung nodules with large mass in left pelvis. Gross Description: Received in formalin, labeled with a patient label and as right lung biopsy are two less than 0.1 cm diameter cores of white-garcia tissue, each approximately 0.8 cm in length. ??Two touch preparation slides are received. ??The specimen is entirely submitted in cassette 1. Intraoperative Diagnosis: RAPID ON-SITE EVALUATION: LUNG, RIGHT NODULE, BIOPSY TOUCH PREP: ? - PASS 1: ??SCANT. ??BRONCHIAL CELLS AND MACROPHAGES. ? - PASS 2: ??SCANT. ??BRONCHIAL CELLS AND MACROPHAGES. ?? On site evaluation performed by Magaly Hawley. FINAL DIAGNOSIS: LUNG, RIGHT NODULE, BIOPSY: ? - PORTION OF LUNG WITH ORGANIZATION, TYPE 2 PNEUMOCYTE HYPERPLASIA, MIXED ? LYMPHOCYTIC INFLAMMATION AND HEMOSIDERIN LADEN MACROPHAGES. ? - SEE COMMENT. 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 ??No distinct neoplastic process is identified within these biopsies. ??Clinical correlation is required to assess whether this biopsy represents the targeted lesion. ??This case was seen in consult with Dr. Beny Alexandre. Electronically Signed Out ? WILLARD KAPOOR [facility] 05/17/2019 11:5 6 AM CDT 05/17/2019 11:56 AM CDT Comment:LUNG, RIGHT, NODULE, BIOPSY Mirian Mandujano MD PATHOLOGY/CYTOLOGY ORDERABLES Fi nal Result [facility] [address] [place] [address], [id number] * CT GD BX LUNG RT (05/17/2019 10:18 AM CDT) Anatomical Region Laterality Modality Chest Computed Tomogra phy, Radiographic Imaging 05/17/2019 10:2 8 AM CDT Impressions 05/17/2019 10:31 AM CDT IMPRESSION: Percutaneous biopsy of a 7 mm right lower lobe lung nodule with CT guidance. PLAN: Given that no periprocedural pneumothorax was seen, a followup inspiration/expiration chest x-ray will be obtained in 2 hours. If there is no delayed pneumothorax at that point, the patient will be discharged. ??If a delayed pneumothorax is seen, consideration will be given to obtaining an additional followup inspiration/expiration chest x-ray in another 2 hours. Interpreted By: Carlin Jo, 05/17/2019 10:28 AM Narrative 05/17/2019 10:31 AM CDT PROCEDURE: CT-guided percutaneous right lower lobe lung nodule biopsy. DATE OF PROCEDURE: 05/17/2019 10:28 AM INDICATION: ??53 yearsold Femalewith history of previous ovarian mass with resection now with recurrent pelvic mass and multiple small pulmonary parenchymal bilateral nodules who presents for percutaneous biopsy. PHYSICIANS: Carlin Jo M.D. MEDICATIONS: IV conscious sedation was administered by qualified interventional radiology nursing staff under direct supervision of the interventional radiologist with continuous monitoring including pulse, blood pressure, O2 sat and end tidal CO2. Intra-service and sedation time with the radiologist present was 11 minutes. IV sedation medication administered: 1 mg Versed, 50 mcg Fentanyl TECHNIQUE AND FINDINGS: Informed written consent was obtained. The patient was then brought to the CT scanner suite, placed in the prone position, and a timeout was performed. ??Preliminary CT scan was then performed, demonstrating multiple small stable pulmonary nodules. A dose lowering technique was used for this procedure, which may include, but is not limited to, dose reduction techniques, automated exposure control, the use of a iterative reconstruction, and ALARA (as low as reasonably achievable)/image gently techniques. ??A safe needle entry pathway was selected, and the overlying skin was marked. The right lower back was then prepped and draped, using maximal sterile barrier technique. ??Subsequently, after 1% lidocaine local anesthesia, a 19-gauge introducer needle was advanced from a posterior approach towards the targeted right lower lobe lung lesion under breath-hold technique. Once the introducer needle was advanced to the targeted lesion, again under breath-hold technique, the introducer needle stylette was removed and a 20-gauge biopsy needle was advanced into the introducer. Following this, 2 passes were made with the biopsy needle. ??The samples were then placed in formalin and later taken to surgical pathology for analysis. ??The needle was then removed under breath-hold technique, with a small amount of aspiration applied using a syringe in order to remove any potential pneumothorax. A sterile occlusive dressing was then applied. Postprocedure CT scan was then performed, demonstrating a small amount of expected parenchymal hemorrhage in the region of biopsy, with no pneumothorax. The patient tolerated procedure well. Procedure Note Carlin Jo MD - 05/17/2019 PROCEDURE: CT-guided percutaneous right lower lobe lung nodule biopsy. DATE OF PROCEDURE: 05/17/2019 10:28 AM INDICATION: 53 yearsold Femalewith history of previous ovarian masswith resection now with recurrent pelvic mass and multiple small pulmonary parenchymal bilateral nodules who presents for percutaneous biopsy. PHYSICIANS: Carlin Jo M.D. MEDICATIONS: IV conscious sedation was administered by qualified interventional radiology nursing staff under direct supervision of the interventional radiologist with continuous monitoring including pulse, blood pressure, O2 sat and end tidal CO2. Intra-service and sedationtime with the radiologist present was 11 minutes. IV sedation medication administered: 1 mg Versed, 50 mcg Fentanyl TECHNIQUE AND FINDINGS: Informed written consent was obtained. The patient was then brought tothe CT scanner suite, placed in the prone position, and a timeout was performed. Preliminary CT scan was then performed, demonstratingmultiple small stable pulmonary nodules. A dose lowering technique was used forthis procedure, which may include, but is not limited to, dose reduction techniques, automated exposure control, the use of a iterative reconstruction, and ALARA (as low as reasonably achievable)/image gently techniques. A safe needle entry pathway was selected, and the overlying skin was marked. The right lower back was then prepped and draped, using maximal sterile barrier technique. Subsequently, after 1% lidocaine local anesthesia, a 19-gauge introducer needle was advanced from a posterior approach towards the targeted right lower lobe lung lesion under breath-hold technique. Once the introducer needle was advanced to the targeted lesion, again under breath-hold technique, the introducerneedle stylette was removed and a 20-gauge biopsy needle was advanced into the introducer. Following this, 2 passes were made with the biopsy needle.The samples were then placed in formalin and later taken to surgicalpathology for analysis. The needle was then removed under breath-hold technique, with a small amount of aspiration applied using a syringe in order to remove any potential pneumothorax. A sterile occlusive dressing was then applied. Postprocedure CT scan was then performed, demonstrating a small amount of expected parenchymal hemorrhage in the region of biopsy, withno pneumothorax. The patient tolerated procedure well. IMPRESSION: Percutaneous biopsy of a 7 mm right lower lobe lung nodule with CT guidance. PLAN: Given that no periprocedural pneumothorax was seen, a followup inspiration/expiration chest x-ray will be obtained in 2 hours. If thereis no delayed pneumothorax at that point, the patient will be discharged.If a delayed pneumothorax is seen, consideration will be given to obtainingan additional followup inspiration/expiration chest x-ray in another 2hours. Interpreted By: Carlin Jo, 05/17/2019 10:28 AM us Mirian Mandujano MD CT Final Result * PROTIME/INR, VENOUS (05/17/2019 8:54 AM CDT) PROTIME 12.2 11.6 - 14.3 SEC 05/17/2019 9:07 AM CDT [facility] INR 1.0 0.9 - 1.1 05/17/2019 9:07 AM CDT [facility] 05/17/2019 8:54 AM CDT us Mirian Mandujano MD LABORATORY Final Result [facility] [address] [place] [address], [id number] documented in this encounter Visit Diagnoses Diagnosis Multiple pulmonary nodules determined by computed tomography of lung- Primary Multiple lung nodules on CT Lower abdominal pain Abdominal pain, other specified site documented in this encounter Administered Medications Inactive Administered Medications - up to 3 most recent administrations Medication Order MAR Action Action Date Dose Rate Site fentaNYL (SUBLIMAZE) injection Code/trauma/sedation medication, Starting on Thu05/17/19 at 0957, Until Thu05/17/19 at 0957 Given 05/17/2019 9:57 AM CDT 50 mcg lidocaine (XYLOCAINE) 1 % injection SOLN 5 mL 5 mL, Intradermal, Once, 1 dose, On Thu05/17/19 at 1045 Given 05/17/2019 10:24 AM CDT 5 mLs Incision Site midazolam (VERSED) injection Code/trauma/sedation medication, Starting on Thu05/17/19 at 0957, Until Thu05/17/19 at 0957 Given 05/17/2019 9:57 AM CDT 1 mg documented in this encounter Care Teams Diet Clerk Relationship Specialty Start Date End Date Sabas Lomeli MD [address] [place] [phone] PCP - General FAMILY PRACTICE 03/31/19 Yolanda Huston APRN, JOURNEYMAN MACHINIST-C [address] [place] [phone] CARDIOVASCULAR DISEASE 03/31/19 documented as of this encounter
--- OUTSIDE RECORDS SUMMARY | 2024-10-18 01:35 | XMS_ITS | Continuity of Care Document ---
Author Organization [facility] Address [address] [place] [address] Care Team Providers Care Business Practices Officer Name Role Phone RONNIE OLIVER Primary Care Provider Assessment No assessment recorded. Plan of Treatment Reminders Order Date Submit Date Provider Last Modified By Organization Details Last Modified Time Details Appointments None recorded. Lab None recorded. Referral None recorded. Procedures None recorded. Surgeries None recorded. Imaging None recorded. Medication Orders ropinirole 2 mg tablet 2023 [facility], [address], [place], [id number], 12:40:43 oxybutynin chloride ER 10 mg tablet,exte nded release 24 hr 2023 [facility], [address], [place], [id number], 12:40:46 bupropion HCl SR 150 mg tablet,12 hr sustained-r elease 2023 [facility], [address], [place], [id number], 12:40:44 Patient TargetsNo targets recorded. Patient Instructions Encounter Date Encounter Id Patient Instructions Last Modified By Organization Details Last Modified Time 08/17/2024 [id number] restless legs syndrome: care instructions [email or web address] Not available 08/17/2024 12:40:23 Stress Incontinence: Care Instructions [email or web address] Not available 08/17/2024 12:40:23 Reason for Referral None Reported. Results Created Date Observation Date Name Description Value Unit Range Abnormal Flag Note LastModifiedBy Organization Detail LastModifiedTime 10/14/20 24 10/14/2024 MAMMO , scree bhupinder, digit al, bilat eral No observ ation record ed. [facility] [address], [place], [address], 10/17/2024 08:45:42 Result Notes None recorded. Problems Name Problem SNOMED Code Status Onset Date Resolution Date Notes Provider Name and Address Organization Details Recorded Time Chronic depression 083189695 Active 021 Ronnie Oliver PA-C Attn: Yayanaif suazo,[address] [place], [address], [place] - [facility] 14:21:44 Chronic anxiety 665644825 Active 021 Ronnie Oliver PA-C Attn: Yayanaif g,[address] [place], [address], [place] [facility] 14:21:56 Restless legs 22398338 Active 021 Ronnie Oliver PA-C Attn: Yayanaif suazo,[address] [facility], [place], [address], [place] - [facility] 14:22:41 Problem Notes None recorded. Procedures Surgical History Date Name Laterality Status Provider Name and Address Organization Details Recorded Time 11/02/19 20 cholecystectomy completed Madhuri Gibbs [place] [facility] 07/16/2021 16:06:19 11/02/19 19 colonoscopy completed Dottie Adrian [place] - [facility] 03/05/2022 16:45:58 11/02/19 17 total replacement of left hip joint completed Madhuri Gibbs [place] [facility] 07/16/2021 16:05:58 Hysterectomy/revise vagina completed Madhuri Gibbs MA [facility] 07/16/2021 16:05:39 Imaging Results None recorded. Procedure Notes None recorded. Medical Equipment None Reported. Allergies Allergen ID Allergen Name Allergen Category Reaction Reaction Severity Criticality Documentation Date Start Date Code Code System Note Provider Name and Address Organization Details Recorded Time 517015 Medicinal product containin g penicilli n and acting as antibacte rial agent (product) medicatio n rash Not available Not available 07/16/2021 [id number] GABINO Quevedo, [place] - [facility] 15:56:55 [id number] Substance with sulfonami de structure and antibacte rial mechanism of action (substanc e) medicatio n rash Not available Not available 07/16/2021 [id number] GABINO Quevedo, [place] - [facility] 15:57:09 Medications Name Sig Start Date Stop Date Status Note LastModified by Organization Details LastModified Time bupropion HCl SR 150 mg tablet,12 hr sustained-re lease Take 1 tablet twice a day by oral route for 90 days. active Not Available Not Available No t Available ropinirole 1 mg tablet TAKE ONE TABLET BY MOUTH AT BEDTIME 06/17 completed Not Available Not Available Not Available trazodone 50 mg tablet TAKE ONE TABLET BY MOUTH NIGHTLY AT BEDTIME 06/17 completed Not Available Not Available Not Available oxybutynin chloride ER 10 mg tablet,exten ded release 24 hr Take 1 tablet every day by oral route for 90 days. active Not Available Not Available No t Available hydrocodone 5 mg-acetamino phen 325 mg tablet 08/17 completed Not Available Not Available Not Available metronidazol e 250 mg tablet 08/17 completed Not Available Not Available Not Available clindamycin HCl 150 mg capsule 08/17 completed Not Available Not Available Not Available ciprofloxaci n 500 mg tablet Take 1 tablet every 12 hours by oral route for 10 days. 08/17 completed Not Available Not Available Not Available lorazepam 0.5 mg tablet Take 2 tablets as needed by oral route as needed. active Not Available Not Available No t Available estradiol 1 mg tablet TAKE ONE TABLET BY MOUTH DAILY active Not Available Not Available No t Available ropinirole 2 mg tablet Take 1 tablet 3 times a day by oral route as needed for 30 days. active Not Available Not Available No t Available cephalexin 500 mg capsule 08/17 completed Not Available Not Available Not Available estradiol 2 mg tablet active Not Available Not Available No t Available ibuprofen 600 mg tablet active Not Available Not Available Not Available methylpredni solone 4 mg tablets in a dose pack 08/17 completed Not Available Not Available Not Available nitrofuranto in monohydrate/ macrocrystal s 100 mg capsule TAKE 1 CAPSULE BY MOUTH EVERY 12 HOURS FOR 7 DAYS 08/17 completed Not Available Not Available Not Available chlorhexidin e gluconate 0.12 % mouthwash 08/17 completed Not Available Not Available Not Available estradiol 1mg 03/05 completed Not Available Not Available Not Available bupropion HCl 150 mg 03/05 completed Not Available Not Available Not Available Vitals Date Recorded Body weight Body mass index (BMI) Body height Oxygen saturation Oxygen saturation in Arterial blood by Pulse oximetry Heart rate Systolic blood pressure Diastolic blood pressure Provider Name and Address Organization Details Last Updated DateTime 4 82422.8 8 g 25.5 kg/m2 168.91 cm 98 % 98 % 73 /min 126 mm[Hg] 79 mm[Hg] Davida Watkins [place] - [facility] 12:03:03 Social History Question Answer Notes LastModified by [employer] ion Details LastModified Time Tobacco Smoking Status Former Smoker Madhuri Gibbs MA null, [place] - [facility] 07/16/2021 16:04:31 What Is Your Level Of Alcohol Consumption? Occasional Information not available 07/16/2021 Are You Blind Or Do You Have Difficulty Seeing? No Information not available 06/17/2023 What Is Your Level Of Caffeine Consumption? Moderate Information not available 07/16/2021 In The 14 Days Before Symptom Onset, Have You Had Close Contact With A Laboratory-confir med COVID-19 While That Case Was Ill? No Information not available 07/16/2021 In The 14 Days Before Symptom Onset, Have You Had Close Contact With A Person Who Is Under Investigation For COVID-19 While That Person Was Ill? No Information not available 07/16/2021 Have You Been To An Area Known To Be High Risk For COVID-19? No Information not available 07/16/2021 Are You Currently Employed? Yes Information not available 07/16/2021 Are You Deaf Or Do You Have Serious Difficulty Hearing? No Information not available 06/17/2023 What Type Of Diet Are You Following? REGULAR Information not available 07/16/2021 Are There Any Guns Present In Your Home? No Information not available 07/16/2021 What Was The Date Of Your Most Recent Tobacco Screening? 08/17/2024 Information not available 08/17/2024 What Is Your Relationship Status? Information not available 07/16/2021 Do You Use Your Seat Belt Or Car Seat Routinely? Yes Information not available 07/16/2021 Do You Have Smoke And Carbon Monoxide Detectors In Your Home? Yes Information not available 07/16/2021 Are You Passively Exposed To Smoke? Yes Information no t available 07/16/2021 Do You Feel Stressed (tense, Restless, Nervous, Or Anxious, Or Unable To Sleep At Night)? [id number] Information not available 07/16/2021 Do You Use Any Illicit Or Recreational Drugs? No Information not available 07/16/2021 Do You Use Sunscreen Routinely? Yes Information not available 07/16/2021 Has Tobacco Cessation Counseling Been Provided? No [email or web address] Information not available 03/05/2022 On What Date Was Tobacco Cessation Counseling Provided? 08/17/2024 Information not available 08/17/2024 Do You Or Have You Ever Used Any Other Forms Of Tobacco Or Nicotine? No Information not available 07/16/2021 Sex: Female Functional Status Question Answer Note LastModified by Organizat ion Details LastModified Time Are you able to care for yourself? Yes Information not available 06/17/2023 What is your exercise level? Occasional Information not available 07/16/2021 Mental Status None recorded. Family History Relationship Description Onset Age of this Age Resolved Age Notes LastModified by Organization Details LastModified Time Father No current problems or disability [email or web address] Not available 07/03 16:03:46 Mother No current problems or disability [email or web address] Not available 07/03 16:03:46 Medical History Condition Response Coronary Artery Disease N Other N High Blood Pressure N Atrial Fibrillation N Kidney or Bladder Problems Y Thyroid Problems N GI Problems N Depression N COPD N Blood Clots N Skin Problems N Eating Disorder N Anemia N Heart Attack (DE) N Anxiety Disorder N Diabetes N Muscle, Joint, or Bone Problems Y Seizures/Epilepsy N Acid Reflux (GERD) N Cancer N Stroke N Asthma N Allergies Y ADHD N Substance Abuse N High Cholesterol N Hepatitis N Liver Disease N Schizophrenia N Headaches N Osteoporosis Y Heart Failure N Gynecological History Statement/Question Response Date of Last Mammogram Obstetrics History GPAL:G 0 P 0 0 0 0 Immunizations Vaccine Type Date Status Note Provider Nam e and Address Organization Details Recorded Time COVID-19, mRNA, LNP-S, PF, 100 mcg/0.5mL dose or 50 mcg/0.25mL dose 11/02/2020 completed Madhuri [place], [place] [facility] 07/16/2021 16:02:35 COVID-19, mRNA, LNP-S, PF, 100 mcg/0.5mL dose or 50 mcg/0.25mL dose 12/03/2020 completed Dottie Adrian [place], [place] [facility] 03/05/2022 16:43:49 Past Encounters Encounter ID Performer Location Encounter Start Date Encounter Closed Date Diagnosis/Indication Diagnosis SNOMED-CT Code Diagnosis ICD10 Code [id number] Ronnie Oliver PA-C 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 F41.8 Urinary incontinence 165 174743 N39.3 Restless legs 90259678 G 25.81 Body mass index 20-24 - normal 102445042 Z68.24 Health Concerns Section Related Observation LastModified by Organization Detai ls LastModified Time None Recorded Concern Status LastModified by Organization Details LastModified Time None Recorded Payers Encounter Date Sequence Insurance Name Policy Number Policy Mahmood Covered Member ID Mahmood Member ID Guarantor Name 08/17/2024 1 [place] [id number] Henrry Sheth [id number] 25 Gabi Sheth Notes Date Note Type Note Provider Name and Address Organization Details Recorded Time 08/17/2024 text/html 1 year phys..needs refills on ropinerole oxybutin buproprion...gets labs thru her chiro? Ronnie Oliver PA-C Attn: Accounting,[address] [facility], [place], [address], [facility] 08/17/2024 12:41:15 OBGyn Episode No OBEpisode recorded.
--- OUTSIDE RECORDS SUMMARY | 2024-10-18 01:35 | XMS_ITS | Data Portability ---
Author Organization [facility] Address [address] [facility] [place] [address] Care Team Providers Care Straightener And Aligner Name Role Phone RONNIE OLIVER Primary Care Provider Assessment No assessment recorded. Plan of Treatment Reminders Order Date Submit Date Provider Last Modified By Organization Details Last Modified Time Details Appointments None recorded. Lab CBC 2021 022 [facility], [address] [facility] [address], [place], [address], 10:13:25 CMP, serum or plasma 2021 022 [facility], [address] [facility] [address], [place], [address], 10:13:24 lipid panel, serum 2021 022 [facility], [address] [facility] [address], [place], [address], 10:13:26 TSH + free T4, serum 2021 022 [facility], [address] [facility], [facility], [place], [address], 10:13:24 urinalysis , dipstick 2021 022 ross In-Office Order, Internal Use Only DO Not Attach Compendium DO Not Attach Compendium, Do Not Delete/merge, [id number] 14:21:19 CBC 2022 023 [facility], [address] [facility], [facility], [place], [address], 09:30:50 CMP, serum or plasma 2022 023 [facility], [address] [facility], [facility], [place], [address], 09:30:48 lipid panel, serum 2022 023 [facility], [address] [facility], [facility], [place], [address], 09:30:47 Referral None recorded. Procedures None recorded. Surgeries None recorded. Imaging bone density - PA [facility] [address], [place], [address], 09:20:50 Medication Orders ropinirole 1 mg tablet 2020 021 [facility], [facility] [place], [id number], 12:20:44 oxybutynin chloride ER 10 mg tablet,ext ended release 24 hr 2020 021 [facility], [facility] [place], [place], [id number], 1 16:49:07 lorazepam 0.5 mg tablet 2020 021 [facility], [facility] [place], [id number], 2 16:42:32 trazodone 50 mg tablet 2020 021 [facility], [address] [facility] [place], [id number], 3 12:20:52 bupropion HCl SR 150 mg tablet,12 hr sustained- release 2020 021 [facility] [place], [address], [place], [place], [id number], 1 16:49:02 ropinirole 1 mg tablet 2021 022 [facility] [place], [address], [place], [place], [id number], 3 12:20:44 estradiol 1 mg tablet 2021 022 [facility] [place], [address], [place], [place], [id number], 2 17:51:50 oxybutynin chloride ER 10 mg tablet,ext ended release 24 hr 2021 022 [facility] [place], [address], [place], [place], [id number], 2 17:51:56 bupropion HCl SR 150 mg tablet,12 hr sustained- release 2021 [facility] [place], [address], [place], [place], [id number], 2 17:51:53 trazodone 50 mg tablet 2021 022 [facility] [place], [address], [place], [place], [id number], 3 12:20:52 ropinirole 2 mg tablet 2022 023 [facility] [place], [address], [place], [place], [id number], 3 12:25:38 oxybutynin chloride ER 10 mg tablet,ext ended release 24 hr 2022 023 [facility] [place], [address], [place], [place], [id number], 3 12:25:33 bupropion HCl SR 150 mg tablet,12 hr sustained- release 2022 023 [facility] [place], [address], [place], [place], [id number], 3 12:25:39 lorazepam 0.5 mg tablet 2022 023 [facility] [place], [address], [facility] [place], [id number], 3 12:25:44 ropinirole 2 mg tablet 2023 [facility] [place], [address], [place], [place], [id number], 4 12:40:43 oxybutynin chloride ER 10 mg tablet,ext ended release 24 hr 2023 024 [facility] [place], [address], [place], [place], [id number], 4 12:40:46 bupropion HCl SR 150 mg tablet,12 hr sustained- release 2023 024 [facility] [place], [address], [place], [place], [id number], 4 12:40:44 Patient TargetsNo targets recorded. Patient Instructions Encounter Date Encounter Id Patient Instructions Last Modified By Organization Details Last Modified Time 07/16/2021 [id number] restless legs syndrome: care instructions ross Not available 07/16/2021 16:48:06 Stress Incontinence: Care Instructions jnanney Not available 07/16/2021 16:48:06 07/10/2022 [id number] painful urinatio n (dysuria): care instructions jnanney Not available 07/10/2022 14:21:19 06/17/2023 [id number] A healthy lifestyle: care instructions jnanney Not available 06/17/2023 12:25:25 08/17/2024 [id number] restless legs syndrome: care instructions jnanney Not available 08/17/2024 12:40:23 Stress Incontinence: Care Instructions jnanney Not available 08/17/2024 12:40:23 Reason for Referral None Reported. Results Created Date Observation Date Name Description Value Unit Range Abnormal Flag Note LastModifiedBy Organization Detail LastModifiedTime 03/06/20 22 03/07/2022 TSH+F REE T4 TSH 4.150 uIU/m L 0.450- 4.500 Not Available [facility] ([facility]) [address] [place], [address], 03/07/2022 10:13:24 03/06/20 22 03/07/2022 TSH+F REE T4 T4,free(dire ct) 1.45 NG/dL 0.82-1 .77 Not Available [facility] ([facility]) [address] [place], [address], 03/07/2022 10:13:24 03/06/20 22 03/07/2022 COMP. METAB OLIC PANEL (14) glucose 89 mg/dL 65-99 Not Available [facility] ([facility]) [address] [place], [address], 03/07/2022 10:13:24 03/06/20 22 03/07/2022 COMP. METAB OLIC PANEL (14) BUN 14 mg/dL 6-24 Not Available [facility] ([facility]) [address] [place], [address], 03/07/2022 10:13:24 03/06/20 22 03/07/2022 COMP. METAB OLIC PANEL (14) creatinine 0.80 mg/dL 0.57-1 .00 Not Available [facility] ([facility]) [address] [facility] [place], [address], 03/07/2022 10:13:24 03/06/20 22 03/07/2022 COMP. METAB OLIC PANEL (14) eGFR 85 mL/mi n/1.7 3 >59 Not Available [facility] ([facility]) [address] [facility] [place], [address], 03/07/2022 10:13:24 03/06/20 22 03/07/2022 COMP. METAB OLIC PANEL (14) BUN/creatini ne ratio 18 9-23 Not Available [facility] ([facility]) [address] [facility], [place], [address], 03/07/2022 10:13:24 03/06/20 22 03/07/2022 COMP. METAB OLIC PANEL (14) sodium 137 mmol/ L 134-14 4 Not Available [facility] ([facility]) [address] [facility] [place], [address], 03/07/2022 10:13:24 03/06/20 22 03/07/2022 COMP. METAB OLIC PANEL (14) potassium 4.5 mmol/ L 3.5-5. 2 Not Available [facility] ([place]) [address] [place], [address], 03/07/2022 10:13:24 03/06/20 22 03/07/2022 COMP. METAB OLIC PANEL (14) chloride 100 mmol/ L 96-106 Not Available [facility] ([facility]) [address] [place], [address], 03/07/2022 10:13:24 03/06/20 22 03/07/2022 COMP. METAB OLIC PANEL (14) carbon dioxide, total 21 mmol/ L 20-29 Not Available [facility] ([facility]) [address] [place], [address], 03/07/2022 10:13:24 03/06/20 22 03/07/2022 COMP. METAB OLIC PANEL (14) calcium 9.6 mg/dL 8.7-10 .2 Not Available [facility] ([facility]) [address] [place], [address], 03/07/2022 10:13:24 03/06/20 22 03/07/2022 COMP. METAB OLIC PANEL (14) protein, total 7.1 g/dL 6.0-8. 5 Not Available [facility] ([facility]) [address] [place], [address], 03/07/2022 10:13:24 03/06/20 22 03/07/2022 COMP. METAB OLIC PANEL (14) albumin 4.6 g/dL 3.8-4. 9 Not Available [facility] ([facility]) [address] [place], [address], 03/07/2022 10:13:24 03/06/20 22 03/07/2022 COMP. METAB OLIC PANEL (14) globulin, total 2.5 g/dL 1.5-4. 5 Not Available [facility] ([facility]) [address] [place], [address], 03/07/2022 10:13:24 03/06/20 22 03/07/2022 COMP. METAB OLIC PANEL (14) A/G ratio 1.8 1.2-2. 2 Not Available [facility] ([facility]) [address] [place], [address], 03/07/2022 10:13:24 03/06/20 22 03/07/2022 COMP. METAB OLIC PANEL (14) bilirubin, total <0.2 mg/dL 0.0-1. 2 Not Available [facility] ([facility]) [address] [facility], [place], [address], 03/07/2022 10:13:24 03/06/20 22 03/07/2022 COMP. METAB OLIC PANEL (14) alkaline phosphatase 95 IU/L 44-121 Not Available [facility] ([facility]) [address] [facility], [place], [address], 03/07/2022 10:13:24 03/06/20 22 03/07/2022 COMP. METAB OLIC PANEL (14) AST (SGOT) 14 IU/L 0-40 Not Available [facility] ([facility]) [address] [facility] [place], [address], 03/07/2022 10:13:24 03/06/20 22 03/07/2022 COMP. METAB OLIC PANEL (14) ALT (SGPT) 11 IU/L 0-32 Not Available [facility] ([facility]) [address] [facility], [place], [address], 03/07/2022 10:13:24 03/06/20 22 03/07/2022 CBC, PLATE LET, NO DIFFE RENTI AL WBC 8.5 x10e3 /uL 3.4-10 .8 Not Available [facility] ([facility]) [address] [place], [address], 03/07/2022 10:13:25 03/06/20 22 03/07/2022 CBC, PLATE LET, NO DIFFE RENTI AL RBC 4.79 x10e6 /uL 3.77-5 .28 Not Available [facility] ([facility]) [address] [facility], [place], [address], 03/07/2022 10:13:25 03/06/20 22 03/07/2022 CBC, PLATE LET, NO DIFFE RENTI AL hemoglobin 14.3 g/dL 11.1-1 5.9 Not Available [facility] ([facility]) [address] [place], [address], 03/07/2022 10:13:25 03/06/20 22 03/07/2022 CBC, PLATE LET, NO DIFFE RENTI AL hematocrit 43.2 % 34.0-4 6.6 Not Available [facility] ([facility]) [address] [facility], [place], [address], 03/07/2022 10:13:25 03/06/20 22 03/07/2022 CBC, PLATE LET, NO DIFFE RENTI AL MCV 90 fL 79-97 Not Available [facility] ([facility]) [address] [facility], [place], [address], 03/07/2022 10:13:25 03/06/20 22 03/07/2022 CBC, PLATE LET, NO DIFFE RENTI AL MCH 29.9 pg 26.6-3 3.0 Not Available [facility] ([facility]) [address] [facility], [place], [address], 03/07/2022 10:13:25 03/06/20 22 03/07/2022 CBC, PLATE LET, NO DIFFE RENTI AL MCHC 33.1 g/dL 31.5-3 5.7 Not Available [facility] ([facility]) [address] [facility], [place], [address], 03/07/2022 10:13:25 03/06/20 22 03/07/2022 CBC, PLATE LET, NO DIFFE RENTI AL RDW 12.8 % 11.7-1 5.4 Not Available [facility] ([facility]) [address] [place], [address], 03/07/2022 10:13:25 03/06/20 22 03/07/2022 CBC, PLATE LET, NO DIFFE RENTI AL platelets 363 x10e3 /uL 150-45 0 Not Available [facility] ([facility]) [address] [place], [address], 03/07/2022 10:13:25 03/06/20 22 03/07/2022 CBC, PLATE LET, NO DIFFE RENTI AL NRBC ASSISTANT COMMUNITY MANAGER Not Available [facility] ([facility]) [address] [facility], [place], [address], 03/07/2022 10:13:25 03/06/20 22 03/07/2022 LIPID PANEL cholesterol, total 218 mg/dL 100-19 9 above high normal Not Available [facility] ([facility]) [address] [place], [address], 03/07/2022 10:13:25 03/06/20 22 03/07/2022 LIPID PANEL triglyceride s 107 mg/dL 0-149 Not Available [facility] ([facility]) [address] [place], [address], 03/07/2022 10:13:25 03/06/20 22 03/07/2022 LIPID PANEL HDL cholesterol 67 mg/dL >39 Not Available [facility] ([facility]) [address] [place], [address], 03/07/2022 10:13:25 03/06/20 22 03/07/2022 LIPID PANEL VLDL cholesterol violet 19 mg/dL 5-40 Not Available [facility] ([facility]) [address] [facility], [place], [address], 03/07/2022 10:13:25 03/06/20 22 03/07/2022 LIPID PANEL LDL chol calc ([facility]) 132 mg/dL 0-99 above high normal Not Available [facility] ([facility]) [address] [place], [address], 03/07/2022 10:13:25 03/06/20 22 03/07/2022 LIPID PANEL comment: ASSISTANT COMMUNITY MANAGER Not Available [facility] ([facility]) [address] [place], [address], 03/07/2022 10:13:25 03/06/20 22 03/07/2022 CARDI OVASC ULAR REPOR T interpretati on Note Suppl sonal pearson t is avail able. Not Available [facility] ([facility]) [address] [facility], [place], [address], 03/07/2022 10:13:26 03/06/20 22 03/07/2022 CARDI OVASC ULAR REPOR T pdf . Not Available [facility] ([facility]) [address] [facility], [place], [address], 03/07/2022 10:13:26 07/10/20 22 07/10/2022 urina lysis , dipst ick Leukocytes Large Not Available In-Offi ce Order Internal Use Only DO Not Attach Compendium DO Not Attach Compendium, Do Not Delete/merge, 07/10/2022 14:17:24 07/10/20 22 07/10/2022 urina lysis , dipst ick Nitrite positi ve Not Available In-Office Order Internal Use Only DO Not Attach Compendium DO Not Attach Compendium, Do Not Delete/merge, 07/10/2022 14:17:24 07/10/20 22 07/10/2022 urina lysis , dipst ick Urobilinogen 1 Not Available In-Of fice Order Internal Use Only DO Not Attach Compendium DO Not Attach Compendium, Do Not Delete/merge, 07/10/2022 14:17:24 07/10/20 22 07/10/2022 urina lysis , dipst ick Protein 30 Not Available In-Office Order Internal Use Only DO Not Attach Compendium DO Not Attach Compendium, Do Not Delete/merge, 07/10/2022 14:17:24 07/10/20 22 07/10/2022 urina lysis , dipst ick pH 6.0 Not Available In-Office Order Internal Use Only DO Not Attach Compendium DO Not Attach Compendium, Do Not Delete/merge, [id number] 07/10/2022 14:17:24 07/10/20 22 07/10/2022 urina lysis , dipst ick Blood Negati ve Not Available In-Office Order Internal Use Only DO Not Attach Compendium DO Not Attach Compendium, Do Not Delete/merge, 07/10/2022 14:17:24 07/10/20 22 07/10/2022 urina lysis , dipst ick Specific Williams 1.020 Not Available In-Off ice Order Internal Use Only DO Not Attach Compendium DO Not Attach Compendium, Do Not Delete/merge, 07/10/2022 14:17:24 07/10/20 22 07/10/2022 urina lysis , dipst ick Ketone Trace Not Available In-Office Order Internal Use Only DO Not Attach Compendium DO Not Attach Compendium, Do Not Delete/merge, 07/10/2022 14:17:24 07/10/20 22 07/10/2022 urina lysis , dipst ick Bilirubin Negati ve Not Available In-Office Order Internal Use Only DO Not Attach Compendium DO Not Attach Compendium, Do Not Delete/merge, 07/10/2022 14:17:24 07/10/20 22 07/10/2022 urina lysis , dipst ick Glucose Negati ve Not Available In-Office Order Internal Use Only DO Not Attach Compendium DO Not Attach Compendium, Do Not Delete/merge, 07/10/2022 14:17:24 07/10/20 22 07/10/2022 urina lysis , dipst ick Appearance Clear Not Available In-Offi ce Order Internal Use Only DO Not Attach Compendium DO Not Attach Compendium, Do Not Delete/merge, 07/10/2022 14:17:24 07/10/20 22 07/10/2022 urina lysis , dipst ick Color Yellow Not Available In-Office Order Internal Use Only DO Not Attach Compendium DO Not Attach Compendium, Do Not Delete/merge, 07/10/2022 14:17:24 06/17/20 23 06/18/2023 LIPID PANEL cholesterol, total 217 mg/dL 100-19 9 above high normal Not Available [facility] ([facility]) [address], [place], [address], 06/18/2023 09:30:47 06/17/20 23 06/18/2023 LIPID PANEL triglyceride s 95 mg/dL 0-149 Not Available [facility] ([facility]) [address] [place], [address], 06/18/2023 09:30:47 06/17/20 23 06/18/2023 LIPID PANEL HDL cholesterol 75 mg/dL >39 Not Available [facility] ([facility]) [address] [place], [address], 06/18/2023 09:30:47 06/17/20 23 06/18/2023 LIPID PANEL VLDL cholesterol violet 17 mg/dL 5-40 Not Available [facility] ([facility]) [address] [place], [address], 06/18/2023 09:30:47 06/17/20 23 06/18/2023 LIPID PANEL LDL chol calc ([facility]) 125 mg/dL 0-99 above high normal Not Available [facility] ([facility]) [address] [place], [address], 06/18/2023 09:30:47 06/17/20 23 06/18/2023 COMP. METAB OLIC PANEL (14) glucose 92 mg/dL 70-99 Not Available [facility] ([facility]) [address] [place], [address], 06/18/2023 09:30:48 06/17/20 23 06/18/2023 COMP. METAB OLIC PANEL (14) BUN 17 mg/dL 6-24 Not Available [facility] ([facility]) [address] [place], [address], 06/18/2023 09:30:48 06/17/20 23 06/18/2023 COMP. METAB OLIC PANEL (14) creatinine 0.80 mg/dL 0.57-1 .00 Not Available [facility] ([facility]) [address] [place], [address], 06/18/2023 09:30:48 06/17/20 23 06/18/2023 COMP. METAB OLIC PANEL (14) eGFR 85 mL/mi n/1.7 3 >59 Not Available [facility] ([facility]) [address], [place], [address], 06/18/2023 09:30:48 06/17/20 23 06/18/2023 COMP. METAB OLIC PANEL (14) BUN/creatini ne ratio 21 9-23 Not Available [facility] ([facility]) [address] [facility], [place], [address], 06/18/2023 09:30:48 06/17/20 23 06/18/2023 COMP. METAB OLIC PANEL (14) sodium 135 mmol/ L 134-14 4 Not Available [facility] ([facility]) [address] [facility], [place], [address], 06/18/2023 09:30:48 06/17/20 23 06/18/2023 COMP. METAB OLIC PANEL (14) potassium 4.7 mmol/ L 3.5-5. 2 Not Available [facility] ([facility]) [address] [facility], [place], [address], 06/18/2023 09:30:48 06/17/20 23 06/18/2023 COMP. METAB OLIC PANEL (14) chloride 97 mmol/ L 96-106 Not Available [facility] ([facility]) [address] [facility] [place], [address], 06/18/2023 09:30:48 06/17/20 23 06/18/2023 COMP. METAB OLIC PANEL (14) carbon dioxide, total 22 mmol/ L 20-29 Not Available [facility] ([facility]) [address] [facility] [place], [address], 06/18/2023 09:30:48 06/17/20 23 06/18/2023 COMP. METAB OLIC PANEL (14) calcium 9.9 mg/dL 8.7-10 .2 Not Available [facility] ([facility]) [address], [place], [address], 06/18/2023 09:30:48 06/17/20 23 06/18/2023 COMP. METAB OLIC PANEL (14) protein, total 6.9 g/dL 6.0-8. 5 Not Available [facility] ([facility]) [address], [place], [address], 06/18/2023 09:30:48 06/17/20 23 06/18/2023 COMP. METAB OLIC PANEL (14) albumin 4.3 g/dL 3.8-4. 9 Not Available [facility] ([facility]) [address], [place], [address], 06/18/2023 09:30:48 06/17/20 23 06/18/2023 COMP. METAB OLIC PANEL (14) globulin, total 2.6 g/dL 1.5-4. 5 Not Available [facility] ([facility]) [address] [facility], [place], [address], 06/18/2023 09:30:48 06/17/20 23 06/18/2023 COMP. METAB OLIC PANEL (14) A/G ratio 1.7 1.2-2. 2 Not Available [facility] ([facility]) [address] [facility], [place], [address], 06/18/2023 09:30:48 06/17/20 23 06/18/2023 COMP. METAB OLIC PANEL (14) bilirubin, total 0.3 mg/dL 0.0-1. 2 Not Available [facility] ([facility]) [address] [facility], [place], [address], 06/18/2023 09:30:48 06/17/20 23 06/18/2023 COMP. METAB OLIC PANEL (14) alkaline phosphatase 106 IU/L 44-121 Not Available [facility] ([facility]) [address] [facility], [place], [address], 06/18/2023 09:30:48 06/17/20 23 06/18/2023 COMP. METAB OLIC PANEL (14) AST (SGOT) 15 IU/L 0-40 Not Available [facility] ([facility]) [address] [facility], [place], [address], 06/18/2023 09:30:48 06/17/20 23 06/18/2023 COMP. METAB OLIC PANEL (14) ALT (SGPT) 12 IU/L 0-32 Not Available [facility] ([facility]) [address] [facility], [place], [address], 06/18/2023 09:30:48 06/17/20 23 06/18/2023 CARDI OVASC ULAR REPOR T interpretati on Note Suppl ement al repor t is avail able. Not Available [facility] ([facility]) [address] [facility], [place], [address], 06/18/2023 09:30:49 06/17/20 23 06/18/2023 CARDI OVASC ULAR REPOR T pdf . Not Available [facility] ([facility]) [address] [facility], [place], [address], 06/18/2023 09:30:49 06/17/20 23 06/18/2023 CBC, PLATE LET, NO DIFFE RENTI AL WBC 9.7 x10e3 /uL 3.4-10 .8 Not Available [facility] ([facility]) [address] [facility], [place], [address], 06/18/2023 09:30:50 06/17/20 23 06/18/2023 CBC, PLATE LET, NO DIFFE RENTI AL RBC 4.65 x10e6 /uL 3.77-5 .28 Not Available [facility] ([facility]) [address] [facility], [place], [address], 06/18/2023 09:30:50 06/17/2006/18/2023 CBC, PLATE LET, NO DIFFE RENTI AL hemoglobin 14.1 g/dL 11.1-1 5.9 Not Available [facility] ([facility]) [address] [facility], [place], [address], 06/18/2023 09:30:50 06/17/2006/18/2023 CBC, PLATE LET, NO DIFFE RENTI AL hematocrit 42.0 % 34.0-4 6.6 Not Available [facility] ([facility]) [address] [facility], [place], [address], 06/18/2023 09:30:50 06/17/2006/18/2023 CBC, PLATE LET, NO DIFFE RENTI AL MCV 90 fL 79-97 Not Available [facility] ([facility]) [address] [facility], [place], [address], 06/18/2023 09:30:50 06/17/2006/18/2023 CBC, PLATE LET, NO DIFFE RENTI AL MCH 30.3 pg 26.6-3 3.0 Not Available [facility] ([facility]) [address] [facility], [place], [address], 06/18/2023 09:30:50 06/17/2006/18/2023 CBC, PLATE LET, NO DIFFE RENTI AL MCHC 33.6 g/dL 31.5-3 5.7 Not Available [facility] ([facility]) [address] [facility], [place], [address], 06/18/2023 09:30:50 06/17/2006/18/2023 CBC, PLATE LET, NO DIFFE RENTI AL RDW 12.9 % 11.7-1 5.4 Not Available [facility] ([facility]) [address] [facility], [place], [address], 06/18/2023 09:30:50 06/17/20 23 06/18/2023 CBC, PLATE LET, NO DIFFE RENTI AL platelets 428 x10e3 /uL 150-45 0 Not Available [facility] ([facility]) [address] [facility], [place], [address], 06/18/2023 09:30:50 05/06/20 22 05/06/2022 MAMMO , scree bhupinder, digit al, bilat eral No observ ation record ed. [facility] [address], [place], [address], 05/07/2022 13:01:32 05/09/20 22 05/06/2022 MAMMO , scree bhupinder, digit al, bilat eral No observ ation record ed. [facility] [address], [place], [address], 05/09/2022 12:08:58 05/09/20 22 05/06/2022 MAMMO , scree bhupinder, digit al, bilat eral No observ ation record ed. [facility] [address], [place], [address], 08/11/2024 11:45:39 05/27/20 22 05/27/2022 MAMMO , diagn ostic , digit al, bilat eral No observ ation record ed. [facility] [address], [place], [address], 05/27/2022 16:56:46 10/14/20 24 10/14/2024 MAMMO , scree bhupinder, digit al, bilat eral No observ ation record ed. [facility] [address], [place], [address], 10/17/2024 08:45:42 Result Notes None recorded. Problems Name Problem SNOMED Code Status Onset Date Resolution Date Notes Provider Name and Address Organization Details Recorded Time Chronic depression 629193200 Active 021 Ronnie Oliver PA-C Attn: Accountin g,[address] [facility], [place], [address], [place] [facility] 14:21:44 Chronic anxiety 606002550 Active 021 Ronnie Oliver PA-C Attn: Accountin g,[address] [facility], [place], [address], [place] [facility] 14:21:56 Restless legs [id number] Active 021 Ronnie Oliver PA-C Attn: Accountin g,[address] [facility], [place], [address], [place] [facility] 14:22:41 Problem Notes None recorded. Procedures Surgical History Date Name Laterality Status Provider Name and Address Organization Details Recorded Time 11/02/19 20 cholecystectomy completed Madhuri Gibbs [place] [facility] 07/16/2021 16:06:19 11/02/19 19 colonoscopy completed Dottie Adrian [place] [facility] 03/05/2022 16:45:58 11/02/19 17 total replacement of left hip joint completed Madhuri Gibbs [place] [facility] 07/16/2021 16:05:58 Hysterectomy/revise vagina completed Madhuri Gibbs MA [facility] 07/16/2021 16:05:39 Imaging Results Imaging Date Name Status Last[facility] by [facility] Details LastModified Time 05/06/2022 MAMMO, screening, digital, bilateral completed [facility] [address], [place], [address], 05/07/2022 13:01:32 05/06/2022 MAMMO, screening, digital, bilateral completed [email or web address] [facility] [address], [place], [address], 05/09/2022 12:08:58 05/06/2022 MAMMO, screening, digital, bilateral completed [facility] [address], [place], [address], 08/11/2024 11:45:39 05/27/2022 MAMMO, diagnostic, digital, bilateral completed [email or web address] [address], [place], [address], 05/27/2022 16:56:46 10/14/2024 MAMMO, screening, digital, bilateral completed [facility] [address], [place], [address], 10/17/2024 08:45:42 Procedure Notes None recorded. Medical Equipment None Reported. Allergies Allergen ID Allergen Name Allergen Category Reaction Reaction Severity Criticality Documentation Date Start Date Code Code System Note Provider Name and Address Organization Details Recorded Time 842934 Medicinal product containin g penicilli n and acting as antibacte rial agent (product) medicatio n rash Not available Not available 07/16/2021 85603 05 GABINO Quevedo [place] - [facility] 15:56:55 [id number] Substance with sulfonami de structure and antibacte rial mechanism of action (substanc e) medicatio n rash Not available Not available 07/16/2021 40947 [id number] GABINO Quevedo [place] - [facility] 15:57:09 Medications Name Sig Start Date Stop [...] Available Not Available Vitals Date Recorded Body height Body temperature Oxygen saturation Oxygen saturation in Arterial blood by Pulse oximetry Heart rate Body mass index (BMI) Body weight Systolic blood pressure Diastolic blood pressure Provider Name and Address Organization Details Last Updated DateTime 1 168.91 cm 97.7 [degF] 96 % 96 % 68 /min 23.8 kg/m2 76954.0 6 g 130 mm[Hg] 88 mm[Hg] Madhuri Gibbs [place] - [facility] 1 16:12:15 Date Recorded Body height Body temperature Oxygen saturation Oxygen saturation in Arterial blood by Pulse oximetry Heart rate Body mass index (BMI) Body weight Systolic blood pressure Diastolic blood pressure Provider Name and Address Organization Details Last Updated DateTime 2 168.91 cm 97.7 [degF] 98 % 98 % 74.04 /min 25 kg/m2 56365 g 118 mm[Hg] 70 mm[Hg] Dottie Adrian MA [facility] 2 16:48:21 Date Recorded Body weight Body mass index (BMI) Body height Respiratory rate Heart rate Oxygen saturation Oxygen saturation in Arterial blood by Pulse oximetry Systolic blood pressure Diastolic blood pressure Provider Name and Address Organization Details Last Updated DateTime 3 45480.2 6 g 23.7 kg/m2 168.91 cm 16 /min 70 /min 98 % 98 % 115 mm[Hg] 76 mm[Hg] Mackenzie Seals MA [facility] 3 12:01:49 Date Recorded Body weight Body mass index (BMI) Body height Oxygen saturation Oxygen saturation in Arterial blood by Pulse oximetry Heart rate Systolic blood pressure Diastolic blood pressure Provider Name and Address Organization Details Last Updated DateTime 4 03350.8 8 g 25.5 kg/m2 168.91 cm 98 % 98 % 73 /min 126 mm[Hg] 79 mm[Hg] Davida Watkins MA [facility] 4 12:03:03 Social History Question Answer Notes LastModified by Organizat ion Details LastModified Time Tobacco Smoking Status Former Smoker Madhuri Gibbs MA [facility] 07/16/2021 16:04:31 What Is Your Level Of [...] Anxious, Or Unable To Sleep At Night)? [id number] Information not available 07/16/2021 Do You Use [...] High Blood Pressure N Atrial Fibrillation N Thyroid Problems N Kidney or Bladder Problems Y GI Problems N Depression N COPD N Blood Clots N Skin Problems N Eating Disorder N Anemia N Heart Attack (ME) N Diabetes N Anxiety Disorder N Muscle, Joint, or Bone Problems Y [...] dose or 50 mcg/0.25mL dose 11/02/2020 completed GABINO Gibbs [place] [facility] 07/16/2021 16:02:35 COVID-19, mRNA, LNP-S, PF, 100 mcg/0.5mL dose or 50 mcg/0.25mL dose 12/03/2020 completed GABINO Dominguez [place] - [facility] 03/05/2022 16:43:49 Past Encounters Encounter ID Performer Location Encounter Start Date Encounter Closed Date Diagnosis/Indication Diagnosis SNOMED-CT Code Diagnosis ICD10 Code [id number] [facility] [address] [place] [address] 07/16/2021 15:52:36 07/16/2021 17:10:54 Mixed anxiety and depressive disorder 202367541 F41.8 Restless legs 28366243 G 25.81 Urinary incontinence 165 340169 R32 [id number] CRUZITO Mckee [address] [place] [address] 03/05/2022 16:39:04 03/05/2022 18:09:31 Mixed anxiety and depressive disorder 709426730 F41.8 Restless legs 07446941 G 25.81 Urinary incontinence 165 477420 N39.3 Hormone re placement therapy 954152163 Z79.890 [facility] th examination 859031809 Z00.00 [id number] Ritika Canseco MA [facility] [address] [place] [address] 07/10/2022 14:06:29 07/10/2022 14:26:39 Dysuria 73027000 R30.9 [id number] Davida Watkins MA [facility] [address] [place] [address] 06/17/2023 11:51:26 06/18/2023 10:58:53 Mixed anxiety and depressive disorder 380298925 F41.8 Urinary incontinence 165 033603 N39.3 Restless legs 51758556 G 25.81 Postmenopa usal osteopenia 756097854 M85.80 Overweight 612737058 E66 .3 [id number] Ronnie Oliver PA-C [facility] [address] [place] [address] 08/17/2024 11:50:31 08/18/2024 14:38:44 Mixed anxiety and depressive disorder 232119080 F41.8 Urinary incontinence 165 020396 N39.3 Restless legs 02081906 G 25.81 Body mass index 20-24 - normal 428038382 Z68.24 Health Concerns Section Related Observation LastModified by Organization Detai ls LastModified Time None Recorded Concern Status LastModified by Organization Details LastModified Time None Recorded Advance Directives Directive None Recorded Payers Encounter Date Sequence Insurance Name Policy Number Policy Mahmood Covered Member ID Mahmood Member ID Guarantor Name 07/16/2021 1 [place] [id number] Henrry Sheth [id number] Gabi Sheth 03/05/2022 1 [place] [id number] Henrry Sheth [id number] Gabi Sheth 07/10/2022 1 [place] [id number] Henrry Sheth [id number] Gabi Sheth 06/17/2023 1 [place] [id number] Henrry Sheth [id number] Gabi Sheth 08/17/2024 1 [place] [id number] Henrry Sheth [id number] Gabi Sheth Notes Date Note Type Note Provider Name and Address Organization Details Recorded Time 07/16/2021 text/html 55 y/o female presents for new patient evaluation. States she was seeing Dr. Kamara in [place] but recently got a job in [place] so she is re-establishing care. Endorses past medical history of RLS, bladder control, depression, menopausal symptoms, and difficulty sleeping. States she had left hip replacement in 2017 and has been doing well ever since. States she does not take pain medication and does not report any complaints. States she fractures her foot a few years ago while gardening. States she was gardening recently and thinks she stepped wrong when she was using the shovel. Endorses right pain that is worse with walking and bearing weight. Patient works at [place] [employer] and states she has been taping on her foot. Patient has been taking herbal T-relief for pain that has provided some relief. Denies numbness, tingling, or decreases sensation. Ronnie Oliver PA-C Attn: [address] [place], [address], [facility] 07/16/2021 16:49:05 03/05/2022 text/html Gabi Sheth is a 56 year old female with history of pelvic cysts post-total hysterectomy who presents for medication check. She feels her medications are working pretty well for her. She is able to sleep most of the time. When she is having a really hard time sleeping she takes the lorazepam - this occurs only 1-2 times a month. 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 She states these supplements have helped her with joint pains. She denies n/v, fever, rash, bloating, quick satiety, unintended weight loss. Ronnie Oliver PA-C Attn: [address] [place], [address], [facility] 03/05/2022 17:55:31 06/17/2023 text/html needs a bone density test...hx of osteopenia...also med refills...3 month vs lorazepam...has frequent and worsening knee pain Davida Watkins MA null, [place] - [facility] 06/17/2023 12:32:34 08/17/2024 text/html 1 year phys..rika ds refills on ropinerole oxybutin buproprion...gets labs thru her chiro? Ronnie Oliver PA-C Attn: [address] [facility], [place], [address], [facility] - [facility] 08/17/2024 12:41:15 OBGyn Episode No OBEpisode recorded.
== END 2024-10-14 15:23 | disposition home or self-care (01) ==
LOC: ANHIMG 15:24
PROVIDERS: PCP Physician Assistant; Visit Provider Obstetrics & Gynecology
DX: Z12.31 Encounter for screening mammogram for malignant neoplasm of breast (principal)
CPT/HCPCS: 77063; 77067